=== PATIENT | male | born 1960 | race Caucasian/White ===

== ENCOUNTER 2017-02-21 07:55 | Emergency (ER) | payer MEDICAID ==
[~2017-02-21] VITALS: Ht 182.9 cm; Wt 108.9 kg
[~2017-02-21 07:55] MED LIST: ASPI-498 PO; CYCL1TAB18 PO; FENO145T20 PO; GABA-339 PO; IBUP800T24 PO; LIS5T PO; LOVA10TA54 PO; METF-372; NOR10T PO
[2017-02-21] MEDS ORDERED: SODIUM CHLORIDE 0.9% 1,000 ML IV ONE (08:49)
[2017-02-21] MEDS ORDERED: DIAZEPAM 5 MG/ML 2ML SYRG IV ONE (09:00)
[2017-02-21 09:30] LABS: Albumin 3.9 g/dL (3.4-5.0); BUN/Creatinine Ratio 12.1; Bilirubin, Total 0.5 mg/dL (0.2-1.0); Calcium 9.5 mg/dL (8.5-10.1); Potassium 4.2 mmol/L (3.5-5.1); Total Protein 8.2 g/dL (6.4-8.2)
[2017-02-21 09:51] LABS: Basophils # (auto) 0.1 uL; Basophils % (auto) 1.2 % (0.0-2.0); Eosinophils # (auto) 0.2 uL; Eosinophils % (auto) 1.5 % (0.0-7.0); Hematocrit 47.2 % (41.0-53.0); Hemoglobin 15.4 g/dL (13.5-17.5); Lymphocytes # (auto) 1.7 uL; Lymphocytes % (auto) 15.9 % (10.0-50.0); Mean Corpuscular Hemoglobin 30.6 pg (28.0-32.0); Mean Corpuscular Hgb Conc. 32.6 g/dL (32.0-36.0); Mean Corpuscular Volume 93.9 fL (80.0-100.0); Mean Platelet Volume 10.4 fL (6.9-10.8); Monocytes # (auto) 0.9 uL; Monocytes % (auto) 8.1 % (0.0-12.0); Neutrophils # (auto) 7.9 uL; Neutrophils % (auto) 73.3 % (37.0-80.0); Platelet Count (auto) 203 10^3/uL (140-450); Red Cell Distribution Width 13.8 % (11.8-14.3); White Blood Cell 10.8 10^3/uL (4.4-10.8)
[2017-02-21] MEDS ORDERED: LORazepam 2MG/ML-1ML VIAL IV ONE (10:00)
[2017-02-21 10:34] VITALS: BP 107/85
== END 2017-02-21 11:53 | disposition home or self-care (01) ==
LOC: ER 07:55
DX: M62.838 Other muscle spasm (principal); I10 Essential (primary) hypertension; J45.909 Unspecified asthma, uncomplicated; E11.9 Type 2 diabetes mellitus without complications; Z86.73 Personal history of transient ischemic attack (TIA), and cerebral infarction without residual deficits; Z79.82 Long term (current) use of aspirin; Z88.1 Allergy status to other antibiotic agents
CPT/HCPCS: 36415; 80053; 82962; 83735; 85025; 94761; 96361; 96374; 99284; J2060; J7030

== ENCOUNTER 2017-07-15 18:38 | Emergency (ER) | payer MEDICAID ==
[~2017-07-15] VITALS: Ht 182.9 cm; Wt 108.0 kg
[~2017-07-15 18:38] MED LIST changes: -FENO145T20 PO; +FENO1TAB42 PO
[2017-07-15 18:43] VITALS: BP 171/87
[2017-07-15] MEDS ORDERED: KETOROLAC TROMETH 60MG/2ML VIAL IM ONE (22:15)
[2017-07-15] MEDS ORDERED: CYCLOBENZAPRINE HCL 10 MG TAB PO ONE (22:15)
[2017-07-15] MEDS ORDERED: HYDROcodone-ACET 10/325MG TAB PO ONE (23:30)
== END 2017-07-16 00:15 | disposition home or self-care (01) ==
LOC: ER 18:38
DX: S22.42XA Multiple fractures of ribs, left side, initial encounter for closed fracture (principal); S62.641A Nondisplaced fracture of proximal phalanx of left index finger, initial encounter for closed fracture; S00.83XA Contusion of other part of head, initial encounter; I10 Essential (primary) hypertension; E11.9 Type 2 diabetes mellitus without complications; E78.5 Hyperlipidemia, unspecified; Z79.82 Long term (current) use of aspirin; W07.XXXA Fall from chair, initial encounter; Y93.89 Activity, other specified; Y92.89 Other specified places as the place of occurrence of the external cause; Y99.8 Other external cause status
CPT/HCPCS: 29130; 70140; 71101; 71250; 73130; 96372; 99284; J1885

== ENCOUNTER 2017-07-17 09:41 | Emergency (ER) | payer MEDICAID ==
[~2017-07-17] VITALS: Ht 182.9 cm; Wt 86.2 kg
[2017-07-17 10:06] VITALS: BP 137/76
[2017-07-17 10:36] LABS: Basophils # (auto) 0.1 uL; Basophils % (auto) 0.5 % (0.0-2.0); Eosinophils # (auto) 0.1 uL; Eosinophils % (auto) 1.3 % (0.0-7.0); Hematocrit 45.8 % (41.0-53.0); Hemoglobin 15.3 g/dL (13.5-17.5); Lymphocytes # (auto) 1.1 uL; Lymphocytes % (auto) 10.6 % (10.0-50.0); Mean Corpuscular Hgb Conc. 33.5 g/dL (32.0-36.0); Mean Corpuscular Volume 89.6 fL (80.0-100.0); Monocytes # (auto) 0.8 uL; Neutrophils # (auto) 8.4 uL; Neutrophils % (auto) 79.6 % (37.0-80.0); Platelet Count (auto) 191 10^3/uL (140-450); Red Blood Cells 5.12 10^6/uL (4.5-5.90); White Blood Cell 10.5 10^3/uL (4.4-10.8)
[2017-07-17 10:52] LABS: Albumin 3.6 g/dL (3.4-5.0); BUN/Creatinine Ratio 14.5; Bilirubin, Total 0.7 mg/dL (0.2-1.0); Calcium 8.7 mg/dL (8.5-10.1); Potassium 3.7 mmol/L (3.5-5.1); Total Protein 7.5 g/dL (6.4-8.2)
[2017-07-17] MEDS ORDERED: ONDANSETRON HCL 4 MG/2 ML VIAL IV ONE (11:30)
[2017-07-17] MEDS ORDERED: MORPHINE SULFATE 4 MG/ML SYR/VIAL IV ONE (11:30)
== END 2017-07-17 13:02 | disposition home or self-care (01) ==
LOC: EDBD 09:41 → ER 09:41
DX: S22.42XA Multiple fractures of ribs, left side, initial encounter for closed fracture (principal); M79.645 Pain in left finger(s); E78.5 Hyperlipidemia, unspecified; I10 Essential (primary) hypertension; E11.9 Type 2 diabetes mellitus without complications; W19.XXXA Unspecified fall, initial encounter; Y93.89 Activity, other specified; Y92.89 Other specified places as the place of occurrence of the external cause; Y99.8 Other external cause status
CPT/HCPCS: 36415; 71250; 80053; 85025; 93005; 96374; 96375; 99285; J2270; J2405

== ENCOUNTER 2017-07-19 02:09 | Inpatient (IN) | payer MEDICAID ==
[~2017-07-19] VITALS: Ht 182.9 cm; Wt 107.9 kg
[2017-07-19 04:35] LABS: Basophils # (auto) 0 uL; Basophils % (auto) 0.3 % (0.0-2.0); Eosinophils # (auto) 0 uL; Eosinophils % (auto) 0.3 % (0.0-7.0); Hematocrit 45.9 % (41.0-53.0); Hemoglobin 15.3 g/dL (13.5-17.5); Lymphocytes # (auto) 0.9 uL; Lymphocytes % (auto) 5.9 % (10.0-50.0); Mean Corpuscular Hemoglobin 30.3 pg (28.0-32.0); Mean Corpuscular Hgb Conc. 33.4 g/dL (32.0-36.0); Mean Corpuscular Volume 90.8 fL (80.0-100.0); Monocytes # (auto) 1.2 uL; Monocytes % (auto) 7.3 % (0.0-12.0); Neutrophils # (auto) 13.6 uL; Neutrophils % (auto) 86.2 % (37.0-80.0); Nucleated Red Blood Cells % 0.1 %; Platelet Count (auto) 219 10^3/uL (140-450); Red Blood Cells 5.06 10^6/uL (4.5-5.90); White Blood Cell 15.8 10^3/uL (4.4-10.8)
[2017-07-19 04:53] LABS: Alanine Aminotransferase 30 U/L (16-61); Albumin 3.7 g/dL (3.4-5.0); Anion Gap 4 (5-15); BUN/Creatinine Ratio 15.8; Blood Urea Nitrogen 12 mg/dL (7-18); Calcium 8.6 mg/dL (8.5-10.1); Carbon Dioxide 30 mmol/L (21-32); Chloride 101 mmol/L (98-107); GFR African American 137 mL/min; GFR Non-African American 113 mL/min; Glucose 240 mg/dL (74-106); Potassium 4.1 mmol/L (3.5-5.1); Sodium 135 mmol/L (136-145)
[2017-07-19 04:58] LABS: Alkaline Phosphatase 70 U/L (45-117); Aspartate Aminotransferase 19 U/L (15-37); Bilirubin, Total 0.7 mg/dL (0.2-1.0); Total Protein 8.1 g/dL (6.4-8.2)
[2017-07-19] MEDS ORDERED: SODIUM CHLORIDE 0.9% 1,000 ML IV ONE ×2 (08:02→12:28)
[2017-07-19] MEDS ORDERED: IOHEXOL 350 MG/ML 100ML IJ ONE (08:11)
[2017-07-19] MEDS ORDERED: ONDANSETRON HCL 4 MG/2 ML VIAL IV ONE (08:15)
[2017-07-19] MEDS ORDERED: MORPHINE SULFATE 4 MG/ML SYR/VIAL IV ONE (08:15)
[2017-07-19 10:57] LABS: Urine WBC None Seen /hpf (0 - 3)
[2017-07-19 11:14] LABS: Urine Bacteria NONE SEEN /hpf (None Seen); Urine Blood Negative /uL (Negative); Urine Specific Gravity 1.042 (1.001-1.035)
[2017-07-19] MEDS ORDERED: cefTRIAXone 1GM/10ml IVPUSH 10 ML IV ONE (12:30)
[2017-07-19] MEDS ORDERED: ALBUTEROL SULF 2.5 MG/0.5ML(0.5%) NEB SOLN NEB PRN (12:45)
[2017-07-19] MEDS ORDERED: ACETAMINOPHEN 500 MG TAB PO PRN (12:45)
[2017-07-19] MEDS ORDERED: PROMETHAZINE HCL 25 MG/ML 1ML IV PRN (12:45)
[2017-07-19] MEDS ORDERED: NITROGLYCERIN 0.4 MG SL TAB SL PRN (12:45)
[2017-07-19] MEDS ORDERED: LORazepam 0.5 MG TAB PO PRN (12:45)
[2017-07-19] MEDS ORDERED: DEXTROSE (50%) 50ML SYRG IV PRN (12:45)
[2017-07-19] MEDS ORDERED: OSELTAMIVIR 75 MG CAP PO ONE (12:45)
[2017-07-19] MEDS ORDERED: HYDROcodone-ACET 5/325MG TAB PO PRN (12:45)
[2017-07-19] MEDS ORDERED: MORPHINE SULFATE 4 MG/ML SYR/VIAL IV PRN (12:45)
[2017-07-19] MEDS: SODIUM CHLORIDE 0.9% 1,000 ML IV SCH (13:24)
[2017-07-19 13:27] LABS: Alcohol, Urine < 3.0 mg/dL (0-5); Amphetamine Screen, Urine NEGATIVE (NEGATIVE); Barbiturate Scree,Urine NEGATIVE (NEGATIVE); Benzodiazephine Screen, Urine NEGATIVE (NEGATIVE); Cannabinoid Screen, Urine POSITIVE (NEGATIVE); Cocaine Screen, Urine NEGATIVE (NEGATIVE); Opiate Scree,Urine POSITIVE (NEGATIVE); Phencyclidine Screen, Urine NEGATIVE (NEGATIVE)
[2017-07-19] MEDS ORDERED: AZITHROMYCIN 500MG/ 250ML 250 ML IV SCH (13:30)
[2017-07-19 13:59] VITALS: BP 122/69
[2017-07-19] MEDS: HYDROcodone-ACET 10/325MG TAB PO PRN (14:14)
[2017-07-19] MEDS: LISINOPRIL 5 MG TAB PO SCH (14:14)
[2017-07-19] MEDS: ASPirin-EC 81 mg tab PO SCH (14:14)
[2017-07-19] MEDS: ENOXAPARIN SOD 40 MG/0.4 ML SYRINGE SC SCH (14:15)
[2017-07-19] MEDS: MORPHINE SULFATE 4 MG/ML SYR/VIAL IV PRN ×2 (14:44→19:03)
[2017-07-19] MEDS ORDERED: methylPREDNISolone SOD SUCC 125 MG/2 ML VL IV ONE (15:00)
[2017-07-19] MEDS: CLINDAMYCIN 600MG IV 50 ML IV SCH ×2 (15:28→22:27)
[2017-07-19 16:00] VITALS: BP 117/70
[2017-07-19] MEDS: ACCU-CHEK COMFORT CURVE STRIP VI SCH ×2 (16:59→22:00)
[2017-07-19] MEDS: InsuLIN REG 1unit/0.01ml Soln (100units/ml) SC SCH ×2 (17:06→22:00)
[2017-07-19] MEDS: ALBUTEROL SULF 2.5 MG/0.5ML(0.5%) NEB SOLN NEB SCH (19:10)
[2017-07-19] MEDS: IPRATROPIUM BROM 0.5 MG/2.5ML INH SOL NEB SCH (19:11)
[2017-07-19 20:00] VITALS: BP 119/69
[2017-07-19] MEDS ORDERED: PATIENTS OWN MEDICATION (Gabapentin 800 MG) PO SCH (22:00)
[2017-07-19] MEDS ORDERED: PATIENTS OWN MEDICATION (Lovastatin 10 MG) PO SCH (22:00)
[2017-07-19 22:13] VITALS: BP 119/69
[2017-07-19] MEDS: GABAPENTIN 400 MG CAP PO SCH (22:26)
[2017-07-19] MEDS: OSELTAMIVIR 75 MG CAP PO SCH (22:26)
[2017-07-19] MEDS: CYCLOBENZAPRINE HCL 10 MG TAB PO SCH (22:26)
[2017-07-19] MEDS: PRAVASTATIN SODIUM 20 MG TAB PO SCH (22:26)
[2017-07-19] MEDS: MORPHINE SULF 15mg ER tab PO SCH (22:27)
[2017-07-19] MEDS: methylPREDNISolone SOD SUCC 40 MG/ML VL IV SCH (22:27)
[2017-07-20] MEDS: ALBUTEROL SULF 2.5 MG/0.5ML(0.5%) NEB SOLN NEB SCH ×4 (01:11→18:00)
[2017-07-20] MEDS: IPRATROPIUM BROM 0.5 MG/2.5ML INH SOL NEB SCH ×4 (01:11→18:00)
[2017-07-20] MEDS: MORPHINE SULFATE 4 MG/ML SYR/VIAL IV PRN ×2 (01:23→05:56)
[2017-07-20 05:37] VITALS: BP 117/66
[2017-07-20 05:44] LABS: Basophils # (auto) 0 uL; Basophils % (auto) 0.1 % (0.0-2.0); Eosinophils # (auto) 0 uL; Hemoglobin 14.3 g/dL (13.5-17.5); Lymphocytes # (auto) 0.4 uL; Mean Corpuscular Hemoglobin 30.1 pg (28.0-32.0); Mean Corpuscular Hgb Conc. 33.3 g/dL (32.0-36.0); Mean Corpuscular Volume 90.5 fL (80.0-100.0); Monocytes # (auto) 0.3 uL; Monocytes % (auto) 1.7 % (0.0-12.0); Neutrophils # (auto) 13.8 uL; Neutrophils % (auto) 95.2 % (37.0-80.0); Platelet Count (auto) 220 10^3/uL (140-450); Red Blood Cells 4.75 10^6/uL (4.5-5.90); Red Cell Distribution Width 13.6 % (11.8-14.3); White Blood Cell 14.5 10^3/uL (4.4-10.8)
[2017-07-20] MEDS: SODIUM CHLORIDE 0.9% 1,000 ML IV SCH ×2 (05:57→15:48)
[2017-07-20] MEDS: CLINDAMYCIN 600MG IV 50 ML IV SCH ×3 (06:02→22:19)
[2017-07-20] MEDS: ACCU-CHEK COMFORT CURVE STRIP VI SCH ×3 (06:50→17:35)
[2017-07-20] MEDS: InsuLIN REG 1unit/0.01ml Soln (100units/ml) SC SCH ×3 (06:51→17:35)
[2017-07-20 06:52] LABS: Albumin 3.2 g/dL (3.4-5.0); BUN/Creatinine Ratio 18.8; Bilirubin, Total 0.6 mg/dL (0.2-1.0); Calcium 8.9 mg/dL (8.5-10.1); Total Protein 7.6 g/dL (6.4-8.2)
[2017-07-20 08:00] VITALS: BP 114/69
[2017-07-20] MEDS: OSELTAMIVIR 75 MG CAP PO SCH (08:02)
[2017-07-20] MEDS ORDERED: cefTRIAXone 1GM/10ml IVPUSH 10 ML IV SCH (09:00)
[2017-07-20] MEDS: GABAPENTIN 400 MG CAP PO SCH ×2 (09:03→22:18)
[2017-07-20] MEDS: ASPirin-EC 81 mg tab PO SCH (09:04)
[2017-07-20] MEDS: methylPREDNISolone SOD SUCC 40 MG/ML VL IV SCH ×2 (09:04→22:19)
[2017-07-20] MEDS: ENOXAPARIN SOD 40 MG/0.4 ML SYRINGE SC SCH (09:04)
[2017-07-20] MEDS: Fenofibrate 145MG TAB PO SCH (09:04)
[2017-07-20] MEDS: LISINOPRIL 5 MG TAB PO SCH (09:04)
[2017-07-20] MEDS: LEVOFLOXACIN 500MG 100 ML IV SCH (09:04)
[2017-07-20] MEDS: MORPHINE SULF 15mg ER tab PO SCH ×2 (09:05→22:18)
[2017-07-20] MEDS ORDERED: LOVA20TA4 PO (09:08)
[2017-07-20] MEDS ORDERED: PREG100C PO (09:08)
[2017-07-20] MEDS ORDERED: DEXTROSE (50%) 50ML SYRG IV PRN (10:00)
[2017-07-20 12:00] VITALS: BP 108/63
[2017-07-20] MEDS: LACTULOSE 20Gm/30ML SOLN PO PRN (14:27)
[2017-07-20 16:46] VITALS: BP 110/71
[2017-07-20 22:00] VITALS: BP 123/71
[2017-07-20] MEDS: CYCLOBENZAPRINE HCL 10 MG TAB PO SCH (22:18)
[2017-07-20] MEDS: PRAVASTATIN SODIUM 20 MG TAB PO SCH (22:18)
[2017-07-20] MEDS: HYDROcodone-ACET 10/325MG TAB PO PRN (23:31)
[2017-07-21] MEDS: ACCU-CHEK COMFORT CURVE STRIP VI SCH ×5 (00:25→23:30)
[2017-07-21] MEDS: InsuLIN REG 1unit/0.01ml Soln (100units/ml) SC SCH ×5 (00:25→23:30)
[2017-07-21] MEDS: TEMAZEPAM 15 MG CAP PO PRN (01:34)
[2017-07-21 05:00] VITALS: BP 109/71
[2017-07-21] MEDS: ALBUTEROL SULF 2.5 MG/0.5ML(0.5%) NEB SOLN NEB SCH ×5 (06:00→18:30)
[2017-07-21] MEDS: IPRATROPIUM BROM 0.5 MG/2.5ML INH SOL NEB SCH ×5 (06:00→18:30)
[2017-07-21 06:32] LABS: Basophils # (auto) 0 uL; Basophils % (auto) 0.1 % (0.0-2.0); Eosinophils # (auto) 0 uL; Hemoglobin 13.6 g/dL (13.5-17.5); Lymphocytes # (auto) 0.8 uL; Mean Corpuscular Hemoglobin 30.1 pg (28.0-32.0); Mean Corpuscular Hgb Conc. 33.1 g/dL (32.0-36.0); Mean Corpuscular Volume 90.7 fL (80.0-100.0); Monocytes # (auto) 0.7 uL; Monocytes % (auto) 3.9 % (0.0-12.0); Neutrophils # (auto) 15.4 uL; Nucleated Red Blood Cells % 0.1 %; Platelet Count (auto) 223 10^3/uL (140-450); Red Blood Cells 4.52 10^6/uL (4.5-5.90); Red Cell Distribution Width 13.7 % (11.8-14.3); White Blood Cell 16.9 10^3/uL (4.4-10.8)
[2017-07-21] MEDS: CLINDAMYCIN 600MG IV 50 ML IV SCH ×3 (06:33→21:55)
[2017-07-21] MEDS: SODIUM CHLORIDE 0.9% 1,000 ML IV SCH ×2 (06:34→18:04)
[2017-07-21 07:04] LABS: Albumin 3.2 g/dL (3.4-5.0); BUN/Creatinine Ratio 21.2; Calcium 8.5 mg/dL (8.5-10.1); Potassium 4.5 mmol/L (3.5-5.1)
[2017-07-21 07:07] LABS: Bilirubin, Total 0.7 mg/dL (0.2-1.0); Total Protein 7.1 g/dL (6.4-8.2)
[2017-07-21 08:00] VITALS: BP_SYST 109; BP_SYST 117; BP_DIAS 70; BP_DIAS 73
[2017-07-21] MEDS: Fenofibrate 145MG TAB PO SCH (10:00)
[2017-07-21] MEDS: ENOXAPARIN SOD 40 MG/0.4 ML SYRINGE SC SCH (10:09)
[2017-07-21] MEDS: LEVOFLOXACIN 500MG 100 ML IV SCH (10:09)
[2017-07-21] MEDS: ASPirin-EC 81 mg tab PO SCH (10:10)
[2017-07-21] MEDS: LACTULOSE 20Gm/30ML SOLN PO PRN (10:10)
[2017-07-21] MEDS: LISINOPRIL 5 MG TAB PO SCH (10:10)
[2017-07-21] MEDS: GABAPENTIN 400 MG CAP PO SCH ×2 (10:10→21:55)
[2017-07-21] MEDS: MORPHINE SULF 15mg ER tab PO SCH ×2 (10:31→21:55)
[2017-07-21] MEDS ORDERED: MORP1TAB12 PO (10:40)
[2017-07-21] MEDS ORDERED: LOVA10TA54 PO (10:40)
[2017-07-21 12:00] VITALS: BP 105/74
[2017-07-21 17:00] VITALS: BP 118/79
[2017-07-21 21:30] VITALS: BP 128/83
[2017-07-21] MEDS: CYCLOBENZAPRINE HCL 10 MG TAB PO SCH (21:54)
[2017-07-21] MEDS: PRAVASTATIN SODIUM 20 MG TAB PO SCH (21:55)
[2017-07-22] MEDS: HYDROcodone-ACET 10/325MG TAB PO PRN (00:05)
[2017-07-22] MEDS: TEMAZEPAM 15 MG CAP PO PRN (01:15)
[2017-07-22 05:00] VITALS: BP 116/79
[2017-07-22 05:32] LABS: Basophils # (auto) 0 uL; Basophils % (auto) 0.5 % (0.0-2.0); Eosinophils # (auto) 0 uL; Eosinophils % (auto) 0.4 % (0.0-7.0); Hematocrit 40.3 % (41.0-53.0); Hemoglobin 13.7 g/dL (13.5-17.5); Lymphocytes # (auto) 2.4 uL; Lymphocytes % (auto) 23.6 % (10.0-50.0); Mean Corpuscular Hemoglobin 30.7 pg (28.0-32.0); Mean Corpuscular Hgb Conc. 34.1 g/dL (32.0-36.0); Mean Corpuscular Volume 90.1 fL (80.0-100.0); Monocytes # (auto) 1.1 uL; Monocytes % (auto) 10.5 % (0.0-12.0); Neutrophils # (auto) 6.6 uL; Platelet Count (auto) 202 10^3/uL (140-450); Red Blood Cells 4.47 10^6/uL (4.5-5.90); Red Cell Distribution Width 13.7 % (11.8-14.3); White Blood Cell 10.2 10^3/uL (4.4-10.8)
[2017-07-22 05:49] LABS: BUN/Creatinine Ratio 21.2; Calcium 8.2 mg/dL (8.5-10.1); Potassium 3.5 mmol/L (3.5-5.1)
[2017-07-22 05:52] LABS: Bilirubin, Total 0.4 mg/dL (0.2-1.0); Total Protein 6.6 g/dL (6.4-8.2)
[2017-07-22] MEDS: CLINDAMYCIN 600MG IV 50 ML IV SCH (06:09)
[2017-07-22] MEDS: InsuLIN REG 1unit/0.01ml Soln (100units/ml) SC SCH (06:22)
[2017-07-22] MEDS: ACCU-CHEK COMFORT CURVE STRIP VI SCH (06:22)
[2017-07-22] MEDS: IPRATROPIUM BROM 0.5 MG/2.5ML INH SOL NEB SCH ×2 (06:42)
[2017-07-22] MEDS: ALBUTEROL SULF 2.5 MG/0.5ML(0.5%) NEB SOLN NEB SCH ×2 (06:42)
[2017-07-22 09:00] VITALS: BP 132/83
[2017-07-22 09:16] VITALS: BP 116/79
[2017-07-22 09:44] VITALS: BP 109/73
[2017-07-22] MEDS: SODIUM CHLORIDE 0.9% 1,000 ML IV SCH (10:00)
[2017-07-22] MEDS: LEVOFLOXACIN 500MG 100 ML IV SCH (10:00)
[2017-07-22] MEDS: MORPHINE SULF 15mg ER tab PO SCH (10:00)
[2017-07-22] MEDS: Fenofibrate 145MG TAB PO SCH (10:00)
[2017-07-22] MEDS: ASPirin-EC 81 mg tab PO SCH (10:01)
[2017-07-22] MEDS: GABAPENTIN 400 MG CAP PO SCH (10:01)
[2017-07-22] MEDS: LISINOPRIL 5 MG TAB PO SCH (10:02)
[2017-07-22] MEDS: ENOXAPARIN SOD 40 MG/0.4 ML SYRINGE SC SCH (10:03)
== END 2017-07-22 10:15 | disposition home or self-care (01) | DRG 720 ==
LOC: EDBD 02:09 → ER 02:09 → TELE 02:10 → TELE-WESTW 14:22
PROVIDERS: ADMIT Internal Medicine; ATTEND Internal Medicine
PROC: 2W3KX1Z Immobilization of Left Finger using Splint (ICD-10-PCS; principal; 2017-07-19)
DX: A41.9 Sepsis, unspecified organism (principal); J96.00 Acute respiratory failure, unspecified whether with hypoxia or hypercapnia; T17.890A Other foreign object in other parts of respiratory tract causing asphyxiation, initial encounter; S22.43XA Multiple fractures of ribs, bilateral, initial encounter for closed fracture; J18.1 Lobar pneumonia, unspecified organism; E11.65 Type 2 diabetes mellitus with hyperglycemia; I10 Essential (primary) hypertension; S62.641A Nondisplaced fracture of proximal phalanx of left index finger, initial encounter for closed fracture; E78.5 Hyperlipidemia, unspecified; E66.9 Obesity, unspecified; F12.90 Cannabis use, unspecified, uncomplicated; H57.8 Other specified disorders of eye and adnexa; S00.81XA Abrasion of other part of head, initial encounter; J98.11 Atelectasis; W18.39XA Other fall on same level, initial encounter; Z68.32 Body mass index [BMI] 32.0-32.9, adult; Z80.3 Family history of malignant neoplasm of breast; Z82.49 Family history of ischemic heart disease and other diseases of the circulatory system; Z83.3 Family history of diabetes mellitus; Z86.73 Personal history of transient ischemic attack (TIA), and cerebral infarction without residual deficits; Z87.891 Personal history of nicotine dependence; Y93.89 Activity, other specified; Y92.89 Other specified places as the place of occurrence of the external cause; Y99.8 Other external cause status
CPT/HCPCS: 36415; 71275; 80053; 80061; 80307; 81001; 82550; 82962; 83036; 83735; 84484; 85025; 85379; 87070; 87081; 87205; 87804; 93005; 94640; 94761; 96374; 96375; J1815; J1956; J2405; J3490

== ENCOUNTER 2017-10-12 12:13 | Inpatient (IN) | payer MEDICAID ==
[~2017-10-12] VITALS: Ht 177.8 cm; Wt 102.9 kg
[~2017-10-12 12:13] MED LIST changes: -ASPI-498 PO; -FENO1TAB42 PO; -GABA-339 PO; -IBUP800T24 PO; +MORP1TAB12 PO; +PREG100C PO
[2017-10-12] MEDS ORDERED: SODIUM CHLORIDE 0.9% 1,000 ML IVB ONE (12:36)
[2017-10-12 12:45] LABS: Basophils # (auto) 0.1 uL; Basophils % (auto) 0.8 % (0.0-2.0); Eosinophils # (auto) 0.1 uL; Eosinophils % (auto) 0.3 % (0.0-7.0); Hematocrit 48.6 % (41.0-53.0); Hemoglobin 16.5 g/dL (13.5-17.5); Lymphocytes # (auto) 2.2 uL; Lymphocytes % (auto) 12.5 % (10.0-50.0); Mean Corpuscular Hemoglobin 30.6 pg (28.0-32.0); Mean Corpuscular Hgb Conc. 33.9 g/dL (32.0-36.0); Mean Corpuscular Volume 90.1 fL (80.0-100.0); Monocytes # (auto) 1.7 uL; Monocytes % (auto) 9.4 % (0.0-12.0); Neutrophils # (auto) 13.7 uL; Platelet Count (auto) 291 10^3/uL (140-450); Red Blood Cells 5.39 10^6/uL (4.5-5.90); Red Cell Distribution Width 13.9 % (11.8-14.3); White Blood Cell 17.8 10^3/uL (4.4-10.8)
[2017-10-12 13:01] LABS: INR 0.97 (0.9-1.15); Partial Thromboplastin Time 25.5 sec (23.78-33.04); Prothrombin Time 10.4 sec (9.27-12.13)
[2017-10-12 13:07] LABS: Alanine Aminotransferase 40 U/L (16-61); Albumin 4.1 g/dL (3.4-5.0); Alkaline Phosphatase 88 U/L (45-117); Anion Gap 12 (5-15); Aspartate Aminotransferase 14 U/L (15-37); BUN/Creatinine Ratio 21.4; Bilirubin, Total 0.6 mg/dL (0.2-1.0); Blood Urea Nitrogen 18 mg/dL (7-18); Calcium 9.3 mg/dL (8.5-10.1); Carbon Dioxide 23 mmol/L (21-32); Chloride 96 mmol/L (98-107); GFR African American 122 mL/min; GFR Non-African American 100 mL/min; Glucose 190 mg/dL (74-106); Magnesium 2.2 mg/dL (1.6-2.6); Potassium 3.9 mmol/L (3.5-5.1); Sodium 131 mmol/L (136-145); Total Protein 8.3 g/dL (6.4-8.2)
[2017-10-12 14:08] LABS: Urine Bacteria NONE SEEN /hpf (None Seen); Urine Blood Negative /uL (Negative); Urine Mucus FEW (None Seen); Urine Specific Gravity 1.005 (1.001-1.035); Urine WBC <1 /hpf (0 - 3)
[2017-10-12 14:33] LABS: Alcohol, Urine < 3.0 mg/dL (0-5); Amphetamine Screen, Urine NEGATIVE (NEGATIVE); Barbiturate Scree,Urine NEGATIVE (NEGATIVE); Benzodiazephine Screen, Urine NEGATIVE (NEGATIVE); Cocaine Screen, Urine NEGATIVE (NEGATIVE); Opiate Scree,Urine NEGATIVE (NEGATIVE); Phencyclidine Screen, Urine NEGATIVE (NEGATIVE)
[2017-10-12] MEDS ORDERED: MORPHINE SULFATE 8mg/ml INJ SDV IV ONE (15:00)
[2017-10-12] MEDS ORDERED: ONDANSETRON HCL 4 MG/2 ML VIAL IV ONE (15:00)
[2017-10-12] MEDS ORDERED: cefTRIAXone 1GM/10ml IVPUSH 10 ML IV ONE (15:45)
[2017-10-12] MEDS ORDERED: DEXTROSE (50%) 50ML SYRG IV PRN (16:00)
[2017-10-12] MEDS ORDERED: TEMAZEPAM 15 MG CAP PO PRN (16:00)
[2017-10-12] MEDS ORDERED: NITROGLYCERIN 0.4 MG SL TAB SL PRN (16:00)
[2017-10-12] MEDS ORDERED: ONDANSETRON HCL 4 MG/2 ML VIAL IV PRN (16:00)
[2017-10-12] MEDS ORDERED: DOCUSATE SOD 100 MG CAP PO PRN (16:00)
[2017-10-12] MEDS ORDERED: MORPHINE SULFATE 8mg/ml INJ SDV IV PRN (16:00)
[2017-10-12 16:10] LABS: Cannabinoid Screen, Urine POSITIVE (NEGATIVE)
[2017-10-12] MEDS: SODIUM CHLORIDE 0.9% 1,000 ML IV SCH (16:40)
[2017-10-12] MEDS: ACCU-CHEK COMFORT CURVE STRIP VI SCH ×2 (16:53→22:18)
[2017-10-12] MEDS: InsuLIN REG 1unit/0.01ml Soln (100units/ml) SC SCH ×2 (16:53→22:18)
[2017-10-12 17:36] VITALS: BP 142/81
[2017-10-12 18:35] LABS: Lactic Acid w/Reflex 2.4 mmol/L (0.4-2.0)
[2017-10-12] MEDS: CARISOPRODOL 350 MG TAB PO PRN (18:52)
[2017-10-12] MEDS: metroNIDAZOLE 500MG/100ML 100 ML IV SCH (18:52)
[2017-10-12 21:50] VITALS: BP 135/85
[2017-10-12] MEDS: PREGABALIN 25 MG CAP PO SCH (22:17)
[2017-10-12] MEDS: MORPHINE SULF 15mg ER tab PO SCH (22:17)
[2017-10-12] MEDS: ATORVASTATIN 20 MG TAB PO SCH (22:17)
[2017-10-12] MEDS: FAMOTIDINE 20 MG TAB PO SCH (22:17)
[2017-10-13] MEDS: metroNIDAZOLE 500MG/100ML 100 ML IV SCH ×4 (00:25→17:33)
[2017-10-13] MEDS: HYDROcodone-ACET 5/325MG TAB PO PRN (05:28)
[2017-10-13 05:51] LABS: Basophils # (auto) 0.1 uL; Basophils % (auto) 0.6 % (0.0-2.0); Eosinophils # (auto) 0.1 uL; Eosinophils % (auto) 0.6 % (0.0-7.0); Hematocrit 45.1 % (41.0-53.0); Hemoglobin 15.4 g/dL (13.5-17.5); Lymphocytes # (auto) 2.1 uL; Lymphocytes % (auto) 14.5 % (10.0-50.0); Mean Corpuscular Hemoglobin 31.4 pg (28.0-32.0); Mean Corpuscular Hgb Conc. 34.1 g/dL (32.0-36.0); Mean Corpuscular Volume 91.8 fL (80.0-100.0); Monocytes # (auto) 1.2 uL; Monocytes % (auto) 8.2 % (0.0-12.0); Neutrophils # (auto) 11.2 uL; Neutrophils % (auto) 76.1 % (37.0-80.0); Platelet Count (auto) 245 10^3/uL (140-450); Red Blood Cells 4.91 10^6/uL (4.5-5.90); Red Cell Distribution Width 13.7 % (11.8-14.3); White Blood Cell 14.7 10^3/uL (4.4-10.8)
[2017-10-13 05:54] VITALS: BP 121/87
[2017-10-13 06:14] LABS: Albumin 3.6 g/dL (3.4-5.0); BUN/Creatinine Ratio 24.2; Bilirubin, Total 0.6 mg/dL (0.2-1.0); Calcium 8.7 mg/dL (8.5-10.1); Potassium 4.2 mmol/L (3.5-5.1); Total Protein 7.3 g/dL (6.4-8.2)
[2017-10-13] MEDS: InsuLIN REG 1unit/0.01ml Soln (100units/ml) SC SCH ×4 (06:35→22:25)
[2017-10-13] MEDS: ACCU-CHEK COMFORT CURVE STRIP VI SCH ×4 (06:35→22:19)
[2017-10-13 08:00] VITALS: BP 114/73
[2017-10-13] MEDS: CARISOPRODOL 350 MG TAB PO PRN ×2 (09:20→17:34)
[2017-10-13] MEDS: FAMOTIDINE 20 MG TAB PO SCH ×2 (09:20→22:18)
[2017-10-13] MEDS: LISINOPRIL 5 MG TAB PO SCH (09:21)
[2017-10-13] MEDS: MORPHINE SULF 15mg ER tab PO SCH ×2 (09:21→22:19)
[2017-10-13] MEDS: MULTIPLE VITAMIN TAB PO SCH (09:21)
[2017-10-13] MEDS: JANUVIA 100MG PO SCH (09:22)
[2017-10-13] MEDS: ENOXAPARIN SOD 40 MG/0.4 ML SYRINGE SC SCH (09:22)
[2017-10-13] MEDS: cefTRIAXone 1GM/10ml IVPUSH 10 ML IV SCH (09:22)
[2017-10-13] MEDS: PREGABALIN 25 MG CAP PO SCH ×2 (11:02→22:18)
[2017-10-13 12:00] VITALS: BP 119/80
[2017-10-13] MEDS: SODIUM CHLORIDE 0.9% 1,000 ML IV SCH (13:39)
[2017-10-13 17:00] VITALS: BP 112/66
[2017-10-13 20:14] VITALS: BP 110/68
[2017-10-13 22:00] VITALS: BP 110/68
[2017-10-13] MEDS: ATORVASTATIN 20 MG TAB PO SCH (22:19)
[2017-10-14] VITALS (7 sets, daily range): BP systolic 114–140; BP diastolic 73–83
[2017-10-14] MEDS: metroNIDAZOLE 500MG/100ML 100 ML IV SCH ×4 (00:32→17:49)
[2017-10-14] MEDS: SODIUM CHLORIDE 0.9% 1,000 ML IV SCH ×2 (00:32→17:49)
[2017-10-14] MEDS: CARISOPRODOL 350 MG TAB PO PRN ×3 (05:34→22:05)
[2017-10-14 06:45] LABS: Basophils # (auto) 0.1 uL; Basophils % (auto) 0.7 % (0.0-2.0); Eosinophils # (auto) 0.1 uL; Eosinophils % (auto) 0.7 % (0.0-7.0); Hematocrit 47.4 % (41.0-53.0); Hemoglobin 15.9 g/dL (13.5-17.5); Lymphocytes # (auto) 2.3 uL; Lymphocytes % (auto) 16.8 % (10.0-50.0); Mean Corpuscular Hemoglobin 30.9 pg (28.0-32.0); Mean Corpuscular Hgb Conc. 33.6 g/dL (32.0-36.0); Mean Corpuscular Volume 91.9 fL (80.0-100.0); Monocytes # (auto) 1.2 uL; Monocytes % (auto) 9.2 % (0.0-12.0); Neutrophils # (auto) 9.8 uL; Neutrophils % (auto) 72.6 % (37.0-80.0); Nucleated Red Blood Cells % 0.2 %; Platelet Count (auto) 262 10^3/uL (140-450); Red Blood Cells 5.16 10^6/uL (4.5-5.90); Red Cell Distribution Width 13.3 % (11.8-14.3); White Blood Cell 13.5 10^3/uL (4.4-10.8)
[2017-10-14] MEDS: ACCU-CHEK COMFORT CURVE STRIP VI SCH ×4 (06:49→22:05)
[2017-10-14] MEDS: InsuLIN REG 1unit/0.01ml Soln (100units/ml) SC SCH ×4 (06:52→22:05)
[2017-10-14 07:05] LABS: Albumin 3.6 g/dL (3.4-5.0); BUN/Creatinine Ratio 17.6; Calcium 8.8 mg/dL (8.5-10.1); Potassium 4.1 mmol/L (3.5-5.1)
[2017-10-14 07:07] LABS: Bilirubin, Total 0.6 mg/dL (0.2-1.0); Total Protein 7.6 g/dL (6.4-8.2)
[2017-10-14] MEDS: ENOXAPARIN SOD 40 MG/0.4 ML SYRINGE SC SCH (10:00)
[2017-10-14] MEDS: JANUVIA 100MG PO SCH (10:00)
[2017-10-14] MEDS: MORPHINE SULF 15mg ER tab PO SCH ×2 (10:00→22:00)
[2017-10-14] MEDS: FAMOTIDINE 20 MG TAB PO SCH ×3 (10:43→22:12)
[2017-10-14] MEDS: PREGABALIN 25 MG CAP PO SCH ×3 (10:44→22:11)
[2017-10-14] MEDS: MULTIPLE VITAMIN TAB PO SCH ×2 (10:45→10:55)
[2017-10-14] MEDS: cefTRIAXone 1GM/10ml IVPUSH 10 ML IV SCH ×2 (10:48→10:54)
[2017-10-14] MEDS: LISINOPRIL 5 MG TAB PO SCH (10:55)
[2017-10-14] MEDS: HYDROcodone-ACET 5/325MG TAB PO PRN ×2 (11:13→22:05)
[2017-10-14] MEDS: ATORVASTATIN 20 MG TAB PO SCH (22:04)
[2017-10-14] MEDS: PRAMIPEXOLE DIHYDROCHLORIDE MO 0.25 MG TAB PO SCH (22:04)
[2017-10-15] MEDS: metroNIDAZOLE 500MG/100ML 100 ML IV SCH ×4 (00:04→18:00)
[2017-10-15] MEDS: HYDROcodone-ACET 5/325MG TAB PO PRN ×2 (04:10→16:43)
[2017-10-15 05:00] VITALS: BP 108/62
[2017-10-15] MEDS: ACCU-CHEK COMFORT CURVE STRIP VI SCH ×4 (06:16→21:00)
[2017-10-15] MEDS: InsuLIN REG 1unit/0.01ml Soln (100units/ml) SC SCH ×4 (06:16→21:04)
[2017-10-15] MEDS: CARISOPRODOL 350 MG TAB PO PRN ×2 (06:16→16:42)
[2017-10-15 07:27] LABS: % Iron Saturation 50.6 % (20-55)
[2017-10-15 09:00] VITALS: BP 128/76
[2017-10-15] MEDS: ENOXAPARIN SOD 40 MG/0.4 ML SYRINGE SC SCH (10:00)
[2017-10-15] MEDS: JANUVIA 100MG PO SCH (10:00)
[2017-10-15] MEDS: MORPHINE SULF 15mg ER tab PO SCH ×2 (10:57→21:02)
[2017-10-15] MEDS: PREGABALIN 25 MG CAP PO SCH ×2 (10:57→21:03)
[2017-10-15] MEDS: FAMOTIDINE 20 MG TAB PO SCH ×2 (10:58→21:02)
[2017-10-15] MEDS: SODIUM CHLORIDE 0.9% 1,000 ML IV SCH (10:59)
[2017-10-15] MEDS: MULTIPLE VITAMIN TAB PO SCH (10:59)
[2017-10-15] MEDS: LISINOPRIL 5 MG TAB PO SCH (10:59)
[2017-10-15 12:30] VITALS: BP 140/83
[2017-10-15 17:11] VITALS: BP 126/74
[2017-10-15] MEDS: ACETAMINOPHEN 325 MG TAB PO PRN (21:01)
[2017-10-15] MEDS: PRAMIPEXOLE DIHYDROCHLORIDE MO 0.25 MG TAB PO SCH (21:01)
[2017-10-15] MEDS: ATORVASTATIN 20 MG TAB PO SCH (21:02)
[2017-10-15 22:00] VITALS: BP 131/71
[2017-10-16] MEDS: SODIUM CHLORIDE 0.9% 1,000 ML IV SCH (03:10)
[2017-10-16 04:55] VITALS: BP 116/68
[2017-10-16] MEDS: metroNIDAZOLE 500MG/100ML 100 ML IV SCH ×2 (05:03)
[2017-10-16] MEDS: HYDROcodone-ACET 5/325MG TAB PO PRN (05:04)
[2017-10-16] MEDS: CARISOPRODOL 350 MG TAB PO PRN (05:04)
[2017-10-16] MEDS: ACETAMINOPHEN 325 MG TAB PO PRN (05:04)
[2017-10-16 06:24] LABS: Basophils # (auto) 0.1 uL; Basophils % (auto) 0.9 % (0.0-2.0); Eosinophils # (auto) 0.1 uL; Eosinophils % (auto) 0.7 % (0.0-7.0); Hematocrit 44.8 % (41.0-53.0); Hemoglobin 15.2 g/dL (13.5-17.5); Lymphocytes % (auto) 17.2 % (10.0-50.0); Mean Corpuscular Hemoglobin 31.2 pg (28.0-32.0); Mean Corpuscular Hgb Conc. 33.8 g/dL (32.0-36.0); Mean Corpuscular Volume 92.4 fL (80.0-100.0); Monocytes # (auto) 1.2 uL; Neutrophils # (auto) 8.4 uL; Neutrophils % (auto) 71.2 % (37.0-80.0); Nucleated Red Blood Cells % 0.1 %; Platelet Count (auto) 232 10^3/uL (140-450); Red Blood Cells 4.85 10^6/uL (4.5-5.90); Red Cell Distribution Width 13.6 % (11.8-14.3); White Blood Cell 11.8 10^3/uL (4.4-10.8)
[2017-10-16] MEDS: InsuLIN REG 1unit/0.01ml Soln (100units/ml) SC SCH (07:00)
[2017-10-16] MEDS: ACCU-CHEK COMFORT CURVE STRIP VI SCH (07:00)
[2017-10-16 07:20] LABS: Potassium 4.2 mmol/L (3.5-5.1)
[2017-10-16 07:28] LABS: Albumin 3.3 g/dL (3.4-5.0); BUN/Creatinine Ratio 17.5
[2017-10-16 07:31] LABS: Bilirubin, Total 0.5 mg/dL (0.2-1.0); Total Protein 7.1 g/dL (6.4-8.2)
[2017-10-16 08:33] VITALS: BP 119/76
[2017-10-16] MEDS: cefTRIAXone 1GM/10ml IVPUSH 10 ML IV SCH (09:00)
[2017-10-16] MEDS: JANUVIA 100MG PO SCH (10:00)
[2017-10-16] MEDS: MULTIPLE VITAMIN TAB PO SCH (10:39)
[2017-10-16] MEDS: LISINOPRIL 5 MG TAB PO SCH (10:40)
[2017-10-16] MEDS: PREGABALIN 25 MG CAP PO SCH (10:41)
[2017-10-16] MEDS: MORPHINE SULF 15mg ER tab PO SCH (10:41)
[2017-10-16] MEDS: ENOXAPARIN SOD 40 MG/0.4 ML SYRINGE SC SCH (10:44)
[2017-10-16 12:14] VITALS: BP 107/75
== END 2017-10-16 13:50 | disposition home or self-care (01) | DRG 720 ==
LOC: ER 12:13 → EDBD 12:13 → TELE 12:14 → TELE-CENTR 17:22
PROVIDERS: ADMIT Internal Medicine; ATTEND Internal Medicine
PROC: 5A09357 Assistance with Respiratory Ventilation, Less than 24 Consecutive Hours, Continuous Positive Airway Pressure (ICD-10-PCS; principal; 2017-10-14)
PROC: 5A09357 Assistance with Respiratory Ventilation, Less than 24 Consecutive Hours, Continuous Positive Airway Pressure (ICD-10-PCS; 2017-10-15)
PROC: 5A09357 Assistance with Respiratory Ventilation, Less than 24 Consecutive Hours, Continuous Positive Airway Pressure (ICD-10-PCS; 2017-10-16)
DX: A41.9 Sepsis, unspecified organism (principal); E11.40 Type 2 diabetes mellitus with diabetic neuropathy, unspecified; I67.2 Cerebral atherosclerosis; E87.1 Hypo-osmolality and hyponatremia; N39.0 Urinary tract infection, site not specified; E44.1 Mild protein-calorie malnutrition; E78.5 Hyperlipidemia, unspecified; G25.81 Restless legs syndrome; G47.00 Insomnia, unspecified; G89.21 Chronic pain due to trauma; M79.1 Myalgia; N40.0 Benign prostatic hyperplasia without lower urinary tract symptoms; I10 Essential (primary) hypertension; I25.10 Atherosclerotic heart disease of native coronary artery without angina pectoris; G96.8 Other specified disorders of central nervous system; Z88.1 Allergy status to other antibiotic agents; Z83.3 Family history of diabetes mellitus; Z80.3 Family history of malignant neoplasm of breast; Z82.49 Family history of ischemic heart disease and other diseases of the circulatory system; Z68.32 Body mass index [BMI] 32.0-32.9, adult; Z87.891 Personal history of nicotine dependence; I69.398 Other sequelae of cerebral infarction; Z79.899 Other long term (current) drug therapy; R55 Syncope and collapse
CPT/HCPCS: 36415; 70450; 71045; 76775; 80053; 80307; 81001; 82728; 82962; 83036; 83540; 83550; 83605; 83735; 84443; 84484; 85025; 85610; 85730; 87040; 87081; 87086; 93005; 93306; 93886; 94660; 94761; 95819; 96361; 96374; 96375; 97110; 97163; J1815; J2270; J2405; J3490

== ENCOUNTER 2020-04-06 21:08 | Emergency (ER) | payer MEDICAID ==
[~2020-04-06] VITALS: Ht 182.9 cm; Wt 90.7 kg
[~2020-04-06 21:08] MED LIST changes: +CYCL10TA6 PO; -CYCL1TAB18 PO
[2020-04-06] MEDS ORDERED: SODIUM CHLORIDE 0.9% 1,000 ML IVB ONE (22:00)
[2020-04-06] MEDS ORDERED: MORPHINE SULFATE 4 MG/ML SYR/VIAL IV ONE (22:00)
[2020-04-06] MEDS ORDERED: ONDANSETRON HCL 4 MG/2 ML VIAL IV ONE (22:00)
[2020-04-06 23:09] LABS: Basophils # (auto) 0.1 10 ^3/uL (0-0.2); Basophils % (auto) 0.5 % (0.0-2.0); Eosinophils # (auto) 0 10 ^3/uL (0-0.8); Eosinophils % (auto) 0.3 % (0.0-7.0); Hemoglobin 15.5 g/dL (13.5-17.5); Lymphocytes # (auto) 1.1 10 ^3/uL (0.4-5.4); Lymphocytes % (auto) 7.1 % (10.0-50.0); Mean Corpuscular Hemoglobin 30.7 pg (28.0-32.0); Mean Corpuscular Hgb Conc. 33.1 g/dL (32.0-36.0); Mean Corpuscular Volume 92.8 fL (80.0-100.0); Monocytes # (auto) 1.4 10 ^3/uL (0-1.3); Monocytes % (auto) 9.1 % (0.0-12.0); Neutrophils # (auto) 12.4 10 ^3/uL (1.6-8.6); Platelet Count (auto) 204 10^3/uL (140-450); Red Blood Cells 5.06 10^6/uL (4.5-5.90); Red Cell Distribution Width 14.1 % (11.8-14.3); White Blood Cell 14.9 10^3/uL (4.4-10.8)
[2020-04-06 23:24] LABS: INR 1.04 (0.9-1.15); Partial Thromboplastin Time 26.5 sec (23.0-31.2)
[2020-04-06 23:27] LABS: Albumin 4.1 g/dL (3.4-5.0); BUN/Creatinine Ratio 14.6; Calcium 8.8 mg/dL (8.5-10.1); Magnesium 1.8 mg/dL (1.6-2.6); Potassium 4.3 mmol/L (3.5-5.1)
[2020-04-06 23:37] LABS: Bilirubin, Total 1.1 mg/dL (0.2-1.0); Total Protein 7.9 g/dL (6.4-8.2)
[2020-04-07] MEDS ORDERED: ONDANSETRON HCL 4 MG/2 ML VIAL IV ONE (01:00)
[2020-04-07] MEDS ORDERED: CIPROFLOXACIN 400MG/200ML 200 ML IV ONE (01:00)
[2020-04-07] MEDS ORDERED: HYDROmorphone HCL 2 MG/ML VL IV ONE ×2 (01:00→03:30)
[2020-04-07] MEDS ORDERED: SODIUM CHLORIDE 0.9% 1,000 ML IV ONE (01:00)
[2020-04-07] MEDS ORDERED: metroNIDAZOLE 500MG/100ML 100 ML IV ONE (01:00)
[2020-04-07 03:55] VITALS: BP 114/67
== END 2020-04-07 04:27 | disposition home or self-care (01) ==
LOC: EDBD 21:08 → ER 21:12
DX: K29.70 Gastritis, unspecified, without bleeding (principal); G89.4 Chronic pain syndrome; E11.9 Type 2 diabetes mellitus without complications; E78.5 Hyperlipidemia, unspecified; I10 Essential (primary) hypertension; Z86.73 Personal history of transient ischemic attack (TIA), and cerebral infarction without residual deficits; Z88.1 Allergy status to other antibiotic agents
CPT/HCPCS: 36415; 74176; 76705; 80053; 82150; 83605; 83690; 83735; 84484; 85025; 85610; 85730; 87040; 93005; 96361; 96365; 96367; 96375; 96376; 99285; J0744; J1170; J2270; J2405; J3490; J7030

== ENCOUNTER 2021-08-12 08:32 | Emergency (ER) | payer MEDICAID ==
[~2021-08-12] VITALS: Ht 182.9 cm; Wt 108.9 kg
[~2021-08-12 08:32] MED LIST changes: +CYCL-839 PO; -CYCL10TA6 PO
[2021-08-12 09:35] LABS: Basophils # (auto) 0.1 10 ^3/uL (0-0.2); Basophils % (auto) 0.9 % (0.0-2.0); Eosinophils # (auto) 0 10 ^3/uL (0-0.8); Eosinophils % (auto) 0.6 % (0.0-7.0); Hematocrit 45.2 % (41.0-53.0); Hemoglobin 15.4 g/dL (13.5-17.5); Lymphocytes # (auto) 1.1 10 ^3/uL (0.4-5.4); Lymphocytes % (auto) 15.1 % (10.0-50.0); Mean Corpuscular Hemoglobin 31.3 pg (28.0-32.0); Mean Corpuscular Volume 92.1 fL (80.0-100.0); Monocytes # (auto) 0.6 10 ^3/uL (0-1.3); Monocytes % (auto) 8.3 % (0.0-12.0); Neutrophils # (auto) 5.4 10 ^3/uL (1.6-8.6); Neutrophils % (auto) 75.1 % (37.0-80.0); Nucleated Red Blood Cells % 0.2 %; Red Blood Cells 4.91 10^6/uL (4.5-5.90); Red Cell Distribution Width 13.9 % (11.8-14.3); White Blood Cell 7.2 10^3/uL (4.4-10.8)
[2021-08-12] MEDS ORDERED: ALBUTEROL SULF 2.5 MG/0.5ML(0.5%) NEB SOLN NEB ONE (09:45)
[2021-08-12] MEDS ORDERED: IPRATROPIUM BROM 0.5 MG/2.5ML INH SOL NEB ONE (09:45)
[2021-08-12 09:58] LABS: Albumin 3.8 g/dL (3.4-5.0); Calcium 9.2 mg/dL (8.5-10.1); Potassium 4.2 mmol/L (3.5-5.1)
[2021-08-12 10:03] LABS: BUN/Creatinine Ratio 13.2; Bilirubin, Total 0.9 mg/dL (0.2-1.0); Total Protein 7.6 g/dL (6.4-8.2)
[2021-08-12 10:18] LABS: Urine Bacteria NONE SEEN /hpf (None Seen); Urine Blood Negative /uL (Negative); Urine WBC <1 /hpf (0 - 3)
[2021-08-12 10:19] LABS: Magnesium 1.6 mg/dL (1.6-2.6)
[2021-08-12] MEDS ORDERED: DexAMETHasone 4 MG TAB PO ONE (12:45)
[2021-08-12 12:46] VITALS: BP 118/69
== END 2021-08-12 13:10 | disposition home or self-care (01) ==
LOC: ER 08:32
DX: J45.901 Unspecified asthma with (acute) exacerbation (principal); E11.9 Type 2 diabetes mellitus without complications; E78.5 Hyperlipidemia, unspecified; I10 Essential (primary) hypertension; Z86.73 Personal history of transient ischemic attack (TIA), and cerebral infarction without residual deficits; Z88.1 Allergy status to other antibiotic agents
CPT/HCPCS: 36415; 71045; 80053; 81001; 83735; 84484; 85025; 93005; 94640; 99285; J7644; J8540

== ENCOUNTER → 2021-10-16 | Outpatient (CLI) | payer MEDICAID ==
[~2021-10-16] VITALS: Ht 182.9 cm; Wt 112.0 kg
[~2021-10-16] MED LIST changes: +ADENOSINE 90 MG/30 ML INJ IV ONE; +ADENOSINE 94 MG in GIVE UN-DILUTED 0 ML IV ONE
== END | disposition home or self-care (01) ==
LOC: Rad HDHVI 08:07
PROVIDERS: ATTEND Internal Medicine Cardiovascular Disease
DX: I20.0 Unstable angina (principal); R07.89 Other chest pain; R06.02 Shortness of breath; N18.30 Chronic kidney disease, stage 3 unspecified; R94.31 Abnormal electrocardiogram [ECG] [EKG]; E11.65 Type 2 diabetes mellitus with hyperglycemia
CPT/HCPCS: 78452; 93005; 96374; 96375; A9500; J0153

== ENCOUNTER → 2021-10-18 | Outpatient (CLI) | payer MEDICAID ==
[~2021-10-18] MED LIST changes: -ADENOSINE 90 MG/30 ML INJ IV ONE; -ADENOSINE 94 MG in GIVE UN-DILUTED 0 ML IV ONE
== END | disposition home or self-care (01) ==
LOC: Rad HDHVI 15:55
PROVIDERS: ATTEND Internal Medicine Cardiovascular Disease
DX: I51.7 Cardiomegaly (principal); I71.2 Thoracic aortic aneurysm, without rupture; R07.89 Other chest pain; R06.02 Shortness of breath
CPT/HCPCS: 93306

== ENCOUNTER 2022-10-13 09:44 | Emergency (ER) | payer MEDICAID ==
[~2022-10-13] VITALS: Ht 182.9 cm; Wt 112.0 kg
[2022-10-13 10:34] VITALS: BP 134/92
[2022-10-13] MEDS ORDERED: COR10OTS OT (12:00)
== END 2022-10-13 12:04 | disposition home or self-care (01) ==
LOC: ER 09:44
DX: S00.452A Superficial foreign body of left ear, initial encounter (principal); J45.909 Unspecified asthma, uncomplicated; I10 Essential (primary) hypertension; E11.9 Type 2 diabetes mellitus without complications; E78.5 Hyperlipidemia, unspecified; Z86.73 Personal history of transient ischemic attack (TIA), and cerebral infarction without residual deficits; Z79.899 Other long term (current) drug therapy; Z88.1 Allergy status to other antibiotic agents; W45.8XXA Other foreign body or object entering through skin, initial encounter; Y93.89 Activity, other specified; Y92.89 Other specified places as the place of occurrence of the external cause; Y99.8 Other external cause status
CPT/HCPCS: 69200

== ENCOUNTER 2023-03-02 15:35 | Emergency (ER) | payer MEDICAID ==
[~2023-03-02] VITALS: Ht 182.9 cm; Wt 111.0 kg
[~2023-03-02 15:35] MED LIST changes: +COR10OTS OT
[2023-03-02 18:43] LABS: Eosinophils # (auto) 0.1 10 ^3/uL (0-0.8); Mean Corpuscular Hgb Conc. 33.6 g/dL (32.0-36.0)
[2023-03-02 18:48] LABS: Basophils # (auto) 0.1 10 ^3/uL (0-0.2); Basophils % (auto) 0.5 % (0.0-2.0); Eosinophils % (auto) 0.9 % (0.0-7.0); Hematocrit 48.9 % (41.0-53.0); Hemoglobin 16.4 g/dL (13.5-17.5); Lymphocytes # (auto) 1.8 10 ^3/uL (0.4-5.4); Lymphocytes % (auto) 11.5 % (10.0-50.0); Mean Corpuscular Hemoglobin 30.7 pg (28.0-32.0); Mean Corpuscular Volume 91.4 fL (80.0-100.0); Monocytes # (auto) 1.5 10 ^3/uL (0-1.3); Monocytes % (auto) 9.7 % (0.0-12.0); Neutrophils # (auto) 11.9 10 ^3/uL (1.6-8.6); Neutrophils % (auto) 77.4 % (37.0-80.0); Nucleated Red Blood Cells % 0.1 %; Red Blood Cells 5.35 10^6/uL (4.5-5.90); White Blood Cell 15.4 10^3/uL (4.4-10.8)
[2023-03-02 20:21] LABS: Alanine Aminotransferase 30 U/L (7-40); Albumin 4.7 g/dL (3.2-4.8); Alkaline Phosphatase 75 U/L (46-116); Anion Gap 10 (5-15); Aspartate Aminotransferase 13 U/L (13-40); BUN/Creatinine Ratio 7.3 (10.0-20.0); Blood Urea Nitrogen 6 mg/dL (9-23); Calcium 9.7 mg/dL (8.5-10.1); Carbon Dioxide 25 mmol/L (20-30); Chloride 100 mmol/L (98-107); Glucose 198 mg/dL (74-106); Potassium 3.7 mmol/L (3.5-5.1); Sodium 135 mmol/L (136-145)
[2023-03-02 20:22] LABS: Total Protein 8.5 g/dL (5.7-8.2)
[2023-03-02] MEDS ORDERED: CEFTRIAXONE SODIUM 2 GM in D5W 5% 100 ML IV ONE (21:00)
[2023-03-02] MEDS ORDERED: SODIUM CHLORIDE 0.9% 1,000 ML IV ONE (21:00)
[2023-03-02] MEDS ORDERED: cefTRIAXone 1GM/50ML D5W 50 ML IV ONE ×4 (21:30→23:00)
[2023-03-02] MEDS ORDERED: MORPHINE SULFATE 4 MG/ML SYR/VIAL IV ONE (22:15)
[2023-03-02] MEDS ORDERED: BACDST PO (22:18)
[2023-03-02] MEDS ORDERED: CEPH500C PO (22:18)
[2023-03-02] MEDS ORDERED: MORPHINE SULFATE 4 MG/ML SYR/VIAL IM ONE (22:30)
[2023-03-02] MEDS ORDERED: ONDANSETRON HCL 4 MG/2 ML VIAL IM ONE (22:30)
[2023-03-02 23:02] VITALS: BP 164/90; PULSE 70; RESP 17; TEMP 98.1; O2SAT 95
== END 2023-03-02 23:05 | disposition home or self-care (01) ==
LOC: ER 15:35
DX: K04.7 Periapical abscess without sinus (principal); J32.9 Chronic sinusitis, unspecified; L03.211 Cellulitis of face; K04.8 Radicular cyst; I10 Essential (primary) hypertension; E11.9 Type 2 diabetes mellitus without complications; E78.5 Hyperlipidemia, unspecified; J45.909 Unspecified asthma, uncomplicated; Z86.73 Personal history of transient ischemic attack (TIA), and cerebral infarction without residual deficits; Z79.899 Other long term (current) drug therapy; Z88.1 Allergy status to other antibiotic agents
CPT/HCPCS: 36415; 70487; 80053; 85025; 96361; 96372; 96374; 99285; J0696; J2270; J2405; J7060; Q9967

== ENCOUNTER 2024-08-15 07:12 | Inpatient (IN) | payer MEDICAID ==
[2024-08-15] VITALS (59 sets, daily range): BP systolic 90–122; BP diastolic 35–80; PULSE 47–72; RESP 11–18; TEMP 97.8–98.5; O2SAT 91–100
[~2024-08-15] VITALS: Ht 182.9 cm; Wt 101.8 kg
[~2024-08-15 07:12] MED LIST changes: +BACDST PO; +CEPH500C PO
--- NOTE | 2024-08-15 07:32 | ED.PDOC ---
HPI Comments 64 year old male presents to the ED with chief complaint of chest pain. Patient reports that he has been experiencing left sided chest heaviness with associated SOB, dizziness, and palpitations for the past 2 hours. Patient relays that he had stopped drinking and stopped smoking weed 3 days ago. Patient states he is currently on Eliquis due to A-Fib. Patient denies any numbness, weakness, N/V, headache, or cough. Chief Complaint: Chest Pain Time Seen by MD: 07:29 Primary Care Provider: NANCY Reviewed Notes: Nurses Notes, Medications, Allergies Allergies: Coded Allergies: Vancomycin (Verified Allergy, Severe, 07/19/17) Home Meds Active Scripts Cephalexin Monohydrate (Cephalexin) 500 Mg Cap, 1 CAP PO QID for 10 Days, #40 CAP Prov:ROJAS,NORALDA Q SOCIAL SERVICES SPECIALIST 03/02/23 Sulfamethoxazole W/Trimethopri (Bactrim Ds Tablet) 1 Tab Tb, 1 TAB PO BID for 10 Days, #20 TAB Prov:ROJAS,NORALDA Q SOCIAL SERVICES SPECIALIST 03/02/23 Fboupsyu-Zgaimusvp-Ki (Otic) (Cortisporin Otic Soln) [address], 2 DROP OT BID for 3 Days, #3.5 DROP Prov:DOMENICO CAIN PAC 10/13/22 Reported Medications Morphine Sulfate (Morphine Sulfate Cr) 15 Mg Tab, 20 MG PO BID, #60 TAB 07/21/17 Lovastatin (Lovastatin) 10 Mg Tab, 10 MG PO HSMR1, TAB 07/21/17 Pregabalin (Lyrica) 100 Mg Cap, 1 CAP PO BID, #60 CAP 2 Refills 07/20/17 Lovastatin (Lovastatin) 10 Mg Tab, 10 MG PO HS, TAB 11/09/14 Cyclobenzaprine Hcl (Cyclobenzaprine Hcl) 10 Mg Tab, 10 MG PO BID, TAB 11/09/14 Hydrocodone-Acetaminophen (Ector 10/325MG) 1 Tab Tb, 1 TAB PO QID PRN for SEVERE PAIN, #90 TAB 11/09/14 Lisinopril (ZESTRIL TABLET) 5 Mg Tb, 1 TAB PO DAILY, #30 TAB 5 Refills 11/09/14 Metformin Hydrochloride (Metformin Hcl) 1,000 Mg Tab, BID 09/12/11 Information Source: Patient Mode of Arrival: Ambulatory Severity: Moderate Timing: Hours Duration: Since onset Prehospital treatment: None Location: Chest (L) Radiation: No Radiation Quality: Heavy Onset: At Rest Cardiac Risk Factors: Hyperlipidemia, HTN, Diabetes PE Risk Factors: None Associated Signs and Symptoms: SOB, Palpitations Past Medical History PAST MEDICAL HISTORY: AFIB, Asthma, CVA, DM, High Lipids, HTN, TIA Surgical History (Other): Orchiotomy, Left elbow surgery, Spinal cord stimulator x2 Family History Family History: No family hx of DM, No family hx of HTN Social History Smoker: Non-Smoker Alcohol: Denies ETOH Use Drugs: Denies Drug Use Lives In: Home Constitutional: denies: chills, diaphoresis, fatigue, fever, malaise, sweats, weakness, others EENTM: denies: blurred vision, double vision, ear bleeding, ear discharge, ear drainage, ear pain, ear ringing, eye pain, eye redness, hearing loss, mouth pain, mouth swelling, nasal discharge, nose bleeding, nose congestion, nose pain, photophobia, tearing, throat pain, throat swelling, voice changes, others Respiratory: reports: shortness of breath; denies: cough, hemoptysis, orthopnea, SOB at rest, SOB with excertion, stridor, wheezing, others Cardiovascular: reports: chest pain, palpitations; denies: dizzy spells, di aphoresis, Dyspnea on exertion, edema, irregular heart beat, left arm pain, lightheadedness, PND, syncope, others Gastrointestinal: denies: abdomen distended, abdominal pain, blood streaked bowels, constipated, diarrhea, dysphagia, difficulty swallowing, hematemesis, melena, nausea, poor appetite, poor fluid intake, rectal bleeding, rectal pain, vomiting, others Genitourinary: denies: burning, dysuria, flank pain, frequency, hematuria, incontinence, penile discharge, penile sore, pain, testicle pain, testicle swelling, urgency, others Neurological: reports: dizziness; denies: fainting, headache, left sided numbness, left sided weakness, numbness, paresthesia, pre-existing deficit, right sided numbness, right sided weakness, seizure, speech problems, tingling, tremors, weakness, others Musculoskeletal: denies: back pain, gout, joint pain, joint swelling, muscle pain, muscle stiffness, neck pain, others Integumetry: denies: bruises, change in color, change in hair/nails, dryness, laceration, lesions, lumps, rash, wounds, others Allergic/Immunocompromised: denies: Difficulty Healing, Frequent Infections, Hives, Itching, others Hematologic/Lymphatic: denies: anemia, blood clots, easy bleeding, easy bruising, swollen glands, others Endocrine: denies: excessive hunger, excessive sweating, excessive thirst, excessive urination, flushing, intolerance to cold, intolerance to heat, unexplained weight gain, unexplained weight loss, others Psychiatric: denies: anxiety, bipolar disorder, depression, hopeless, panic disorder, schizophrenia, sleepless, suicidal, others All Other Systems: Reviewed and Negative Physical Exam General Appearance: Moderate Distress, Normal HEENT: Normal ENT Inspection, PERRL/EOMI, Pharynx Normal, TMs Normal Neck: Full Range of Motion, Non-Tender, Normal, Normal Inspection Respiratory: Chest Non-Tender, Lungs Clear, No Accessory Muscle Use, No Respiratory Distress, Normal Breath Sounds Cardiovascular: No Edema, No JVD, No Murmur, No Gallop, Normal Peripheral Pulses, Regular Rate/Rhythm Breast Exam: Deferred Gastrointestinal: No Organomegaly, Non Tender, No Pulsatile Mass, Normal Bowel Sounds, Soft Genitalia: Deferred Pelvic: Deferred Rectal: Deferred Extremities: No calf tenderness, Normal capillary refill, Normal inspection, Normal range of motion, Non-tender, No pedal edema Musculoskeletal : Apperance: Normal Neurologic: Alert, department helper II-XII nml as Tested, No Motor Deficits, Normal Affect, Normal Mood, No Sensory Deficits Cerebellar Function: NOT DONE Reflexes: NOT DONE Skin: Dry, Normal Color, Warm Peripheral Pulses: 3+ Radial (R), 3+ Radial (L) Lymphatic: No Adenopathy Was a procedure done? Was a procedure done?: No CP Differential Dx Differential Diagnosis: A-fib, A-Flutter, Angina, Anxiety / Panic Attack, Atrial Dysrhythmia, Electrolyte Disorder X-Ray, Labs, Meds, VS Vital Signs Date Time Temp Pulse Resp B/P (MAP) Pulse Ox O2 Delivery O2 Flow Rate FiO2 08/15/24 07:23 97.6 57 16 141/72 (95) 97 97.6 Lab Test 08/15/24 07:25 Range/Units White Blood Count Pending Red Blood Count Pending Hemoglobin Pending Hematocrit Pending Mean Corpuscular Volume Pending Mean Corpuscular Hemoglobin Pending Mean Corpuscular Hemoglobin Concent Pending Red Cell Distribution Width Pending Platelet Count Pending Mean Platelet Volume Pending Neutrophils (%) (Auto) Pending Lymphocytes (%) (Auto) Pending Monocytes (%) (Auto) Pending Basophils (%) (Auto) Pending Neutrophils # (Auto) Pending Lymphocytes # (Auto) Pending Monocytes # (Auto) Pending Sodium Level Pending Potassium Level Pending Chloride Level Pending Carbon Dioxide Level Pending Anion Gap Pending Blood Urea Nitrogen Pending Creatinine Pending Glomerular Filtration Rate Calc Pending BUN/Creatinine Ratio Pending Serum Glucose Pending Calcium Level Pending Troponin I High Sensitivity Pending Plasma/Serum Blood Alcohol Pending Patient alert. Complaining chest discomfort shortness a breath dizziness. Vitals stable. Answering questions. EKG reviewed does not show any acute changes. Possibly will need stress test. Stopped drinking three days ago. Reviewed his history. Explained to the patient. Continue cardiac monitoring. Time of 1ST Reevaluation: 08:29 Reevaluation 1ST: Unchanged Patient Education/Counseling: Diagnosis, Treatment Family Education/Counseling: No Family Present Additional Information Previous visit documents reviewed: 03/02/23 dental abscess The following tests were ordered, and results were reviewed by me: CBC, BMP, Troponin, BNP, UA, Chest XR, EKG Additional Information was gathered from interviewing the following independent historians: None I reviewed and agreed with the following test results read by other providers: Chest XR I discussed treatment and results with medical personnel and: Patient Comprehensive systems review obtained and negative except for what is stated in the HPI. Departure 1 Departure Time of Disposition: 07:35 Impression: Primary Impression: Uncontrolled diabetes mellitus Qualified Codes: E13.65 - Other specified diabetes mellitus with hyperglycemia Additional Impression: Chest pain of unknown etiology Disposition: 09 ADMITTED INPATIENT Admit to: Med Surg Condition: Guarded Critical Care Note Critical Care Time?: Yes (45 min-critical care time only) Critical care comment: Chest pain monitor Stability Stability form required: No Heart Score Heart Score: Heart Score Response (Comments) Value History Highly Suspicious 2 EKG Normal 0 Age 45-64 1 Risk Factors >3 or Hx ASHD 2 Troponin Normal limit 0 Total 5 I personally scribed for LEENA TAYLOR MD ([email or web address]) on 08/15/24 at 07:32. Electronically submitted by Thom Peña ([email or web address]). LEENA TAYLOR MD Aug 15, 2024 07:32
[2024-08-15] MEDS: ASPirin 325 MG TAB PO ONE (07:46)
[2024-08-15 07:49] LABS: Basophils # (auto) 0.1 10 ^3/uL (0-0.2); Basophils % (auto) 0.4 % (0.0-2.0); Eosinophils # (auto) 0.1 10 ^3/uL (0-0.8); Eosinophils % (auto) 0.6 % (0.0-7.0); Hematocrit 48.4 % (41.0-53.0); Hemoglobin 16.7 g/dL (13.5-17.5); Lymphocytes # (auto) 1.2 10 ^3/uL (0.4-5.4); Lymphocytes % (auto) 9.5 % (10.0-50.0); Mean Corpuscular Hemoglobin 31.6 pg (28.0-32.0); Mean Corpuscular Hgb Conc. 34.6 g/dL (32.0-36.0); Mean Corpuscular Volume 91.3 fL (80.0-100.0); Monocytes # (auto) 0.9 10 ^3/uL (0-1.3); Monocytes % (auto) 6.8 % (0.0-12.0); Neutrophils # (auto) 10.8 10 ^3/uL (1.6-8.6); Neutrophils % (auto) 82.7 % (37.0-80.0); Platelet Count (auto) 183 10^3/uL (140-450); Red Cell Distribution Width 13.7 % (11.8-14.3); White Blood Cell 13.1 10^3/uL (4.4-10.8)
--- NOTE | 2024-08-15 07:55 | DVH ---
EXAM: XY CHEST PORTABLE HISTORY: sob COMPARISON: CHEST PORTABLE on DOS: 08/12/21, CXRP on DOS: 08/12/21 TECHNIQUE: Portable AP view of the chest was performed. FINDINGS: No pneumothorax or pulmonary edema. There is increased central peribronchial thickening. T here is new right basilar mild infiltrate. The heart is not enlarged. Spinal cord stimulator is re-id entified. IMPRESSION: 1. Mild right basilar atelectasis or pneumonia. 2. Mild reactive airways disease.
[2024-08-15 08:10] LABS: Chloride 99 mmol/L (98-107); Potassium 4.5 mmol/L (3.5-5.1); Sodium 138 mmol/L (136-145)
[2024-08-15 08:11] LABS: Anion Gap 11 (5-15); Carbon Dioxide 28 mmol/L (20-31)
[2024-08-15 08:12] LABS: Calcium 10.5 mg/dL (8.7-10.4)
[2024-08-15 08:16] LABS: BUN/Creatinine Ratio 13.5 (10.0-20.0); Blood Urea Nitrogen 12 mg/dL (9-23)
[2024-08-15 08:20] LABS: Blood Alcohol < 3.0 mg/dL (<10); Glucose 251 mg/dL (74-106)
--- NOTE | 2024-08-15 08:24 | ECG ---
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
[2024-08-15] MEDS: DOPamine 1600MCG/ML D5W 250 ML IV ONE (08:37)
--- NOTE | 2024-08-15 08:44 | DVHHP2 ---
History of Present Illness Reason for Visit: Chest pain History of Present Illness 64-year-old male past medical history AFib Eliquis asthma CVA diabetes hyperlipidemia hypertension TIA surgical history orchectomy left elbow surgery spinal cord surgery with the stimulator x2 chief complaint patient states earlier this morning he woke up at 2:00 a.m. with chest pain no shortness with the breath he took the inhaler but he thought he would get better with a heaviness on the chest continued. Nothing makes it better nothing makes it worse. He states he takes his meds as prescribed. When patient came to the ER he was found to be bradycardic and dopamine drip was started by the ER team aspirin was given white count was 13.1 glucose was 251 calcium was 10.5 troponin was negative alcohol level was negative chest x-ray shows pneumonia in the right lung did review the echo from 2021 the EF was 60% at that time. 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 We will consult. With these findings we will admit for further workup and care and sent to ICU Past Medical History See HPI above Past Surgical History See HPI above Family History Reviewed, non-contributory to the management of this case. Past Social History The patient lives at home, denies smoking, alcohol or illicit drugs abuse. Review of Systems Constitutional: No: Fever, Chills, Sweats, Weakness, Malaise, Other Eyes: No: Pain, Vision change, Conjunctivae inflammation, Eyelid inflammation, Other, Redness ENT: No: Ear pain, Ear discharge, Nose pain, Nose discharge, Nose congestion, Mouth pain, Mouth swelling, Throat pain, Throat swelling, Other Respiratory: Shortness of breath, SOB with excertion; No: Cough, Dry, Wheezing, Hemoptysis, Pleuritic Pain, Sputum, Wheezing, Other Cardiovascular: Chest Pain; No: Palpitations, Orthopnea, Paroxysmal Noc. Dyspnea, Edema, Lt Headedness, Other Gastrointestinal: No: Nausea, Vomiting, Abdominal Pain, Diarrhea, Constipation, Melena, Hematochezia, Other Genitourinary: No Dysuria, No Frequency, No Incontinence, No Hematuria, No Retention, No Other Musculoskeletal: No: other, neck pain, shoulder pain, arm pain, back pain, hand pain, leg pain, foot pain Skin: No: Rash, Lesions, Jaundice, Bruising, Other Neurological: No: Weakness, Numbness, Incoordination, Change in speech, Confusion, Seizures, Other Allergies: Coded Allergies: Vancomycin (Verified Allergy, Severe, 07/19/17) Exam Vital Signs Vital Signs Date Time Temp Pulse Resp B/P (MAP) Pulse Ox O2 Delivery O2 Flow Rate FiO2 08/15/24 08:37 103/53 08/15/24 08:23 47 08/15/24 07:51 98.0 12 95 98.0 08/15/24 07:49 Room Air* 0 21 General Appearance: Alert, Oriented X3, Cooperative, No acute distress HEENT: Atraumatic, PERRLA, EOMI, Mucous membr. moist/pink Respiratory: Other (Coarse rales heard) Cardiovascular: Regular rate, Normal S1, Normal S2, No murmurs Abdominal: Normal bowel sounds, Soft, No tenderness, No hepatospenomegaly, No masses Extremities: No clubbing, No cyanosis, No edema, Normal pulses, No tenderness/swelling Skin: No rashes, No breakdown, No significant lesion Neuro: Normal speech, Strength at 5/5 X4 ext, Normal tone, Sensation intact, C ranial nerves 3-12 NL Psych/Mental Status: Mental status NL, Mood NL Labs/Xrays Chest x-ray shows right lung pneumonia I reviewed labs, imaging CT scan abdomen pelvis, EKG and all diagnostic studies on this patient from ED records and the medical chart Labs Test 08/15/24 08:21 08/15/24 07:25 08/15/24 07:23 Range/Units White Blood Count 13.1 H 4.4-10.8 10^3/uL Red Blood Count 5.30 4.5-5.90 10^6/uL Hemoglobin 16.7 13.5-17.5 g/dL Hematocrit 48.4 41.0-53.0 % Mean Corpuscular Volume 91.3 80.0-100.0 fL Mean Corpuscular Hemoglobin 31.6 28.0-32.0 pg Mean Corpuscular Hemoglobin Concent 34.6 32.0-36.0 g/dL Red Cell Distribution Width 13.7 11.8-14.3 % Platelet Count 183 140-450 10^3/uL Mean Platelet Volume 10.6 6.9-10.8 fL Neutrophils (%) (Auto) 82.7 H 37.0-80.0 % Lymphocytes (%) (Auto) 9.5 L 10.0-50.0 % Monocytes (%) (Auto) 6.8 0.0-12.0 % Eosinophils (%) (Auto) 0.6 0.0-7.0 % Basophils (%) (Auto) 0.4 0.0-2.0 % Neutrophils # (Auto) 10.8 H 1.6-8.6 10 ^3/uL Lymphocytes # (Auto) 1.2 0.4-5.4 10 ^3/uL Monocytes # (Auto) 0.9 0-1.3 10 ^3/uL Eosinophils # (Auto) 0.1 0-0.8 10 ^3/uL Basophils # (Auto) 0.1 0-0.2 10 ^3/uL Nucleated Red Blood Cells 0.0 % Sodium Level 138 136-145 mmol/L Potassium Level 4.5 3.5-5.1 mmol/L Chloride Level 99 98-107 mmol/L Carbon Dioxide Level 28 20-31 mmol/L Anion Gap 11 5-15 Blood Urea Nitrogen 12 9-23 mg/dL Creatinine 0.89 0.700-1.30 mg/dL Glomerular Filtration Rate Calc 96 >90 mL/min BUN/Creatinine Ratio 13.5 10.0-20.0 Serum Glucose 251 H 74-106 mg/dL Calcium Level 10.5 H 8.7-10.4 mg/dL Plasma/Serum Blood Alcohol < 3.0 <10 mg/dL POC Glucose 235 H 70-106 mg/dl Assessment/Plan Assessment/Plan acute chest pain r/o acs trop x3 negative ekg no stemi ordered Cards consult pending eval and recs ordered asa atorvastatin ordered Echocardiogram follow-up results last echo 2021 ef 60% ordered morphine as needed for pain, ordered nitro prn acute right lung bacterial community acquired pna found on chest xray ordered ceftriaxone and azithromax o2 to keep sats >92% acute leukocytosis likely from pna cont antibiotics ceftriaxone and azithromax acute bradycardia symptomatic ordered tsh, ordered mag and phos fu results cont dopamine for now chronic problems afib cont eliquis asthma can provide duoneb prn dm ISS moderate can order hemoglobin a1c by rounding team htn uncontrolled cva tia fen/ppx diet hl scd eliquis no gi ppx since no hx of gerds or gi bleed plan admit to icu since on dopamine drip will consult cards Plan discussed with: Patient Date of Service: Aug 15, 2024 Billing Provider: RONIT FARLEY DNP Common Visit Codes: [id number] INP/OBS CARE (HIGH), [id number] CARE 30- 74 MIN (Total critical care time: Approximately 45 minutes This critical care time included obtaining a history; examining the patient; pulse oximetry; ordering and review of studies; arranging urgent treatment with development of a management plan; evaluation of patient's response to treatment; frequent reassessment; and, discussions with other providers.) RONIT FARLEY DNP Aug 15, 2024 08:44
[2024-08-15 09:04] LABS: Amphetamine Screen, Urine Neg (NEGATIVE); Barbiturate Scree,Urine Neg (NEGATIVE); Benzodiazephine Screen, Urine Neg (NEGATIVE); Cannabinoid Screen, Urine Pos (NEGATIVE); Cocaine Screen, Urine Neg (NEGATIVE); Opiate Scree,Urine Pos (NEGATIVE); Phencyclidine Screen, Urine Neg (NEGATIVE)
[2024-08-15 09:08] LABS: Urine Bacteria None Seen /hpf (None Seen)
[2024-08-15] MEDS ORDERED: NITROGLYCERIN 0.4 MG SL TAB SL PRN (09:15)
[2024-08-15] MEDS ORDERED: MORPHINE SULFATE INJ 2 MG/ml SYRG IV PRN (09:15)
[2024-08-15] MEDS ORDERED: DEXTROSE (50%) 50ML SYRG IV PRN (09:15)
[2024-08-15] MEDS ORDERED: ONDANSETRON HCL 4 MG/2 ML VIAL IV PRN (09:15)
[2024-08-15 09:19] LABS: Urine Blood Negative /uL (Negative); Urine Clarity Clear (Clear); Urine Color Light-Yellow (Yellow); Urine Protein, UAD Negative (Negative); Urine Specific Gravity 1.037 (1.001-1.035); Urine Squamous Epithelial Cell None Seen /hpf (<5); Urine Urobilinogen Normal (Negative); Urine WBC < 1 /HPF (0-3)
[2024-08-15] MEDS: IPRATROPIUM BROM 0.5 MG/2.5ML INH SOL NEB PRN (09:31)
[2024-08-15] MEDS: ALBUTEROL SULF 2.5 MG/0.5ML(0.5%) NEB SOLN NEB PRN (09:32)
[2024-08-15] MEDS ORDERED: MORPHINE SULF 15mg ER tab PO SCH (10:00)
[2024-08-15 10:22] LABS: Magnesium 1.9 mg/dL (1.6-2.6)
[2024-08-15] MEDS: cefTRIAXone 1GM/50ML D5W 50 ML IV ONE (10:40)
[2024-08-15] MEDS: LISINOPRIL 5 MG TAB PO SCH (10:41)
[2024-08-15] MEDS: APIXABAN 5 MG TAB PO SCH (10:42)
[2024-08-15] MEDS: PREGABALIN 25 MG CAP PO SCH (10:42)
[2024-08-15] MEDS: CYCLOBENZAPRINE HCL 10 MG TAB PO SCH (10:42)
[2024-08-15 10:57] LABS: Phosphorus 2.1 mg/dL (2.4-5.1)
[2024-08-15] MEDS: AZITHROMYCIN 500MG/ 250ML 250 ML IV ONE (11:35)
[2024-08-15] MEDS: MORPHINE SULF 30 mg ER tab PO SCH (11:35)
[2024-08-15] MEDS: ACCU-CHEK COMFORT CURVE STRIP VI SCH (11:52)
[2024-08-15] MEDS: InsuLIN REG 1unit/0.01ml Soln (100units/ml) SC SCH ×2 (11:54→22:00)
[2024-08-15] MEDS: SODIUM PHOSPHATES 40 MEQ in D5W 5% 250 ML IV ONE (16:13)
[2024-08-15] MEDS: ATORVASTATIN 20 MG TAB PO SCH (21:26)
[2024-08-15] MEDS: HYDROcodone-ACET 10/325MG TAB PO PRN (21:32)
[2024-08-16] VITALS (66 sets, daily range): BP systolic 92–125; BP diastolic 41–71; PULSE 47–88; RESP 8–20; TEMP 97.5–97.9; O2SAT 86–99
[2024-08-16] MEDS: DOPamine 1600MCG/ML D5W 250 ML IV SCH (01:21)
[2024-08-16 03:56] LABS: Basophils # (auto) 0.1 10 ^3/uL (0-0.2); Eosinophils # (auto) 0.1 10 ^3/uL (0-0.8); Eosinophils % (auto) 1.5 % (0.0-7.0); Hematocrit 45.6 % (41.0-53.0); Hemoglobin 15.6 g/dL (13.5-17.5); Lymphocytes # (auto) 1.9 10 ^3/uL (0.4-5.4); Lymphocytes % (auto) 19.1 % (10.0-50.0); Mean Corpuscular Hemoglobin 31.6 pg (28.0-32.0); Mean Corpuscular Hgb Conc. 34.2 g/dL (32.0-36.0); Mean Corpuscular Volume 92.4 fL (80.0-100.0); Monocytes % (auto) 10.8 % (0.0-12.0); Neutrophils # (auto) 6.6 10 ^3/uL (1.6-8.6); Neutrophils % (auto) 67.6 % (37.0-80.0); Platelet Count (auto) 166 10^3/uL (140-450); Red Blood Cells 4.94 10^6/uL (4.5-5.90); Red Cell Distribution Width 13.7 % (11.8-14.3); White Blood Cell 9.7 10^3/uL (4.4-10.8)
[2024-08-16 04:06] LABS: Alanine Aminotransferase 18 U/L (7-40); Albumin 4.5 g/dL (3.2-4.8); Alkaline Phosphatase 70 U/L (46-116); Anion Gap 9 (5-15); BUN/Creatinine Ratio 17.6 (10.0-20.0); Bilirubin, Total 0.8 mg/dL (0.2-1.0); Blood Urea Nitrogen 13 mg/dL (9-23); Calcium 9.7 mg/dL (8.7-10.4); Carbon Dioxide 25 mmol/L (20-31); Potassium 3.7 mmol/L (3.5-5.1); Sodium 141 mmol/L (136-145); Total Protein 7.5 g/dL (5.7-8.2)
[2024-08-16 04:17] LABS: Aspartate Aminotransferase 11 U/L (13-40); Chloride 107 mmol/L (98-107); Glucose 187 mg/dL (74-106)
--- NOTE | 2024-08-16 09:31 | DVHSR ---
APPROVED REPORT EXAM: LIMITED Two-dimensional and M-mode echocardiogram with Doppler and color Doppler. Blood Pressure: 103/53 mmHg INDICATION Eval for cardiac function and EF RISK FACTORS Height: 6', DIMENSIONS LVDd4.8 (3.8-5.7cm)LA (2D)4.7 (1.9-4.0cm)Aortic Root3.6 (2.0-3.7cm) LVDs3.3 (2.5-4.0cm)LA (MM) (1.9-4.0cm)Aortic Cusp Exc2.0 (1.5-2.0cm) EF (%) 60.0 (55-70%)Rt. Atrium4.5 (1.9-4.0cm)Asc. Aorta cm IVSd1.3 (0.7-1.1cm)RV (D) (1.8-2.4cm) PWd1.5 (0.7-1.1cm) Mitral Valve MitralMitral Stenosis E wave1.00m/sMV Mean GR.mmHg A wave0.90m/sMV Peak GR.mmHg E/A ratio1.12D MVAcm2 Aortic Valve Aortic ValveAortic Stenosis V11.10m/Oanh Mean GR.8mmHg V22.00m/Oanh Peak GR.17mmHg LVOT Diameter2.5 (1.8-2.4cm)Doppler AVA2.70cm2 Pulmonic Valve V21.10m/s Tricuspid Valve TR Velocity2.30m/s [id number] Other Information Quality : Technically LimitedRhythm : Technically limited study due to body habitus. Conclusion Left ventricle: Mild concentric left ventricular hypertrophy was seen. LVEF was 60-65%. There was no gross wall motion abnormality. Right ventricle was normal-sized with normal systolic function. Both atria were mildly dilated. Aortic valve: Aortic valve was trileaflet. Mildly thickened and calcified aortic leaflets were seen. There was no aortic stenosis/insufficiency. There was trace mitral/tricuspid regurgitation. Pulmo nary valve was not well visualized. Right ventricular systolic pressure was assessed around 30 mm Hg. There was no pericardial effusion.
[2024-08-16] MEDS: cefTRIAXone 1GM/50ML D5W 50 ML IV SCH (09:32)
[2024-08-16] MEDS: AZITHROMYCIN 500MG/ 250ML 250 ML IV SCH (09:32)
--- NOTE | 2024-08-16 10:53 | DVHINCON2 ---
Date of service: Aug 16, 2024 History of Present Illness HPI Patient is a 64-year-old gentleman who presented to the hospital with not feeling well. Chart has mentioned chest pain. Patient himself denies any episode of chest pain. He did feel somewhat short of breath and feeling weak. Cardiology is involved for cardiac aspects of care. Patient is known to our practice from outside. Patient has stopped drinking alcohol and using weed around a week before presentation which could have contributed to the clinical picture? He does have history of noncompliance. He has been told that he has paroxysmal atrial fibrillation for which is on Eliquis as outpatient (not found in our evaluation as outpatient yet). Home Meds Active Scripts Cephalexin Monohydrate (Cephalexin) 500 Mg Cap, 1 CAP PO QID for 10 Days, #40 CAP Prov:ROJAS,NORALDA Q HOURLY SHIFT 03/02/23 Sulfamethoxazole W/Trimethopri (Bactrim Ds Tablet) 1 Tab Tb, 1 TAB PO BID for 10 Days, #20 TAB Prov:ROJASNORALDA Q HOURLY SHIFT 03/02/23 Mifobezf-Raqvvrvxa-Zh (Otic) (Cortisporin Otic Soln) [address], 2 DROP OT BID for 3 Days, #3.5 DROP Prov:DOMENICO CAIN PAC 10/13/22 Reported Medications Morphine Sulfate (Morphine Sulfate Cr) 15 Mg Tab, 20 MG PO BID, #60 TAB 07/21/17 Lovastatin (Lovastatin) 10 Mg Tab, 10 MG PO HSMR1, TAB 07/21/17 Pregabalin (Lyrica) 100 Mg Cap, 1 CAP PO BID, #60 CAP 2 Refills 07/20/17 Lovastatin (Lovastatin) 10 Mg Tab, 10 MG PO HS, TAB 11/09/14 Cyclobenzaprine Hcl (Cyclobenzaprine Hcl) 10 Mg Tab, 10 MG PO BID, TAB 11/09/14 Hydrocodone-Acetaminophen ([place] 10/325MG) 1 Tab Tb, 1 TAB PO QID PRN for SEVERE PAIN, #90 TAB 11/09/14 Lisinopril (ZESTRIL TABLET) 5 Mg Tb, 1 TAB PO DAILY, #30 TAB 5 Refills 11/09/14 Metformin Hydrochloride (Metformin Hcl) 1,000 Mg Tab, BID 09/12/11 Past Medical History Others Past medical history includes paroxysmal AFib (as per patient's own old history- not proven in the office yet, on Eliquis as outpatient), short SVTs, hypertension, diabetes mellitus, hyperlipidemia, asthma, diabetic neuropathy, asthma, 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 He has been abusing alcohol and Cannabis up to around a week before presentation. Patient Family History: Cancer G8 MOTHER FH: breast cancer G8 MOTHER Family history: Cardiovascular disease G8 FATHER Family history: Diabetes mellitus G8 MOTHER Family history: Hypertension G8 FATHER Smoker: Positive Alocohol: Moderate Drugs: Marijuana Lives with: With family Review of Systems Constitutional: Malaise, Weakness Ears, Nose, & Throat: No symptom reported Eyes: No symptom reported Pulmonary/Respiratory: Dyspnea Cardiovascular: Palpitations All Other Systems 14 point review of system was performed. Relevant findings as per above and as per HPI. Otherwise negative. H&P Exam Vital Signs Vital Signs Date Time Temp Pulse Resp B/P (MAP) Pulse Ox O2 Delivery O2 Flow Rate FiO2 08/16/24 09:52 61 08/16/24 09:35 124/67 08/16/24 08:00 11 95 Nasal Cannula* 2 28 08/16/24 07:00 98.8 98.8 General Appeara: Well developed Head Exam: Normal inspection Eye Exam: bilateral eye PERRL Pulmonary/Respiratory: Normal inspection, Chest non-tender, Lungs clear Cardiovascular/Chest: Regular rate, Bradycardia, Systolic murmur Peripheral Pulses: 2+ carotid (R), 2+ carotid (L), 2+ femoral (R), 2+ femoral (L), 2+ dorsalis pedis (R), 2+ dorsalis pedis (L), 2+ Radial (R), 2+ Radial (L) Abdominal Exam: Normal bowel sounds, Soft, No hepatospenomegaly Neuro/Mental St: Alert, Oriented Appearance: Appropriate appearance Eye contact/ Speech: Cooperative Labs/Xrays Labs Test 08/16/24 10:26 08/16/24 03:33 08/15/24 17:18 08/15/24 10:47 Range/Units White Blood Count 9.7 # 4.4-10.8 10^3/uL Red Blood Count 4.94 4.5-5.90 10^6/uL Hemoglobin 15.6 13.5-17.5 g/dL Hematocrit 45.6 41.0-53.0 % Mean Corpuscular Volume 92.4 80.0-100.0 fL Mean Corpuscular Hemoglobin 31.6 28.0-32.0 pg Mean Corpuscular Hemoglobin Concent 34.2 32.0-36.0 g/dL Red Cell Distribution Width 13.7 11.8-14.3 % Platelet Count 166 140-450 10^3/uL Mean Platelet Volume 10.4 6.9-10.8 fL Neutrophils (%) (Auto) 67.6 37.0-80.0 % Lymphocytes (%) (Auto) 19.1 10.0-50.0 % Monocytes (%) (Auto) 10.8 0.0-12.0 % Eosinophils (%) (Auto) 1.5 0.0-7.0 % Basophils (%) (Auto) 1.0 0.0-2.0 % Neutrophils # (Auto) 6.6 1.6-8.6 10 ^3/uL Lymphocytes # (Auto) 1.9 0.4-5.4 10 ^3/uL Monocytes # (Auto) 1.0 0-1.3 10 ^3/uL Eosinophils # (Auto) 0.1 0-0.8 10 ^3/uL Basophils # (Auto) 0.1 0-0.2 10 ^3/uL Nucleated Red Blood Cells 0.0 % Sodium Level 141 136-145 mmol/L Potassium Level 3.7 3.5-5.1 mmol/L Chloride Level 107 98-107 mmol/L Carbon Dioxide Level 25 20-31 mmol/L Anion Gap 9 5-15 Blood Urea Nitrogen 13 9-23 mg/dL Creatinine 0.74 0.700-1.30 mg/dL Glomerular Filtration Rate Calc 102 >90 mL/min BUN/Creatinine Ratio 17.6 10.0-20.0 Serum Glucose 187 H 74-106 mg/dL Calcium Level 9.7 8.7-10.4 mg/dL Total Bilirubin 0.8 0.2-1.0 mg/dL Aspartate Amino Transferase (AST) 11 L 13-40 U/L Alanine Aminotransferase (ALT) 18 7-40 U/L Alkaline Phosphatase 70 46-116 U/L Total Protein 7.5 5.7-8.2 g/dL Albumin 4.5 3.2-4.8 g/dL POC Glucose 153 H 70-106 mg/dl Troponin I High Sensitivity 5 </=54 ng/L Test 08/15/24 08:29 08/15/24 07:25 Range/Units Urine Color Light-yellow Yellow Urine Clarity Clear Clear Urine pH 6.0 5.0-9.0 Urine Specific [place] 1.037 H 1.001-1.035 Urine Protein Negative Negative Urine Ketones 2+ H Negative Urine Blood Negative Negative /uL Urine Nitrite Negative Negative Urine Bilirubin Negative Negative Urine Urobilinogen Normal Negative mg/dL Urine Leukocyte Esterase Negative Negative /uL Urine RBC <1 0 - 3 /hpf Urine Microscopic WBC < 1 0-3 /HPF Urine Squamous Epithelial Cells None seen <5 /hpf Urine Bacteria None seen None Seen /hpf Urine Glucose 4+ H Normal mg/dL Urine Opiates Screen Pos NEGATIVE Urine Fentanyl Screen Neg NEGATIVE Urine Barbiturates Screen Neg NEGATIVE Urine Phencyclidine Screen Neg NEGATIVE Urine Amphetamines Screen Neg NEGATIVE Urine Benzodiazepines Screen Neg NEGATIVE Urine Cocaine Screen Neg NEGATIVE Urine Cannabinoids Screen Pos NEGATIVE Phosphorus Level 2.1 L 2.4-5.1 mg/dL Magnesium Level 1.9 1.6-2.6 mg/dL B-Type Natriuretic Peptide 100.81 0-100 pg/mL Thyroid Stimulating Hormone (TSH) 1.93 0.55-4.78 uIU/mL Plasma/Serum Blood Alcohol < 3.0 <10 mg/dL Assessment/Plan Plan Patient is a 64-year-old gentleman who presented to the hospital with not feeling well. Chart has mentioned chest pain. Patient himself denies any episode of chest pain. He did feel somewhat short of breath and feeling weak. Cardiology is involved for cardiac aspects of care. Patient is known to our practice from outside. Patient has stopped drinking alcohol and using weed around a week before presentation which could have contributed to the clinical picture? He does have history of noncompliance. He has been told that he has paroxysmal atrial fibrillation for which is on Eliquis as outpatient (not found in our evaluation as outpatient yet). Not in acute distress. No JVD. Mucosa is pink and wet. No carotid bruit. Lungs are clear to auscultation. Cardiac: Regular, bradycardic. Abdomen is soft. Bowel sound is positive. There is no gross mass/hepatomegaly. Extremities do not reveal edema. 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 He has been abusing alcohol and Cannabis up to around a week before presentation. Echocardiogram of October 2021 had revealed biatrial enlargement and ejection fraction of more than 60% Nuclear stress test (performed as outpatient) of August 03, 2024 had revealed normal perfusion and ejection fraction of 72% WBC: 13.1 - 9.7 Creatinine: 0.89 - 0.74 Potassium: 4.5 - 3.7 Troponin (high sensitive): 6 - 5 - 6 BNP: 100.81 TSH: 1.93 Urine toxicology was positive for opiates/cannabinoids Chest x-ray revealed: IMPRESSION: 1. Mild right basilar atelectasis or pneumonia. 2. Mild reactive airways disease. EKG reveals sinus rhythm/sinus bradycardia with no ST-T changes Tele reveals sinus rhythm Echocardiogram revealed: Left ventricle: Mild concentric left ventricular hypertrophy was seen. LVEF was 60-65%. There was no gross wall motion abnormality. Right ventricle was normal-sized with normal systolic function. Both atria were mildly dilated. Aortic valve: Aortic valve was trileaflet. Mildly thickened and calcified aortic leaflets were seen. There was no aortic stenosis/insufficiency. There was trace mitral/tricuspid regurgitation. Pulmonary valve was not well visualized. Right ventricular systolic pressure was assessed around 30 mm Hg. There was no pericardial effusion. Patient is a 64-year-old gentleman who presented with generalized weakness. There is question about altered mental status. Denies any actual chest pains. We do have a recent negative nuclear stress test as outpatient. Presentation is not considered acute coronary syndrome. No indication for repeat ischemic workup is available. Patient is admitted with possible bronchitis/pneumonia. Patient did have mild bradycardia on presentation and and 2 point was started on dopamine. There is no indication for any pacemaker implantation at present time. Generalized weakness Bradycardia, sinus, mild Pneumonia, community-acquired Paroxysmal AFib (as per patient's old outside report) History of alcohol/cannabinoids abuse Questionable fall Diabetes mellitus Cardiac suggestion for management: Managed on telemetry Follow-up electrolytes and kidney function tests and correct abnormalities. Keep potassium above 4 and magnesium above 2 For now, continue full anticoagulation (Eliquis) Avoid bassem blocking agents Slowly taper off dopamine Request for D-dimer and if abnormal request for CT angio of the lungs/venous Doppler of lower extremities Management of pneumonia as per primary team Lifestyle and risk factor modifications. Patient was counseled to avoid opiates/alcohol/cannabinoids/substance abuse No indication to repeat any ischemic workup at this time Further evaluation and management depends on the above and clinical course Thank you for consultation Plan discussed with: Patient, Other (nurse) DOMENICO MAHER MD Aug 16, 2024 10:53
--- NOTE | 2024-08-16 11:11 | ECG ---
[facility] Test Date: 2024-08-15 Test Time: 07:19:06 Pat Name: CONSUELO CARLOS Department: ER Room: 0285T Gender: M Reverse Engineer: JOSE ANGEL : 1960 Requested By: LEENA TAYLOR Order Number: [id number] Reading MD: Jacob Camacho Measurements Intervals [place] Rate: 56 P: 73 DE: 149 QRS: 28 QRSD: 108 T: 44 QT: 452 QTc: 437 Interpretive Statements Sinus rhythm Low voltage, precordial leads Baseline wander in lead(s) II,aVR Electronically Signed On 08-18-2024 22:01:20 PDT by Jacob Camacho Please click the below link to view image of tracing.
[2024-08-16] MEDS: IOHEXOL 350 MG/ML 100ML IJ ONE (14:46)
--- NOTE | 2024-08-16 16:02 | DVHPN2 ---
Subjective 64-year-old male with a history of AFib, asthma, CVA, diabetes, hypertension, TIA came with chest pain and bradycardia He was on dopamine drip but he is off the drip now His D-dimer is elevated Changes from previous H/P or p: Changes Eyes: No Pain, No Vision change, No Conjunctivae inflammation, No Eyelid inflammation, No Other, No Redness ENT: No Ear pain, No Ear discharge, No Nose pain, No Nose discharge, No Nose congestion, No Mouth pain, No Mouth swelling, No Throat pain, No Throat swelling, No Other Cardiovascular: Chest Pain; No Palpitations, No Orthopnea, No Paroxysmal Noc. Dyspnea, No Edema, No Lt Headedness, No Other Respiratory: No Cough, No Dry; Shortness of breath, SOB with excertion; No Wheezing, No Hemoptysis, No Pleuritic Pain, No Sputum, No Other Gastrointestinal: No Nausea, No Vomiting, No Abdominal Pain, No Diarrhea, No Constipation, No Melena, No Hematochezia, No Other Genitourinary: No Dysuria, No Frequency, No Incontinence, No Hematuria, No Retention, No Other Musculoskeletal: No other, No neck pain, No shoulder pain, No arm pain, No back pain, No hand pain, No leg pain, No foot pain Skin: No Rash, No Lesions, No Jaundice, No Bruising, No Other Objective Vitals Vital Signs Date Time Temp Pulse Resp B/P (MAP) Pulse Ox O2 Delivery O2 Flow Rate FiO2 08/16/24 15:48 54 08/16/24 14:00 13 95 Nasal Cannula* 2 28 08/16/24 13:47 105/62 08/16/24 12:00 97.8 97.8 Intake/Output Intake and Output 08/16/24 07:00 Intake Total 1620.300 ml Output Total 2700 ml Balance -1079.700 ml Intake Oral 300 ml IV Total 580.300 ml Blood Product 740 ml Output Urine Total 2700 ml General Appearance: Alert, Oriented X3, Cooperative Lungs: Clear to auscultation, Normal air movement Cardiovascular: Other (Irregularly irregular) Abdomen: Normal bowel sounds, Soft, No tenderness Extremities: No edema Medications Current Medications Medications Dose Ordered Sig/James Route Start Time Stop Time Status Last Admin Dose Admin Ondansetron HCl 4 mg Q4HP PRN IV 08/15/24 09:15 Docusate Sodium 100 mg BIDPRN PRN PO 08/15/24 09:15 Morphine Sulfate 2 mg Q4HPRN PRN IV 08/15/24 09:15 Hold Nitroglycerin 0.4 mg Q5MINP PRN SL 08/15/24 09:15 Albuterol 2.5 mg Q4HPRN PRN NEB 08/15/24 09:15 08/16/24 10:58 2.5 MG Ipratropium [place] 0.5 mg Q4HPRN PRN NEB 08/15/24 09:15 08/16/24 10:58 0.5 MG Diagnostic Test (Pha) 1 strip ACHS 08/15/24 11:30 08/16/24 11:30 1 STRIP Insulin Human Regular HS SC 08/15/24 22:00 Insulin Human Regular AC SC 08/15/24 11:30 08/16/24 12:59 2 UNITS Dextrose 50 ml UD PRN IV 08/15/24 09:15 Cyclobenzaprine HCl 10 mg BID PO 08/15/24 10:00 08/16/24 09:35 10 MG Acetaminophen/ Hydrocodone Bitart 1 tab QID PRN PO 08/15/24 09:15 08/16/24 09:40 1 TAB Lisinopril 5 mg DAILY PO 08/15/24 10:00 08/16/24 09:35 5 MG Atorvastatin Calcium 5 mg HS PO 08/15/24 22:00 08/15/24 21:26 5 MG Pregabalin 100 mg BID PO 08/15/24 10:00 08/16/24 09:36 100 MG Apixaban 5 mg BID PO 08/15/24 10:00 08/16/24 09:34 5 MG Ceftriaxone Sodium 50 ml @ 100 mls/hr DAILY@09 IV 08/16/24 09:00 08/16/24 09:32 100 MLS/HR Azithromycin 250 ml @ 125 mls/hr DAILY IV 08/16/24 10:00 08/16/24 09:32 125 MLS/HR Morphine Sulfate 30 mg BID PO 08/15/24 10:30 08/16/24 09:35 30 MG Laboratory Results Laboratory Tests 08/16/24 03:33 Chemistry Test 08/16/24 03:33 Albumin 4.5 g/dL (3.2-4.8) Calcium Level 9.7 mg/dL (8.7-10.4) Total Protein 7.5 g/dL (5.7-8.2) Coagulation Test 08/16/24 10:26 D-Dimer, Quantitative 0.57 mg/L FEU (0.0-0.49) H LFT Test 08/16/24 03:33 Alanine Aminotransferase (ALT) 18 U/L (7-40) Alkaline Phosphatase 70 U/L (46-116) Aspartate Amino Transferase (AST) 11 U/L (13-40) L Total Bilirubin 0.8 mg/dL (0.2-1.0) Urinalysis Test 08/15/24 08:29 Urine Color Light-yellow (Yellow) Urine Clarity Clear (Clear) Urine pH 6.0 (5.0-9.0) Urine Specific [place] 1.037 (1.001-1.035) Urine Protein Negative (Negative) Urine Ketones 2+ (Negative) H Urine Blood Negative /uL (Negative) Urine Nitrite Negative (Negative) Urine Bilirubin Negative (Negative) Urine Urobilinogen Normal mg/dL (Negative) Urine Leukocyte Esterase Negative /uL (Negative) Urine RBC <1 /hpf (0 - 3) Urine Microscopic WBC < 1 /HPF (0-3) Urine Squamous Epithelial Cells None seen /hpf (<5) Urine Bacteria None seen /hpf (None Seen) Urine Glucose 4+ mg/dL (Normal) H Assessment/Plan Assessment/Plan Bradycardia Atrial fibrillation, paroxysmal Community-acquired pneumonia Generalized weakness Type 2 diabetes Morbid obesity Hypertension Mixed hyperlipidemia History of CVA Asthma Plan IV antibiotics for the pneumonia Med neb treatments as needed Eliquis CT angiogram of the chest to rule out PE Lipitor Lisinopril Lyrica Cardiology consult Downgrade to telemetry since he is off the dopamine drip Monitor closely Full code Advance directives discussed for 15 minute Plan discussed with: Patient Date of Service: Aug 16, 2024 Billing Provider: JESSIE NORTON MD Common Visit Codes: [id number] INP/OBS CARE(HIGH) Secondary Visit Codes: [id number] CARE PLAN 30 MINUTES JESSIE NORTON MD Aug 16, 2024 16:02
--- NOTE | 2024-08-16 17:25 | DVH ---
INDICATION: ELEVATED D DIMER, SOB COMPARISON: None TECHNIQUE: Multidetector CTA of the chest was performed of the chest with 100 cc of intravenous contr ast. PULMONARY ANGIOGRAPHY PROTOCOL was utilized using a bolus-tracking technique centered on the anthony n pulmonary artery. Axial, coronal and sagittal multiplanar and MIP reformats were performed. Radiation Dose : 1. Chest: CTDI volume is 21.77 mGy. Dose-length product is 885.87 mGy*cm The dose indicators for CT are the volume Computed Tomography (CT) Dose Index (CTDIvol) and the Dose Length Product (DLP), and are measured in units of mGy and mGy-cm, respectively. These indicators are not patient dose, but values generated from the CT scanner acquisition factors. The report includes radiation exposure data for exposures received during this examination. Findings: The thyroid gland is unremarkable. No pulmonary embolism. Dilatation of the pulmonary trunk up to 35 mm. No evidence of aortic aneurysm or dissection. Heart size is within normal limits. Trace pericardial effusion. Shotty mediastinal and bilateral hilar lymph nodes. Bibasilar and right middle lobe opacities. No pneumothorax. Trace right-sided pleural effusion. Left medial lung base bulla. Minimal wall thickening of the esophagus. Mild wall thickening of the stomach. Mild nonspecific bila teral perirenal fat stranding. Otherwise, partial view of the upper abdomen is unremarkable. Minimal body wall edema. Spinal stimulator wires noted within the posterior spinal canal at the level of C5-C6. No destructive osseous lesions are noted. Old fracture deformities of left lateral ribs 5 to 7. IMPRESSION: No pulmonary embolism. No aortic aneurysm or dissection. Dilatation of the pulmonary trunk up to 35 mm. Correlate for pulmonary arterial hypertension. Patchy opacities of bilateral lower lobes and right middle lobe which may represent pneumonia in the right clinical setting versus atelectasis. Trace right-sided pleural effusion. Mild wall thickening of the esophagus and stomach. Correlate for possible mild esophagitis and gastr itis respectively.
[2024-08-17] VITALS (10 sets, daily range): BP systolic 102–116; BP diastolic 59–72; PULSE 53–88; RESP 16–18; TEMP 97.5–98.2; O2SAT 93–98
--- NOTE | 2024-08-17 07:09 | DVHPN2 ---
Progress Note - Dictate Date Seen: Aug 17, 2024 Medical Necessity Reason Pt with a Central, PICC or Fol: No vital signs Vital Sign Date Time Temp Pulse Resp B/P (MAP) Pulse Ox O2 Delivery O2 Flow Rate FiO2 08/17/24 04:48 97.5 53 17 113/64 (80) 98 97.5 08/17/24 00:06 Nasal BiPAP Mask 35 08/16/24 22:26 2 Total Intake and Output 08/16/24 08/16/24 08/17/24 15:00 23:00 07:00 Intake Total 704.390 ml 150 ml 300 ml Balance 704.390 ml 150 ml 300 ml medications Current Medications Medications Dose Ordered Sig/James Route Start Time Stop Time Status Last Admin Dose Admin Ondansetron HCl 4 mg Q4HP PRN IV 08/15/24 09:15 Docusate Sodium 100 mg BIDPRN PRN PO 08/15/24 09:15 Morphine Sulfate 2 mg Q4HPRN PRN IV 08/15/24 09:15 Hold Nitroglycerin 0.4 mg Q5MINP PRN SL 08/15/24 09:15 Albuterol 2.5 mg Q4HPRN PRN NEB 08/15/24 09:15 08/16/24 22:26 2.5 MG Ipratropium [place] 0.5 mg Q4HPRN PRN NEB 08/15/24 09:15 08/16/24 22:26 0.5 MG Diagnostic Test (Pha) 1 strip ACHS 08/15/24 11:30 08/17/24 06:19 1 STRIP Insulin Human Regular HS SC 08/15/24 22:00 08/16/24 21:40 3 UNITS Insulin Human Regular AC SC 08/15/24 11:30 08/17/24 06:25 3 UNITS Dextrose 50 ml UD PRN IV 08/15/24 09:15 Cyclobenzaprine HCl 10 mg BID PO 08/15/24 10:00 08/16/24 09:35 10 MG Acetaminophen/ Hydrocodone Bitart 1 tab QID PRN PO 08/15/24 09:15 08/16/24 09:40 1 TAB Lisinopril 5 mg DAILY PO 08/15/24 10:00 08/16/24 09:35 5 MG Atorvastatin Calcium 5 mg HS PO 08/15/24 22:00 08/16/24 21:31 5 MG Pregabalin 100 mg BID PO 08/15/24 10:00 08/16/24 21:27 100 MG Apixaban 5 mg BID PO 08/15/24 10:00 08/16/24 21:30 5 MG Ceftriaxone Sodium 50 ml @ 100 mls/hr DAILY@09 IV 08/16/24 09:00 08/16/24 09:32 100 MLS/HR Azithromycin 250 ml @ 125 mls/hr DAILY IV 08/16/24 10:00 08/16/24 09:32 125 MLS/HR Morphine Sulfate 30 mg BID PO 08/15/24 10:30 08/16/24 21:30 30 MG laboratory and microbiology Laboratory Tests 08/16/24 03:33 Test 08/16/24 03:33 Range/Units Serum Glucose 187 H 74-106 mg/dL Assessment/Plan Patient is a 64-year-old gentleman who presented to the hospital with not feeling well. Chart has mentioned chest pain. Patient himself denies any episode of chest pain. He did feel somewhat short of breath and feeling weak. Cardiology is involved for cardiac aspects of care. Patient is known to our practice from outside. Patient has stopped drinking alcohol and using weed around a week before presentation which could have contributed to the clinical picture? He does have history of noncompliance. He has been told that he has paroxysmal atrial fibrillation for which is on Eliquis as outpatient (not found in our evaluation as outpatient yet). Not in acute distress. No JVD. Mucosa is pink and wet. No carotid bruit. Lungs are clear to auscultation. Cardiac: Regular, bradycardic. Abdomen is soft. Bowel sound is positive. There is no gross mass/hepatomegaly. Extremities do not reveal edema. 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 He has been abusing alcohol and Cannabis up to around a week before presentation. Echocardiogram of October 2021 had revealed biatrial enlargement and ejection fraction of more than 60% Nuclear stress test (performed as outpatient) of August 03, 2024 had revealed normal perfusion and ejection fraction of 72% WBC: 13.1 - 9.7 Creatinine: 0.89 - 0.74 Potassium: 4.5 - 3.7 Troponin (high sensitive): 6 - 5 - 6 BNP: 100.81 TSH: 1.93 D-Dimer: 0.57 Urine toxicology was positive for opiates/cannabinoids Chest x-ray revealed: IMPRESSION: 1. Mild right basilar atelectasis or pneumonia. 2. Mild reactive airways disease. CTA of lungs revealed: IMPRESSION: No pulmonary embolism. No aortic aneurysm or dissection. Dilatation of the pulmonary trunk up to 35 mm. Correlate for pulmonary arterial hypertension. Patchy opacities of bilateral lower lobes and right middle lobe which may represent pneumonia in the right clinical setting versus atelectasis. Trace right-sided pleural effusion. Mild wall thickening of the esophagus and stomach. Correlate for possible mild esophagitis and gastritis respectively. EKG reveals sinus rhythm/sinus bradycardia with no ST-T changes Tele reveals sinus rhythm Echocardiogram revealed: Left ventricle: Mild concentric left ventricular hypertrophy was seen. LVEF was 60-65%. There was no gross wall motion abnormality. Right ventricle was normal-sized with normal systolic function. Both atria were mildly dilated. Aortic valve: Aortic valve was trileaflet. Mildly thickened and calcified aortic leaflets were seen. There was no aortic stenosis/insufficiency. There was trace mitral/tricuspid regurgitation. Pulmonary valve was not well visualized. Right ventricular systolic pressure was assessed around 30 mm Hg. There was no pericardial effusion. Patient is a 64-year-old gentleman who presented with generalized weakness. There is question about altered mental status. Denies any actual chest pains. We do have a recent negative nuclear stress test as outpatient. Presentation is not considered acute coronary syndrome. No indication for repeat ischemic workup is available. Patient is admitted with possible bronchitis/pneumonia. Patient did have mild bradycardia on presentation and and 2 point was started on dopamine. There is no indication for any pacemaker implantation at present time. Generalized weakness Bradycardia, sinus, mild Pneumonia, community-acquired Paroxysmal AFib (as per patient's old outside report) History of alcohol/cannabinoids abuse Questionable fall Diabetes mellitus Cardiac suggestion for management: Managed on telemetry Follow-up electrolytes and kidney function tests and correct abnormalities. Keep potassium above 4 and magnesium above 2 For now, continue full anticoagulation (Eliquis) Avoid bassem blocking agents Slowly taper off dopamine Management of pneumonia as per primary team Lifestyle and risk factor modifications. Patient was counseled to avoid opiates/alcohol/cannabinoids/substance abuse No indication to repeat any ischemic workup at this time Cardiac [place], can be followed as outpatient Further evaluation and management depends on the above and clinical course A total of 55 minutes was spent reviewing the patient record, examining the patient, making a diagnostic and therapeutic plan, discussing this plan with medical personnel, following up on diagnostic studies and following the patient for clinical stability excluding any and all procedures. At least 50% of this time was spent in direct, [id number] contact. Thank you for allowing me to participate in this patient's care. Further recommendations will depend on patient's clinical course. Please do not hesitate to contact me if you have any questions or concerns. This medical document was created using electronic medical record system with [employer] computerized dictation system. Although this document has been carefully reviewed, there may still be some phonetic and typographical errors. These areas are purely typographical due to the imperfection of the software programs, and do not reflect any compromise in the patient's medical care Plan discussed with: Patient, Other (nurse) DOMENICO MAHER MD Aug 17, 2024 07:09
--- NOTE | 2024-08-17 11:08 | DVHPN2 ---
Subjective Better On 2 L nasal cannula Changes from previous H/P or p: Changes Eyes: No Pain, No Vision change, No Conjunctivae inflammation, No Eyelid inflammation, No Other, No Redness ENT: No Ear pain, No Ear discharge, No Nose pain, No Nose discharge, No Nose congestion, No Mouth pain, No Mouth swelling, No Throat pain, No Throat swelling, No Other Cardiovascular: Chest Pain; No Palpitations, No Orthopnea, No Paroxysmal Noc. Dyspnea, No Edema, No Lt Headedness, No Other Respiratory: No Cough, No Dry; Shortness of breath, SOB with excertion; No Wheezing, No Hemoptysis, No Pleuritic Pain, No Sputum, No Other Gastrointestinal: No Nausea, No Vomiting, No Abdominal Pain, No Diarrhea, No Constipation, No Melena, No Hematochezia, No Other Genitourinary: No Dysuria, No Frequency, No Incontinence, No Hematuria, No Retention, No Other Musculoskeletal: No other, No neck pain, No shoulder pain, No arm pain, No back pain, No hand pain, No leg pain, No foot pain Skin: No Rash, No Lesions, No Jaundice, No Bruising, No Other Objective Vitals Vital Signs Date Time Temp Pulse Resp B/P (MAP) Pulse Ox O2 Delivery O2 Flow Rate FiO2 08/17/24 10:10 95 Nasal Cannula* 2 28 08/17/24 09:45 119/88 08/17/24 09:00 98.2 55 18 98.2 Intake/Output Intake and Output 08/17/24 07:00 Intake Total 1154.390 ml Balance 1154.390 ml Intake Oral 800 ml IV Total 354.390 ml # Voids 4 General Appearance: Alert, Oriented X3, Cooperative Lungs: Clear to auscultation, Normal air movement Cardiovascular: Other (Irregularly irregular) Abdomen: Normal bowel sounds, Soft, No tenderness Extremities: No edema Medications Current Medications Medications Dose Ordered Sig/James Route Start Time Stop Time Status Last Admin Dose Admin Ondansetron HCl 4 mg Q4HP PRN IV 08/15/24 09:15 Docusate Sodium 100 mg BIDPRN PRN PO 08/15/24 09:15 Morphine Sulfate 2 mg Q4HPRN PRN IV 08/15/24 09:15 Hold Nitroglycerin 0.4 mg Q5MINP PRN SL 08/15/24 09:15 Albuterol 2.5 mg Q4HPRN PRN NEB 08/15/24 09:15 08/16/24 22:26 2.5 MG Ipratropium [place] 0.5 mg Q4HPRN PRN NEB 08/15/24 09:15 08/16/24 22:26 0.5 MG Diagnostic Test (Pha) 1 strip ACHS 08/15/24 11:30 08/17/24 06:19 1 STRIP Insulin Human Regular HS SC 08/15/24 22:00 08/16/24 21:40 3 UNITS Insulin Human Regular AC SC 08/15/24 11:30 08/17/24 06:25 3 UNITS Dextrose 50 ml UD PRN IV 08/15/24 09:15 Cyclobenzaprine HCl 10 mg BID PO 08/15/24 10:00 08/17/24 09:44 10 MG Acetaminophen/ Hydrocodone Bitart 1 tab QID PRN PO 08/15/24 09:15 08/16/24 09:40 1 TAB Lisinopril 5 mg DAILY PO 08/15/24 10:00 08/17/24 09:45 5 MG Atorvastatin Calcium 5 mg HS PO 08/15/24 22:00 08/16/24 21:31 5 MG Pregabalin 100 mg BID PO 08/15/24 10:00 08/17/24 10:08 100 MG Apixaban 5 mg BID PO 08/15/24 10:00 08/17/24 09:44 5 MG Ceftriaxone Sodium 50 ml @ 100 mls/hr DAILY@09 IV 08/16/24 09:00 08/17/24 08:24 100 MLS/HR Azithromycin 250 ml @ 125 mls/hr DAILY IV 08/16/24 10:00 08/17/24 10:00 125 MLS/HR Morphine Sulfate 30 mg BID PO 08/15/24 10:30 08/17/24 09:43 30 MG Laboratory Results Laboratory Tests 08/16/24 03:33 Urinalysis Test 08/15/24 08:29 Urine Color Light-yellow (Yellow) Urine Clarity Clear (Clear) Urine pH 6.0 (5.0-9.0) Urine Specific [place] 1.037 (1.001-1.035) Urine Protein Negative (Negative) Urine Ketones 2+ (Negative) H Urine Blood Negative /uL (Negative) Urine Nitrite Negative (Negative) Urine Bilirubin Negative (Negative) Urine Urobilinogen Normal mg/dL (Negative) Urine Leukocyte Esterase Negative /uL (Negative) Urine RBC <1 /hpf (0 - 3) Urine Microscopic WBC < 1 /HPF (0-3) Urine Squamous Epithelial Cells None seen /hpf (<5) Urine Bacteria None seen /hpf (None Seen) Urine Glucose 4+ mg/dL (Normal) H Assessment/Plan Assessment/Plan Bradycardia Atrial fibrillation, paroxysmal Community-acquired pneumonia Generalized weakness Type 2 diabetes Morbid obesity Hypertension Mixed hyperlipidemia History of CVA Asthma Plan IV antibiotics for the pneumonia Med neb treatments as needed Eliquis CT angiogram of the chest to rule out PE Lipitor Lisinopril Lyrica Cardiology consult Downgrade to telemetry since he is off the dopamine drip Monitor closely Full code Advance directives discussed for 15 minute 08/17/2024: IV antibiotics Rocephin and Zithromax Eliquis Oxygen as needed Keeping the hospital 1 more day We will check oxygen or room air tomorrow to see if he needs home O2 Monitor closely The rest of the management will depend on the hospital course Plan discussed with: Patient Date of Service: Aug 17, 2024 Billing Provider: JESSIE NORTON MD Common Visit Codes: [id number] INP/OBS CARE(HIGH) JESSIE NORTON MD Aug 17, 2024 11:08
[2024-08-17 19:29] LABS: Potassium 4.2 mmol/L (3.5-5.1)
[2024-08-17 19:36] LABS: Magnesium 1.8 mg/dL (1.6-2.6)
--- NOTE | 2024-08-17 21:05 | DVHINCON2 ---
Date of service: Aug 17, 2024 Referring Physician Joaquina Nieto MD Reason for Consultation Acute hypoxic respiratory failure, pneumonia and pleural effusion History of Present Illness A 64-year-old man with past medical history of asthma, AFib on Eliquis, CVA, diabetes, hyperlipidemia, hypertension and TIA who presented to ED on 08/15/24 with chief complaint of chest pain. Pt reported he woke up at 2:00 a.m. on day of presentation with chest pain. Denied shortness of breath. Patient took his inhaler, but heaviness in the chest continued with no aggravating or alleviating factors. Reports compliance with medications. In the ED he was noted to be bradycardic and dopamine drip was started, aspirin was given. WBC was 13.1, glucose of 251, calcium was 10.5. Troponin was negative. Alcohol level negative. Chest x-ray showing pneumonia in the right lung. Echo from 2021 showed EF of 60%. 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 Alvarado. Patient was admitted for further care and pulmonary consultation is requested for evaluation and management of acute hypoxic respiratory failure, pneumonia and pleural effusion. Review of Systems: 14-point review of systems negative unless otherwise noted above. Past Medical History: Asthma, AFib on Eliquis, CVA, diabetes, hyperlipidemia, hypertension and TIA Past Surgical History: Orchectomy, left elbow surgery, spinal cord surgery with stimulator x2 Medications: Reviewed. Allergies: Vancomycin Family History: Breast cancer Cardiovascular disease Diabetes mellitus Hypertension. Social History: Nonsmoker. No alcohol or illicit drug use. Family History: Cancer G8 MOTHER, FH: breast cancer G8 MOTHER, Family history: Cardiovascular disease G8 FATHER, Family history: Diabetes mellitus G8 MOTHER, Family history: Hypertension G8 FATHER, Allergies: Coded Allergies: Vancomycin (Verified Allergy, Severe, 07/19/17) Home Meds Active Scripts Cephalexin Monohydrate (Cephalexin) 500 Mg Cap, 1 CAP PO QID for 10 Days, #40 CAP Prov:ROJAS,NORALDA Q AUDIOVISUAL LIBRARIAN 03/02/23 Sulfamethoxazole W/Trimethopri (Bactrim Ds Tablet) 1 Tab Tb, 1 TAB PO BID for 10 Days, #20 TAB Prov:ROJAS,NORALDA Q AUDIOVISUAL LIBRARIAN 03/02/23 Aqycunci-[id number]-Lj (Otic) (Cortisporin Otic Soln) [address], 2 DROP OT BID for 3 Days, #3.5 DROP Prov:DOMENICO CAIN PAC 10/13/22 Reported Medications Morphine Sulfate (Morphine Sulfate Cr) 15 Mg Tab, 20 MG PO BID, #60 TAB 07/21/17 Lovastatin (Lovastatin) 10 Mg Tab, 10 MG PO HSMR1, TAB 07/21/17 Pregabalin (Lyrica) 100 Mg Cap, 1 CAP PO BID, #60 CAP 2 Refills 07/20/17 Lovastatin (Lovastatin) 10 Mg Tab, 10 MG PO HS, TAB 11/09/14 Cyclobenzaprine Hcl (Cyclobenzaprine Hcl) 10 Mg Tab, 10 MG PO BID, TAB 11/09/14 Hydrocodone-Acetaminophen ([place] 10/325MG) 1 Tab Tb, 1 TAB PO QID PRN for SEVERE PAIN, #90 TAB 11/09/14 Lisinopril (ZESTRIL TABLET) 5 Mg Tb, 1 TAB PO DAILY, #30 TAB 5 Refills 11/09/14 Metformin Hydrochloride (Metformin Hcl) 1,000 Mg Tab, BID 09/12/11 Vital Signs Vital Signs Date Time Temp Pulse Resp B/P (MAP) Pulse Ox O2 Delivery O2 Flow Rate FiO2 08/17/24 18:40 96 Nasal Cannula 2.0 08/17/24 18:40 28 08/17/24 17:00 97.8 53 16 105/62 (76) 97.8 Physical Exam Gen.: Patient lying in bed in no apparent distress. On supplemental oxygen. Head: Normocephalic, atraumatic. Eyes: EOMI/PERRLA. Ears: Normal hearing. Normal anatomy. Neck/trachea: Trachea midline, supple. Nose: Normal external anatomy. Mouth: Moist mucous membranes. Chest: Decreased air entry bilaterally. No wheezing or rhonchi. Cardiovascular: Positive S1, positive S2. Regular rate and rhythm. Abdomen: Positive bowel sounds in all 4 quadrants. Soft, non-tender, non- distended. : Deferred. Rectal: Deferred. Skin: Warm, dry. Intact. Extremities: 2+ radial pulses bilaterally. No lower extremity edema. Neuro: Awake, alert, oriented x3. No gross motor or sensory deficits. Cranial nerves II through XII intact. Gait not assessed. Labs/Diagnostic Data Labs Test 08/17/24 19:00 08/17/24 16:35 08/16/24 10:26 08/16/24 03:33 Range/Units Potassium Level 4.2 3.5-5.1 mmol/L Magnesium Level 1.8 1.6-2.6 mg/dL Troponin I High Sensitivity 5 </=54 ng/L POC Glucose 165 H 70-106 mg/dl D-Dimer, Quantitative 0.57 H 0.0-0.49 mg/L FEU White Blood Count 9.7 # 4.4-10.8 10^3/uL Red Blood Count 4.94 4.5-5.90 10^6/uL Hemoglobin 15.6 13.5-17.5 g/dL Hematocrit 45.6 41.0-53.0 % Mean Corpuscular Volume 92.4 80.0-100.0 fL Mean Corpuscular Hemoglobin 31.6 28.0-32.0 pg Mean Corpuscular Hemoglobin Concent 34.2 32.0-36.0 g/dL Red Cell Distribution Width 13.7 11.8-14.3 % Platelet Count 166 140-450 10^3/uL Mean Platelet Volume 10.4 6.9-10.8 fL Neutrophils (%) (Auto) 67.6 37.0-80.0 % Lymphocytes (%) (Auto) 19.1 10.0-50.0 % Monocytes (%) (Auto) 10.8 0.0-12.0 % Eosinophils (%) (Auto) 1.5 0.0-7.0 % Basophils (%) (Auto) 1.0 0.0-2.0 % Neutrophils # (Auto) 6.6 1.6-8.6 10 ^3/uL Lymphocytes # (Auto) 1.9 0.4-5.4 10 ^3/uL Monocytes # (Auto) 1.0 0-1.3 10 ^3/uL Eosinophils # (Auto) 0.1 0-0.8 10 ^3/uL Basophils # (Auto) 0.1 0-0.2 10 ^3/uL Nucleated Red Blood Cells 0.0 % Sodium Level 141 136-145 mmol/L Chloride Level 107 98-107 mmol/L Carbon Dioxide Level 25 20-31 mmol/L Anion Gap 9 5-15 Blood Urea Nitrogen 13 9-23 mg/dL Creatinine 0.74 0.700-1.30 mg/dL Glomerular Filtration Rate Calc 102 >90 mL/min BUN/Creatinine Ratio 17.6 10.0-20.0 Serum Glucose 187 H 74-106 mg/dL Calcium Level 9.7 8.7-10.4 mg/dL Total Bilirubin 0.8 0.2-1.0 mg/dL Aspartate Amino Transferase (AST) 11 L 13-40 U/L Alanine Aminotransferase (ALT) 18 7-40 U/L Alkaline Phosphatase 70 46-116 U/L Total Protein 7.5 5.7-8.2 g/dL Albumin 4.5 3.2-4.8 g/dL Test 08/15/24 08:29 08/15/24 07:25 Range/Units Urine Color Light-yellow Yellow Urine Clarity Clear Clear Urine pH 6.0 5.0-9.0 Urine Specific [place] 1.037 H 1.001-1.035 Urine Protein Negative Negative Urine Ketones 2+ H Negative Urine Blood Negative Negative /uL Urine Nitrite Negative Negative Urine Bilirubin Negative Negative Urine Urobilinogen Normal Negative mg/dL Urine Leukocyte Esterase Negative Negative /uL Urine RBC <1 0 - 3 /hpf Urine Microscopic WBC < 1 0-3 /HPF Urine Squamous Epithelial Cells None seen <5 /hpf Urine Bacteria None seen None Seen /hpf Urine Glucose 4+ H Normal mg/dL Urine Opiates Screen Pos NEGATIVE Urine Fentanyl Screen Neg NEGATIVE Urine Barbiturates Screen Neg NEGATIVE Urine Phencyclidine Screen Neg NEGATIVE Urine Amphetamines Screen Neg NEGATIVE Urine Benzodiazepines Screen Neg NEGATIVE Urine Cocaine Screen Neg NEGATIVE Urine Cannabinoids Screen Pos NEGATIVE Phosphorus Level 2.1 L 2.4-5.1 mg/dL B-Type Natriuretic Peptide 100.81 0-100 pg/mL Thyroid Stimulating Hormone (TSH) 1.93 0.55-4.78 uIU/mL Plasma/Serum Blood Alcohol < 3.0 <10 mg/dL Assessment Impression: Acute hypoxic respiratory failure Dependence on supplemental oxygen Pneumonia, likely gram negative Pleural effusion Atelectasis Overweight, BMI 29.8 Plan: Supplemental oxygen 2 LPM NC Titrate to keep O2 sats above 92%. Taper O2 as tolerated. On Eliquis BID Continue antibiotics WBC within normal limits Follow up cultures Incentive spirometry Echo report reviewed - RVSP of 30 mmHg Cardiology recommendations appreciated Accu-Cheks, ISS. Monitor renal function. Monitor electrolytes. Supplement as necessary. Monitor ins and outs. Diet and lifestyle modifications for weight reduction DVT prophylaxis. Prognosis: Poor given patient's multiple co-morbidities. Rest of plan per hospitalist and other consultants. Thank you, Dr. Nieto, for allowing me to participate in this patient's care. Further recommendations will depend on the patient's clinical course. Please do not hesitate to contact me if you have any questions or concerns. This medical document was created using an electronic medical record system with [employer] dictation system. Although these documentations are being carefully reviewed, there may still be some phonetic and typographical changes. The errors are purely typographical, due to imperfection on the software program, and do not reflect any compromise in the patient's medical care. Plan discussed with: Other (JOSE Shaw/Dr. Nieto) DIANA IRBY MD Aug 17, 2024 21:05
[2024-08-18] VITALS (10 sets, daily range): BP systolic 97–125; BP diastolic 46–80; PULSE 54–67; RESP 17–19; TEMP 97.3–98.8; O2SAT 93–98
--- NOTE | 2024-08-18 06:51 | DVHPN2 ---
Progress Note - Dictate Date Seen: Aug 18, 2024 Medical Necessity Reason Pt with a Central, PICC or Fol: No vital signs Vital Sign Date Time Temp Pulse Resp B/P (MAP) Pulse Ox O2 Delivery O2 Flow Rate FiO2 08/18/24 05:00 98.8 54 18 107/65 (79) 93 98.8 08/17/24 20:00 Nasal Cannula* 2 28 Total Intake and Output 08/17/24 08/17/24 08/18/24 15:00 23:00 07:00 Intake Total 170 ml 1488 ml 500 ml Balance 170 ml 1488 ml 500 ml medications Current Medications Medications Dose Ordered Sig/James Route Start Time Stop Time Status Last Admin Dose Admin Ondansetron HCl 4 mg Q4HP PRN IV 08/15/24 09:15 Docusate Sodium 100 mg BIDPRN PRN PO 08/15/24 09:15 Morphine Sulfate 2 mg Q4HPRN PRN IV 08/15/24 09:15 Hold Nitroglycerin 0.4 mg Q5MINP PRN SL 08/15/24 09:15 Albuterol 2.5 mg Q4HPRN PRN NEB 08/15/24 09:15 08/16/24 22:26 2.5 MG Ipratropium [place] 0.5 mg Q4HPRN PRN NEB 08/15/24 09:15 08/16/24 22:26 0.5 MG Diagnostic Test (Pha) 1 strip ACHS 08/15/24 11:30 08/18/24 06:25 1 STRIP Insulin Human Regular HS SC 08/15/24 22:00 08/17/24 21:14 3 UNITS Insulin Human Regular AC SC 08/15/24 11:30 08/18/24 06:27 3 UNITS Dextrose 50 ml UD PRN IV 08/15/24 09:15 Cyclobenzaprine HCl 10 mg BID PO 08/15/24 10:00 08/17/24 21:11 10 MG Acetaminophen/ Hydrocodone Bitart 1 tab QID PRN PO 08/15/24 09:15 08/16/24 09:40 1 TAB Lisinopril 5 mg DAILY PO 08/15/24 10:00 08/17/24 09:45 5 MG Atorvastatin Calcium 5 mg HS PO 08/15/24 22:00 08/17/24 21:14 5 MG Pregabalin 100 mg BID PO 08/15/24 10:00 08/17/24 21:10 100 MG Apixaban 5 mg BID PO 08/15/24 10:00 08/17/24 21:10 5 MG Ceftriaxone Sodium 50 ml @ 100 mls/hr DAILY@09 IV 08/16/24 09:00 08/17/24 08:24 100 MLS/HR Azithromycin 250 ml @ 125 mls/hr DAILY IV 08/16/24 10:00 08/17/24 10:00 125 MLS/HR Morphine Sulfate 30 mg BID PO 08/15/24 10:30 08/17/24 21:11 30 MG laboratory and microbiology Laboratory Tests 08/17/24 19:00 08/16/24 03:33 Test 08/16/24 03:33 Range/Units Serum Glucose 187 H 74-106 mg/dL Assessment/Plan Patient is a 64-year-old gentleman who presented to the hospital with not feeling well. Chart has mentioned chest pain. Patient himself denies any episode of chest pain. He did feel somewhat short of breath and feeling weak. Cardiology is involved for cardiac aspects of care. Patient is known to our practice from outside. Patient has stopped drinking alcohol and using weed around a week before presentation which could have contributed to the clinical picture? He does have history of noncompliance. He has been told that he has paroxysmal atrial fibrillation for which is on Eliquis as outpatient (not found in our evaluation as outpatient yet). Not in acute distress. No JVD. Mucosa is pink and wet. No carotid bruit. Lungs are clear to auscultation. Cardiac: Regular, bradycardic. Abdomen is soft. Bowel sound is positive. There is no gross mass/hepatomegaly. Extremities do not reveal edema. 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 He has been abusing alcohol and Cannabis up to around a week before presentation. Echocardiogram of October 2021 had revealed biatrial enlargement and ejection fraction of more than 60% Nuclear stress test (performed as outpatient) of August 03, 2024 had revealed normal perfusion and ejection fraction of 72% WBC: 13.1 - 9.7 Creatinine: 0.89 - 0.74 Potassium: 4.5 - 3.7 - 4.2 Troponin (high sensitive): 6 - 5 - 6 - 5 BNP: 100.81 TSH: 1.93 D-Dimer: 0.57 Urine toxicology was positive for opiates/cannabinoids Chest x-ray revealed: IMPRESSION: 1. Mild right basilar atelectasis or pneumonia. 2. Mild reactive airways disease. CTA of lungs revealed: IMPRESSION: No pulmonary embolism. No aortic aneurysm or dissection. Dilatation of the pulmonary trunk up to 35 mm. Correlate for pulmonary arterial hypertension. Patchy opacities of bilateral lower lobes and right middle lobe which may represent pneumonia in the right clinical setting versus atelectasis. Trace right-sided pleural effusion. Mild wall thickening of the esophagus and stomach. Correlate for possible mild esophagitis and gastritis respectively. EKG reveals sinus rhythm/sinus bradycardia with no ST-T changes Tele reveals sinus rhythm Echocardiogram revealed: Left ventricle: Mild concentric left ventricular hypertrophy was seen. LVEF was 60-65%. There was no gross wall motion abnormality. Right ventricle was normal-sized with normal systolic function. Both atria were mildly dilated. Aortic valve: Aortic valve was trileaflet. Mildly thickened and calcified aortic leaflets were seen. There was no aortic stenosis/insufficiency. There was trace mitral/tricuspid regurgitation. Pulmonary valve was not well visualized. Right ventricular systolic pressure was assessed around 30 mm Hg. There was no pericardial effusion. Patient is a 64-year-old gentleman who presented with generalized weakness. There is question about altered mental status. Denies any actual chest pains. We do have a recent negative nuclear stress test as outpatient. Presentation is not considered acute coronary syndrome. No indication for repeat ischemic workup is available. Patient is admitted with possible bronchitis/pneumonia. Patient did have mild bradycardia on presentation and and 2 point was started on dopamine. There is no indication for any pacemaker implantation at present time. Generalized weakness Bradycardia, sinus, mild Pneumonia, community-acquired Paroxysmal AFib (as per patient's old outside report) History of alcohol/cannabinoids abuse Questionable fall Diabetes mellitus Cardiac suggestion for management: Managed on telemetry Follow-up electrolytes and kidney function tests and correct abnormalities. Keep potassium above 4 and magnesium above 2 For now, continue full anticoagulation (Eliquis) Avoid bassem blocking agents Management of pneumonia as per primary team Lifestyle and risk factor modifications. Patient was counseled to avoid opiates/alcohol/cannabinoids/substance abuse No indication to repeat any ischemic workup at this time Cardiac [place], can be followed as outpatient Further evaluation and management depends on the above and clinical course A total of 55 minutes was spent reviewing the patient record, examining the patient, making a diagnostic and therapeutic plan, discussing this plan with medical personnel, following up on diagnostic studies and following the patient for clinical stability excluding any and all procedures. At least 50% of this time was spent in direct, [id number] contact. Thank you for allowing me to participate in this patient's care. Further recommendations will depend on patient's clinical course. Please do not hesitate to contact me if you have any questions or concerns. This medical document was created using electronic medical record system with [employer] computerized dictation system. Although this document has been carefully reviewed, there may still be some phonetic and typographical errors. These areas are purely typographical due to the imperfection of the software programs, and do not reflect any compromise in the patient's medical care Plan discussed with: Patient, Other (nurse) DOMENICO MAHER MD Aug 18, 2024 06:51
--- NOTE | 2024-08-18 15:38 | DVHPN2 ---
Subjective Better On 2 L nasal cannula He is still complaining of shortness of breaths and cough Changes from previous H/P or p: Changes Eyes: No Pain, No Vision change, No Conjunctivae inflammation, No Eyelid inflammation, No Other, No Redness ENT: No Ear pain, No Ear discharge, No Nose pain, No Nose discharge, No Nose congestion, No Mouth pain, No Mouth swelling, No Throat pain, No Throat swelling, No Other Cardiovascular: Chest Pain; No Palpitations, No Orthopnea, No Paroxysmal Noc. Dyspnea, No Edema, No Lt Headedness, No Other Respiratory: No Cough, No Dry; Shortness of breath, SOB with excertion; No Wheezing, No Hemoptysis, No Pleuritic Pain, No Sputum, No Other Gastrointestinal: No Nausea, No Vomiting, No Abdominal Pain, No Diarrhea, No Constipation, No Melena, No Hematochezia, No Other Genitourinary: No Dysuria, No Frequency, No Incontinence, No Hematuria, No Retention, No Other Musculoskeletal: No other, No neck pain, No shoulder pain, No arm pain, No back pain, No hand pain, No leg pain, No foot pain Skin: No Rash, No Lesions, No Jaundice, No Bruising, No Other Objective Vitals Vital Signs Date Time Temp Pulse Resp B/P (MAP) Pulse Ox O2 Delivery O2 Flow Rate FiO2 08/18/24 13:00 97.3 61 18 104/61 (75) 95 97.3 08/18/24 10:00 Nasal Cannula 2.0 08/18/24 10:00 28 Intake/Output Intake and Output 08/18/24 07:00 Intake Total 2158 ml Balance 2158 ml Intake Oral 1988 ml IV Total 170 ml # Voids 4 General Appearance: Alert, Oriented X3, Cooperative Lungs: Clear to auscultation, Normal air movement Cardiovascular: Other (Irregularly irregular) Abdomen: Normal bowel sounds, Soft, No tenderness Extremities: No edema Medications Current Medications Medications Dose Ordered Sig/James Route Start Time Stop Time Status Last Admin Dose Admin Ondansetron HCl 4 mg Q4HP PRN IV 08/15/24 09:15 Docusate Sodium 100 mg BIDPRN PRN PO 08/15/24 09:15 Morphine Sulfate 2 mg Q4HPRN PRN IV 08/15/24 09:15 Hold Nitroglycerin 0.4 mg Q5MINP PRN SL 08/15/24 09:15 Albuterol 2.5 mg Q4HPRN PRN NEB 08/15/24 09:15 08/16/24 22:26 2.5 MG Ipratropium [place] 0.5 mg Q4HPRN PRN NEB 08/15/24 09:15 08/16/24 22:26 0.5 MG Diagnostic Test (Pha) 1 strip ACHS 08/15/24 11:30 08/18/24 12:27 1 STRIP Insulin Human Regular HS SC 08/15/24 22:00 08/17/24 21:14 3 UNITS Insulin Human Regular AC SC 08/15/24 11:30 08/18/24 12:27 3 UNITS Dextrose 50 ml UD PRN IV 08/15/24 09:15 Cyclobenzaprine HCl 10 mg BID PO 08/15/24 10:00 08/18/24 09:20 10 MG Acetaminophen/ Hydrocodone Bitart 1 tab QID PRN PO 08/15/24 09:15 08/16/24 09:40 1 TAB Lisinopril 5 mg DAILY PO 08/15/24 10:00 08/18/24 09:20 5 MG Atorvastatin Calcium 5 mg HS PO 08/15/24 22:00 08/17/24 21:14 5 MG Pregabalin 100 mg BID PO 08/15/24 10:00 08/18/24 09:21 100 MG Apixaban 5 mg BID PO 08/15/24 10:00 08/18/24 09:21 5 MG Ceftriaxone Sodium 50 ml @ 100 mls/hr DAILY@09 IV 08/16/24 09:00 08/18/24 09:20 100 MLS/HR Azithromycin 250 ml @ 125 mls/hr DAILY IV 08/16/24 10:00 08/18/24 10:06 125 MLS/HR Morphine Sulfate 30 mg BID PO 08/15/24 10:30 08/18/24 09:21 30 MG Laboratory Results Laboratory Tests 08/16/24 03:33 08/17/24 19:00 Chemistry Test 08/17/24 19:00 Magnesium Level 1.8 mg/dL (1.6-2.6) Urinalysis Test 08/15/24 08:29 Urine Color Light-yellow (Yellow) Urine Clarity Clear (Clear) Urine pH 6.0 (5.0-9.0) Urine Specific [place] 1.037 (1.001-1.035) Urine Protein Negative (Negative) Urine Ketones 2+ (Negative) H Urine Blood Negative /uL (Negative) Urine Nitrite Negative (Negative) Urine Bilirubin Negative (Negative) Urine Urobilinogen Normal mg/dL (Negative) Urine Leukocyte Esterase Negative /uL (Negative) Urine RBC <1 /hpf (0 - 3) Urine Microscopic WBC < 1 /HPF (0-3) Urine Squamous Epithelial Cells None seen /hpf (<5) Urine Bacteria None seen /hpf (None Seen) Urine Glucose 4+ mg/dL (Normal) H Assessment/Plan Assessment/Plan Bradycardia Atrial fibrillation, paroxysmal Community-acquired pneumonia Generalized weakness Type 2 diabetes Morbid obesity Hypertension Mixed hyperlipidemia History of CVA Asthma Plan IV antibiotics for the pneumonia Med neb treatments as needed Eliquis CT angiogram of the chest to rule out PE Lipitor Lisinopril Lyrica Cardiology consult Downgrade to telemetry since he is off the dopamine drip Monitor closely Full code Advance directives discussed for 15 minute 08/17/2024: IV antibiotics Rocephin and Zithromax Eliquis Oxygen as needed Keeping the hospital 1 more day We will check oxygen or room air tomorrow to see if he needs home O2 Monitor closely The rest of the management will depend on the hospital course For 06/2024: Continue the IV antibiotics for 1 more day Oxygen as needed Incentive spirometry Take him off the oxygen and check on room air Monitor closely in the hospital 1 more day discharge planning for tomorrow Plan discussed with: Patient My Orders Orders - JESSIE NORTON MD Procedure Category Date Status Time Incentive Spirometry ORDERS 08/18/24 Transmitted Q 1hr 14:12 Dietary NOTICE 08/18/24 Transmitted Recommendations 14:29 Date of Service: Aug 18, 2024 Billing Provider: JESSIE NORTON MD Common Visit Codes: [id number] INP/OBS CARE(HIGH) JESSIE NORTON MD Aug 18, 2024 15:38
[2024-08-18] MEDS: DOCUSATE SOD 100 MG CAP PO PRN (22:02)
--- NOTE | 2024-08-18 22:44 | DVHPN2 ---
Progress Note - Dictate Date Seen: Aug 18, 2024 Medical Necessity Reason Pt with a Central, PICC or Fol: No Subjective Patient seen and examined at bedside. Breathing comfortably on room air. Overnight events reviewed. vital signs Vital Sign Date Time Temp Pulse Resp B/P (MAP) Pulse Ox O2 Delivery O2 Flow Rate FiO2 08/18/24 21:00 97.5 58 17 97/62 (74) 95 97.5 08/18/24 20:00 Nasal Cannula* 2 28 Total Intake and Output 08/17/24 08/17/24 08/18/24 15:00 23:00 07:00 Intake Total 170 ml 1488 ml 500 ml Balance 170 ml 1488 ml 500 ml medications Current Medications Medications Dose Ordered Sig/James Route Start Time Stop Time Status Last Admin Dose Admin Ondansetron HCl 4 mg Q4HP PRN IV 08/15/24 09:15 Docusate Sodium 100 mg BIDPRN PRN PO 08/15/24 09:15 08/18/24 22:02 100 MG Morphine Sulfate 2 mg Q4HPRN PRN IV 08/15/24 09:15 Hold Nitroglycerin 0.4 mg Q5MINP PRN SL 08/15/24 09:15 Albuterol 2.5 mg Q4HPRN PRN NEB 08/15/24 09:15 08/16/24 22:26 2.5 MG Ipratropium [place] 0.5 mg Q4HPRN PRN NEB 08/15/24 09:15 08/16/24 22:26 0.5 MG Diagnostic Test (Pha) 1 strip ACHS 08/15/24 11:30 08/18/24 22:07 1 STRIP Insulin Human Regular HS SC 08/15/24 22:00 08/17/24 21:14 3 UNITS Insulin Human Regular AC SC 08/15/24 11:30 08/18/24 17:52 3 UNITS Dextrose 50 ml UD PRN IV 08/15/24 09:15 Cyclobenzaprine HCl 10 mg BID PO 08/15/24 10:00 08/18/24 22:04 10 MG Acetaminophen/ Hydrocodone Bitart 1 tab QID PRN PO 08/15/24 09:15 08/18/24 22:04 1 TAB Lisinopril 5 mg DAILY PO 08/15/24 10:00 08/18/24 09:20 5 MG Atorvastatin Calcium 5 mg HS PO 08/15/24 22:00 08/18/24 22:03 5 MG Pregabalin 100 mg BID PO 08/15/24 10:00 08/18/24 22:10 100 MG Apixaban 5 mg BID PO 08/15/24 10:00 08/18/24 22:04 5 MG Ceftriaxone Sodium 50 ml @ 100 mls/hr DAILY@09 IV 08/16/24 09:00 08/18/24 09:20 100 MLS/HR Azithromycin 250 ml @ 125 mls/hr DAILY IV 08/16/24 10:00 08/18/24 10:06 125 MLS/HR Morphine Sulfate 30 mg BID PO 08/15/24 10:30 08/18/24 09:21 30 MG objective Gen.: Patient lying in bed in no apparent distress. Breathing on room air. Head: Normocephalic, atraumatic. Eyes: EOMI/PERRLA. Ears: Normal hearing. Normal anatomy. Neck/trachea: Trachea midline, supple. Nose: Normal external anatomy. Mouth: Moist mucous membranes. Chest: Decreased air entry bilaterally. No wheezing or rhonchi. Cardiovascular: Positive S1, positive S2. Regular rate and rhythm. Abdomen: Positive bowel sounds in all 4 quadrants. Soft, non-tender, non- distended. : Deferred. Rectal: Deferred. Skin: Warm, dry. Intact. Extremities: 2+ radial pulses bilaterally. No lower extremity edema. Neuro: Awake, alert, oriented x3. No gross motor or sensory deficits. Cranial nerves II through XII intact. Gait not assessed. laboratory and microbiology Laboratory Tests 08/17/24 19:00 08/16/24 03:33 Test 08/16/24 03:33 Range/Units Serum Glucose 187 H 74-106 mg/dL Assessment/Plan Impression: Acute hypoxic respiratory failure Pneumonia, likely gram negative Pleural effusion Atelectasis Overweight, BMI 29.8 Events: Currently breathing on room air Supplemental oxygen PRN Improved O2 requirements Bronchodilators PRN Continue antibiotics Incentive spirometry On Eliquis BID Accu-Cheks, ISS Pain control Avoid oversedation Labs and imaging reviewed. Rest of plan as noted below. Plan: Supplemental oxygen PRN Titrate to keep O2 sats above 92%. Eliquis BID Continue antibiotics WBC within normal limits Follow up cultures Incentive spirometry Echo report reviewed - RVSP of 30 mmHg Cardiology recommendations appreciated Accu-Cheks, ISS. Monitor renal function. Monitor electrolytes. Supplement as necessary. Monitor ins and outs. Diet and lifestyle modifications for weight reduction DVT prophylaxis. Prognosis: Poor given patient's multiple co-morbidities. Rest of plan per hospitalist and other consultants. Thank you, Dr. Nieto, for allowing me to participate in this patient's care. Further recommendations will depend on the patient's clinical course. Please do not hesitate to contact me if you have any questions or concerns. This medical document was created using an electronic medical record system with [employer] dictation system. Although these documentations are being carefully reviewed, there may still be some phonetic and typographical changes. The errors are purely typographical, due to imperfection on the software program, and do not reflect any compromise in the patient's medical care. Dietary Evaluation Review Comments: 1) CCHO 75 gm + cardiac 2) Refer Mitochondrial Disorders Counselor on DC 3) Continue current plan of care Expected Outcomes/Goals: Pt will meet >75% estimated needs Fu 3-5 days Plan discussed with: Patient, Other (JOSE Espitia) DIANA IRBY MD Aug 18, 2024 22:44
[2024-08-19] VITALS (10 sets, daily range): BP systolic 100–119; BP diastolic 56–78; PULSE 54–75; RESP 15–21; TEMP 97.5–98.5; O2SAT 92–97
--- NOTE | 2024-08-19 07:03 | DVHPN2 ---
Progress Note - Dictate Date Seen: Aug 19, 2024 Medical Necessity Reason Pt with a Central, PICC or Fol: No vital signs Vital Sign Date Time Temp Pulse Resp B/P (MAP) Pulse Ox O2 Delivery O2 Flow Rate FiO2 08/19/24 05:00 54 18 116/56 (76) 97 08/18/24 21:00 97.5 97.5 08/18/24 20:00 Nasal Cannula* 2 28 Total Intake and Output 08/18/24 08/18/24 08/19/24 15:00 23:00 07:00 Intake Total 300 ml 1715 ml 1525 ml Output Total 550 ml 650 ml Balance 300 ml 1165 ml 875 ml medications Current Medications Medications Dose Ordered Sig/James Route Start Time Stop Time Status Last Admin Dose Admin Ondansetron HCl 4 mg Q4HP PRN IV 08/15/24 09:15 Docusate Sodium 100 mg BIDPRN PRN PO 08/15/24 09:15 08/18/24 22:02 100 MG Morphine Sulfate 2 mg Q4HPRN PRN IV 08/15/24 09:15 Hold Nitroglycerin 0.4 mg Q5MINP PRN SL 08/15/24 09:15 Albuterol 2.5 mg Q4HPRN PRN NEB 08/15/24 09:15 08/16/24 22:26 2.5 MG Ipratropium [place] 0.5 mg Q4HPRN PRN NEB 08/15/24 09:15 08/16/24 22:26 0.5 MG Diagnostic Test (Pha) 1 strip ACHS 08/15/24 11:30 08/19/24 05:50 1 STRIP Insulin Human Regular HS SC 08/15/24 22:00 08/18/24 22:00 4 UNITS Insulin Human Regular AC SC 08/15/24 11:30 08/19/24 05:43 3 UNITS Dextrose 50 ml UD PRN IV 08/15/24 09:15 Cyclobenzaprine HCl 10 mg BID PO 08/15/24 10:00 08/18/24 22:04 10 MG Acetaminophen/ Hydrocodone Bitart 1 tab QID PRN PO 08/15/24 09:15 08/19/24 06:00 1 TAB Lisinopril 5 mg DAILY PO 08/15/24 10:00 08/18/24 09:20 5 MG Atorvastatin Calcium 5 mg HS PO 08/15/24 22:00 08/18/24 22:03 5 MG Pregabalin 100 mg BID PO 08/15/24 10:00 08/18/24 22:10 100 MG Apixaban 5 mg BID PO 08/15/24 10:00 08/18/24 22:04 5 MG Ceftriaxone Sodium 50 ml @ 100 mls/hr DAILY@09 IV 08/16/24 09:00 08/18/24 09:20 100 MLS/HR Azithromycin 250 ml @ 125 mls/hr DAILY IV 08/16/24 10:00 08/18/24 10:06 125 MLS/HR Morphine Sulfate 30 mg BID PO 08/15/24 10:30 08/18/24 09:21 30 MG laboratory and microbiology Laboratory Tests 08/17/24 19:00 08/16/24 03:33 Test 08/16/24 03:33 Range/Units Serum Glucose 187 H 74-106 mg/dL Assessment/Plan Patient is a 64-year-old gentleman who presented to the hospital with not feeling well. Chart has mentioned chest pain. Patient himself denies any episode of chest pain. He did feel somewhat short of breath and feeling weak. Cardiology is involved for cardiac aspects of care. Patient is known to our practice from outside. Patient has stopped drinking alcohol and using weed around a week before presentation which could have contributed to the clinical picture? He does have history of noncompliance. He has been told that he has paroxysmal atrial fibrillation for which is on Eliquis as outpatient (not found in our evaluation as outpatient yet). Not in acute distress. No JVD. Mucosa is pink and wet. No carotid bruit. Lungs are clear to auscultation. Cardiac: Regular, bradycardic. Abdomen is soft. Bowel sound is positive. There is no gross mass/hepatomegaly. Extremities do not reveal edema. 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 He has been abusing alcohol and Cannabis up to around a week before presentation. Echocardiogram of October 2021 had revealed biatrial enlargement and ejection fraction of more than 60% Nuclear stress test (performed as outpatient) of August 03, 2024 had revealed normal perfusion and ejection fraction of 72% WBC: 13.1 - 9.7 Creatinine: 0.89 - 0.74 Potassium: 4.5 - 3.7 - 4.2 Troponin (high sensitive): 6 - 5 - 6 - 5 BNP: 100.81 TSH: 1.93 D-Dimer: 0.57 Urine toxicology was positive for opiates/cannabinoids Chest x-ray revealed: IMPRESSION: 1. Mild right basilar atelectasis or pneumonia. 2. Mild reactive airways disease. CTA of lungs revealed: IMPRESSION: No pulmonary embolism. No aortic aneurysm or dissection. Dilatation of the pulmonary trunk up to 35 mm. Correlate for pulmonary arterial hypertension. Patchy opacities of bilateral lower lobes and right middle lobe which may represent pneumonia in the right clinical setting versus atelectasis. Trace right-sided pleural effusion. Mild wall thickening of the esophagus and stomach. Correlate for possible mild esophagitis and gastritis respectively. EKG reveals sinus rhythm/sinus bradycardia with no ST-T changes Tele reveals sinus rhythm Echocardiogram revealed: Left ventricle: Mild concentric left ventricular hypertrophy was seen. LVEF was 60-65%. There was no gross wall motion abnormality. Right ventricle was normal-sized with normal systolic function. Both atria were mildly dilated. Aortic valve: Aortic valve was trileaflet. Mildly thickened and calcified aortic leaflets were seen. There was no aortic stenosis/insufficiency. There was trace mitral/tricuspid regurgitation. Pulmonary valve was not well visualized. Right ventricular systolic pressure was assessed around 30 mm Hg. There was no pericardial effusion. Patient is a 64-year-old gentleman who presented with generalized weakness. There is question about altered mental status. Denies any actual chest pains. We do have a recent negative nuclear stress test as outpatient. Presentation is not considered acute coronary syndrome. No indication for repeat ischemic workup is available. Patient is admitted with possible bronchitis/pneumonia. Patient did have mild bradycardia on presentation and and 2 point was started on dopamine. There is no indication for any pacemaker implantation at present time. Generalized weakness Bradycardia, sinus, mild Pneumonia, community-acquired Paroxysmal AFib (as per patient's old outside report) History of alcohol/cannabinoids abuse Questionable fall Diabetes mellitus Cardiac suggestion for management: Managed on telemetry Follow-up electrolytes and kidney function tests and correct abnormalities. Keep potassium above 4 and magnesium above 2 For now, continue full anticoagulation (Eliquis) Avoid bassem blocking agents Management of pneumonia as per primary team Lifestyle and risk factor modifications. Patient was counseled to avoid opiates/alcohol/cannabinoids/substance abuse No indication to repeat any ischemic workup at this time Cardiac [place], can be followed as outpatient Further evaluation and management depends on the above and clinical course A total of 55 minutes was spent reviewing the patient record, examining the patient, making a diagnostic and therapeutic plan, discussing this plan with medical personnel, following up on diagnostic studies and following the patient for clinical stability excluding any and all procedures. At least 50% of this time was spent in direct, [id number] contact. Thank you for allowing me to participate in this patient's care. Further recommendations will depend on patient's clinical course. Please do not hesitate to contact me if you have any questions or concerns. This medical document was created using electronic medical record system with [facility] computerized dictation system. Although this document has been carefully reviewed, there may still be some phonetic and typographical errors. These areas are purely typographical due to the imperfection of the software programs, and do not reflect any compromise in the patient's medical care Dietary Evaluation Review Comments: 1) CCHO 75 gm + cardiac 2) Refer Organic Lab Worker on DC 3) Continue current plan of care Expected Outcomes/Goals: Pt will meet >75% estimated needs Fu 3-5 days Plan discussed with: Patient, Other (nurse) DOMENICO MAHER MD Aug 19, 2024 07:03
--- NOTE | 2024-08-19 11:02 | DVHPN2 ---
Subjective Doing better He is still having some cough but is not productive He has wheezing Changes from previous H/P or p: Changes Eyes: No Pain, No Vision change, No Conjunctivae inflammation, No Eyelid inflammation, No Other, No Redness ENT: No Ear pain, No Ear discharge, No Nose pain, No Nose discharge, No Nose congestion, No Mouth pain, No Mouth swelling, No Throat pain, No Throat swelling, No Other Cardiovascular: Chest Pain; No Palpitations, No Orthopnea, No Paroxysmal Noc. Dyspnea, No Edema, No Lt Headedness, No Other Respiratory: No Cough, No Dry; Shortness of breath, SOB with excertion; No Wheezing, No Hemoptysis, No Pleuritic Pain, No Sputum, No Other Gastrointestinal: No Nausea, No Vomiting, No Abdominal Pain, No Diarrhea, No Constipation, No Melena, No Hematochezia, No Other Genitourinary: No Dysuria, No Frequency, No Incontinence, No Hematuria, No Retention, No Other Musculoskeletal: No other, No neck pain, No shoulder pain, No arm pain, No back pain, No hand pain, No leg pain, No foot pain Skin: No Rash, No Lesions, No Jaundice, No Bruising, No Other Objective Vitals Vital Signs Date Time Temp Pulse Resp B/P (MAP) Pulse Ox O2 Delivery O2 Flow Rate FiO2 08/19/24 10:07 119/77 08/19/24 09:00 98.5 75 21 93 98.5 08/19/24 06:41 Room Air* 0 21 Intake/Output Intake and Output 08/19/24 07:00 Intake Total 3540 ml Output Total 1200 ml Balance 2340 ml Intake Oral 3240 ml IV Total 300 ml Output Urine Total 1200 ml # Voids 3 General Appearance: Alert, Oriented X3, Cooperative Lungs: Clear to auscultation, Normal air movement Cardiovascular: Other (Irregularly irregular) Abdomen: Normal bowel sounds, Soft, No tenderness Extremities: No edema Medications Current Medications Medications Dose Ordered Sig/James Route Start Time Stop Time Status Last Admin Dose Admin Ondansetron HCl 4 mg Q4HP PRN IV 08/15/24 09:15 Docusate Sodium 100 mg BIDPRN PRN PO 08/15/24 09:15 08/18/24 22:02 100 MG Morphine Sulfate 2 mg Q4HPRN PRN IV 08/15/24 09:15 Hold Nitroglycerin 0.4 mg Q5MINP PRN SL 08/15/24 09:15 Albuterol 2.5 mg Q4HPRN PRN NEB 08/15/24 09:15 08/16/24 22:26 2.5 MG Ipratropium [place] 0.5 mg Q4HPRN PRN NEB 08/15/24 09:15 08/16/24 22:26 0.5 MG Diagnostic Test (Pha) 1 strip ACHS 08/15/24 11:30 08/19/24 05:50 1 STRIP Insulin Human Regular HS SC 08/15/24 22:00 08/18/24 22:00 4 UNITS Insulin Human Regular AC SC 08/15/24 11:30 08/19/24 05:43 3 UNITS Dextrose 50 ml UD PRN IV 08/15/24 09:15 Cyclobenzaprine HCl 10 mg BID PO 08/15/24 10:00 08/19/24 10:06 10 MG Acetaminophen/ Hydrocodone Bitart 1 tab QID PRN PO 08/15/24 09:15 08/19/24 06:00 1 TAB Lisinopril 5 mg DAILY PO 08/15/24 10:00 08/19/24 10:07 5 MG Atorvastatin Calcium 5 mg HS PO 08/15/24 22:00 08/18/24 22:03 5 MG Pregabalin 100 mg BID PO 08/15/24 10:00 08/19/24 10:14 100 MG Apixaban 5 mg BID PO 08/15/24 10:00 08/19/24 10:07 5 MG Ceftriaxone Sodium 50 ml @ 100 mls/hr DAILY@09 IV 08/16/24 09:00 08/19/24 10:05 100 MLS/HR Azithromycin 250 ml @ 125 mls/hr DAILY IV 08/16/24 10:00 08/19/24 10:48 125 MLS/HR Morphine Sulfate 30 mg BID PO 08/15/24 10:30 08/19/24 10:06 30 MG Laboratory Results Laboratory Tests 08/16/24 03:33 08/17/24 19:00 Urinalysis Test 08/15/24 08:29 Urine Color Light-yellow (Yellow) Urine Clarity Clear (Clear) Urine pH 6.0 (5.0-9.0) Urine Specific [place] 1.037 (1.001-1.035) Urine Protein Negative (Negative) Urine Ketones 2+ (Negative) H Urine Blood Negative /uL (Negative) Urine Nitrite Negative (Negative) Urine Bilirubin Negative (Negative) Urine Urobilinogen Normal mg/dL (Negative) Urine Leukocyte Esterase Negative /uL (Negative) Urine RBC <1 /hpf (0 - 3) Urine Microscopic WBC < 1 /HPF (0-3) Urine Squamous Epithelial Cells None seen /hpf (<5) Urine Bacteria None seen /hpf (None Seen) Urine Glucose 4+ mg/dL (Normal) H Assessment/Plan Assessment/Plan Bradycardia Atrial fibrillation, paroxysmal Community-acquired pneumonia Generalized weakness Type 2 diabetes Morbid obesity Hypertension Mixed hyperlipidemia History of CVA Asthma Plan IV antibiotics for the pneumonia Med neb treatments as needed Eliquis CT angiogram of the chest to rule out PE Lipitor Lisinopril Lyrica Cardiology consult Downgrade to telemetry since he is off the dopamine drip Monitor closely Full code Advance directives discussed for 15 minute 08/17/2024: IV antibiotics Rocephin and Zithromax Eliquis Oxygen as needed Keeping the hospital 1 more day We will check oxygen or room air tomorrow to see if he needs home O2 Monitor closely The rest of the management will depend on the hospital course 08/18/2024: Continue the IV antibiotics for 1 more day Oxygen as needed Incentive spirometry Take him off the oxygen and check on room air Monitor closely in the hospital 1 more day discharge planning for tomorrow 08/19/2024: Repeat a chest x-ray Continue the current management Incentive spirometry Oxygen as needed Out of bed as tolerated Continue the IV antibiotics Plan discussed with: Patient My Orders Orders - JESSIE NORTON MD Procedure Category Date Status Time Incentive Spirometry ORDERS 08/18/24 Transmitted Q 1hr 14:12 Dietary NOTICE 08/18/24 Transmitted Recommendations 14:29 Electrocardigram EKG 08/19/24 Logged 09:24 Electrocardigram EKG 08/19/24 Logged 09:24 Date of Service: Aug 19, 2024 Billing Provider: MAIKOL GONZALES Common Visit Codes: [id number] INP/OBS CARE(HIGH) JESSIE NORTON MD Aug 19, 2024 11:02
--- NOTE | 2024-08-19 13:04 | DVH ---
EXAM: XY CHEST PORTABLE Indication: pain, pneumonia Technique: Single frontal view of the chest was obtained Comparison: XY CHEST PORTABLE on DOS: 08/15/24, CHEST PORTABLE on DOS: 08/12/21, CXRP on DOS: 08/12/21 FINDINGS: Lines and Tubes: None Lungs: No focal consolidation. Pleura: No effusion. No pneumothorax. Cardiomediastinal contours: Unremarkable Bones: No acute osseous abnormality. IMPRESSION: No acute cardiopulmonary disease.
--- NOTE | 2024-08-19 14:52 | ECG ---
[facility] Test Date: 2024-08-17 Test Time: 17:03:50 Pat Name: CONSUELO CARLOS Department: Room: [facility]5T A Gender: M Manager Product Marketing: CHELSIE : 1960 Requested By: JESSIE NORTON Order Number: [id number] Reading MD: Jacob Camacho Measurements Intervals [place] Rate: 50 P: 0 ND: 154 QRS: -1 QRSD: 81 T: 0 QT: 577 QTc: 527 Interpretive Statements Sinus rhythm Borderline T abnormalities, diffuse leads Prolonged QT interval Electronically Signed On 08-20-2024 18:28:45 PDT by Jacob Camacho Please click the below link to view image of tracing.
--- NOTE | 2024-08-19 14:52 | ECG ---
[facility] Test Date: 2024-08-17 Test Time: 16:59:43 Pat Name: CONSUELO CARLOS Department: Room: [facility]5T A Gender: M Sheep Clipper: CHELSIE : 1960 Requested By: JESSIE NORTON Order Number: [id number] Reading MD: Jacob Camacho Measurements Intervals [place] Rate: 51 P: 156 OR: 154 QRS: -22 QRSD: 86 T: 0 QT: 612 QTc: 564 Interpretive Statements Sinus or ectopic atrial rhythm Borderline left axis deviation Nonspecific T abnormalities, lateral leads Prolonged QT interval Lead(s) II were not used for morphology analysis Electronically Signed On 08-20-2024 18:28:37 PDT by Jacob Camacho Please click the below link to view image of tracing.
--- NOTE | 2024-08-19 23:19 | DVHPN2 ---
Progress Note - Dictate Date Seen: Aug 19, 2024 Medical Necessity Reason Pt with a Central, PICC or Fol: No Subjective Patient seen and examined at bedside. Breathing comfortably on room air. Overnight events reviewed. vital signs Vital Sign Date Time Temp Pulse Resp B/P (MAP) Pulse Ox O2 Delivery O2 Flow Rate FiO2 08/19/24 21:00 97.5 55 111/74 (86) 93 97.5 08/19/24 17:00 19 08/19/24 10:00 Room Air 0.0 08/19/24 10:00 21 Total Intake and Output 08/18/24 08/18/24 08/19/24 15:00 23:00 07:00 Intake Total 300 ml 1715 ml 1525 ml Output Total 550 ml 650 ml Balance 300 ml 1165 ml 875 ml medications Current Medications Medications Dose Ordered Sig/James Route Start Time Stop Time Status Last Admin Dose Admin Ondansetron HCl 4 mg Q4HP PRN IV 08/15/24 09:15 Docusate Sodium 100 mg BIDPRN PRN PO 08/15/24 09:15 08/19/24 14:55 100 MG Morphine Sulfate 2 mg Q4HPRN PRN IV 08/15/24 09:15 Hold Nitroglycerin 0.4 mg Q5MINP PRN SL 08/15/24 09:15 Albuterol 2.5 mg Q4HPRN PRN NEB 08/15/24 09:15 08/16/24 22:26 2.5 MG Ipratropium [place] 0.5 mg Q4HPRN PRN NEB 08/15/24 09:15 08/16/24 22:26 0.5 MG Diagnostic Test (Pha) 1 strip ACHS 08/15/24 11:30 08/19/24 22:12 1 STRIP Insulin Human Regular HS SC 08/15/24 22:00 08/19/24 22:05 4 UNITS Insulin Human Regular AC SC 08/15/24 11:30 08/19/24 16:57 3 UNITS Dextrose 50 ml UD PRN IV 08/15/24 09:15 Cyclobenzaprine HCl 10 mg BID PO 08/15/24 10:00 08/19/24 22:06 10 MG Acetaminophen/ Hydrocodone Bitart 1 tab QID PRN PO 08/15/24 09:15 08/19/24 22:11 1 TAB Lisinopril 5 mg DAILY PO 08/15/24 10:00 08/19/24 10:07 5 MG Atorvastatin Calcium 5 mg HS PO 08/15/24 22:00 08/19/24 22:07 5 MG Pregabalin 100 mg BID PO 08/15/24 10:00 08/19/24 22:08 100 MG Apixaban 5 mg BID PO 08/15/24 10:00 08/19/24 22:06 5 MG Ceftriaxone Sodium 50 ml @ 100 mls/hr DAILY@09 IV 08/16/24 09:00 08/19/24 10:05 100 MLS/HR Azithromycin 250 ml @ 125 mls/hr DAILY IV 08/16/24 10:00 08/19/24 10:48 125 MLS/HR Morphine Sulfate 30 mg BID PO 08/15/24 10:30 08/19/24 10:06 30 MG objective Gen.: Patient lying in bed in no apparent distress. Breathing on room air. Head: Normocephalic, atraumatic. Eyes: EOMI/PERRLA. Ears: Normal hearing. Normal anatomy. Neck/trachea: Trachea midline, supple. Nose: Normal external anatomy. Mouth: Moist mucous membranes. Chest: Decreased air entry bilaterally. Expiratory wheezing. No rhonchi. Cardiovascular: Positive S1, positive S2. Regular rate and rhythm. Abdomen: Positive bowel sounds in all 4 quadrants. Soft, non-tender, non- distended. : Deferred. Rectal: Deferred. Skin: Warm, dry. Intact. Extremities: 2+ radial pulses bilaterally. No lower extremity edema. Neuro: Awake, alert, oriented x3. No gross motor or sensory deficits. Cranial nerves II through XII intact. Gait not assessed. laboratory and microbiology Laboratory Tests 08/17/24 19:00 08/16/24 03:33 Test 08/16/24 03:33 Range/Units Serum Glucose 187 H 74-106 mg/dL Assessment/Plan Impression: Acute hypoxic respiratory failure Pneumonia, likely gram negative Pleural effusion Atelectasis Overweight, BMI 29.8 Events: Remains on room air Supplemental oxygen PRN No new events. CXR shows no acute opacities, pleural effusion or pneumothorax Continue bronchodilators Continue antibiotics Incentive spirometry On Eliquis BID Accu-Cheks, ISS Pain control Avoid oversedation Disposition per hospitalist. Labs and imaging reviewed. Rest of plan as noted below. Plan: Supplemental oxygen PRN Titrate to keep O2 sats above 92%. Eliquis BID Continue antibiotics WBC within normal limits Follow up cultures Incentive spirometry Echo report reviewed - RVSP of 30 mmHg Cardiology recommendations appreciated Accu-Cheks, ISS. Monitor renal function. Monitor electrolytes. Supplement as necessary. Monitor ins and outs. Diet and lifestyle modifications for weight reduction DVT prophylaxis. Prognosis: Poor given patient's multiple co-morbidities. Rest of plan per hospitalist and other consultants. Thank you, Dr. Nieto, for allowing me to participate in this patient's care. Further recommendations will depend on the patient's clinical course. Please do not hesitate to contact me if you have any questions or concerns. This medical document was created using an electronic medical record system with [employer] dictation system. Although these documentations are being carefully reviewed, there may still be some phonetic and typographical changes. The errors are purely typographical, due to imperfection on the software program, and do not reflect any compromise in the patient's medical care. Dietary Evaluation Review Comments: 1) CCHO 75 gm + cardiac 2) Refer Lithostripper on DC 3) Continue current plan of care Expected Outcomes/Goals: Pt will meet >75% estimated needs Fu 3-5 days Plan discussed with: Patient, Other (RN) DIANA IRBY MD Aug 19, 2024 23:19
[2024-08-20] VITALS (14 sets, daily range): BP systolic 108–123; BP diastolic 52–84; PULSE 50–80; RESP 15–18; TEMP 97.4–98.1; O2SAT 93–98
--- NOTE | 2024-08-20 06:39 | DVHPN2 ---
Progress Note - Dictate Date Seen: Aug 20, 2024 Medical Necessity Reason Pt with a Central, PICC or Fol: No vital signs Vital Sign Date Time Temp Pulse Resp B/P (MAP) Pulse Ox O2 Delivery O2 Flow Rate FiO2 08/20/24 05:00 97.4 80 15 110/67 (81) 96 97.4 08/19/24 20:00 Room Air* 0 21 Total Intake and Output 08/19/24 08/19/24 08/20/24 15:00 23:00 07:00 Intake Total 300 ml 1800 ml 250 ml Balance 300 ml 1800 ml 250 ml medications Current Medications Medications Dose Ordered Sig/James Route Start Time Stop Time Status Last Admin Dose Admin Ondansetron HCl 4 mg Q4HP PRN IV 08/15/24 09:15 Docusate Sodium 100 mg BIDPRN PRN PO 08/15/24 09:15 08/19/24 14:55 100 MG Morphine Sulfate 2 mg Q4HPRN PRN IV 08/15/24 09:15 Hold Nitroglycerin 0.4 mg Q5MINP PRN SL 08/15/24 09:15 Albuterol 2.5 mg Q4HPRN PRN NEB 08/15/24 09:15 08/16/24 22:26 2.5 MG Ipratropium [place] 0.5 mg Q4HPRN PRN NEB 08/15/24 09:15 08/16/24 22:26 0.5 MG Diagnostic Test (Pha) 1 strip ACHS 08/15/24 11:30 08/20/24 05:32 1 STRIP Insulin Human Regular HS SC 08/15/24 22:00 08/19/24 22:05 4 UNITS Insulin Human Regular AC SC 08/15/24 11:30 08/20/24 05:38 2 UNITS Dextrose 50 ml UD PRN IV 08/15/24 09:15 Cyclobenzaprine HCl 10 mg BID PO 08/15/24 10:00 08/19/24 22:06 10 MG Acetaminophen/ Hydrocodone Bitart 1 tab QID PRN PO 08/15/24 09:15 08/20/24 05:33 1 TAB Lisinopril 5 mg DAILY PO 08/15/24 10:00 08/19/24 10:07 5 MG Atorvastatin Calcium 5 mg HS PO 08/15/24 22:00 08/19/24 22:07 5 MG Pregabalin 100 mg BID PO 08/15/24 10:00 08/19/24 22:08 100 MG Apixaban 5 mg BID PO 08/15/24 10:00 08/19/24 22:06 5 MG Ceftriaxone Sodium 50 ml @ 100 mls/hr DAILY@09 IV 08/16/24 09:00 08/19/24 10:05 100 MLS/HR Azithromycin 250 ml @ 125 mls/hr DAILY IV 08/16/24 10:00 08/19/24 10:48 125 MLS/HR Morphine Sulfate 30 mg BID PO 08/15/24 10:30 08/19/24 10:06 30 MG laboratory and microbiology Laboratory Tests 08/17/24 19:00 08/16/24 03:33 Test 08/16/24 03:33 Range/Units Serum Glucose 187 H 74-106 mg/dL Assessment/Plan Patient is a 64-year-old gentleman who presented to the hospital with not feeling well. Chart has mentioned chest pain. Patient himself denies any episode of chest pain. He did feel somewhat short of breath and feeling weak. Cardiology is involved for cardiac aspects of care. Patient is known to our practice from outside. Patient has stopped drinking alcohol and using weed around a week before presentation which could have contributed to the clinical picture? He does have history of noncompliance. He has been told that he has paroxysmal atrial fibrillation for which is on Eliquis as outpatient (not found in our evaluation as outpatient yet). Not in acute distress. No JVD. Mucosa is pink and wet. No carotid bruit. Lungs are clear to auscultation. Cardiac: Regular, bradycardic. Abdomen is soft. Bowel sound is positive. There is no gross mass/hepatomegaly. Extremities do not reveal edema. 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 He has been abusing alcohol and Cannabis up to around a week before presentation. Echocardiogram of October 2021 had revealed biatrial enlargement and ejection fraction of more than 60% Nuclear stress test (performed as outpatient) of August 03, 2024 had revealed normal perfusion and ejection fraction of 72% WBC: 13.1 - 9.7 Creatinine: 0.89 - 0.74 Potassium: 4.5 - 3.7 - 4.2 Troponin (high sensitive): 6 - 5 - 5 - 5 BNP: 100.81 TSH: 1.93 D-Dimer: 0.57 Urine toxicology was positive for opiates/cannabinoids Chest x-ray revealed: IMPRESSION: 1. Mild right basilar atelectasis or pneumonia. 2. Mild reactive airways disease. Repeat chest xry revealed: IMPRESSION: No acute cardiopulmonary disease. CTA of lungs revealed: IMPRESSION: No pulmonary embolism. No aortic aneurysm or dissection. Dilatation of the pulmonary trunk up to 35 mm. Correlate for pulmonary arterial hypertension. Patchy opacities of bilateral lower lobes and right middle lobe which may represent pneumonia in the right clinical setting versus atelectasis. Trace right-sided pleural effusion. Mild wall thickening of the esophagus and stomach. Correlate for possible mild esophagitis and gastritis respectively. EKG reveals sinus rhythm/sinus bradycardia with no ST-T changes Tele reveals sinus rhythm Echocardiogram revealed: Left ventricle: Mild concentric left ventricular hypertrophy was seen. LVEF was 60-65%. There was no gross wall motion abnormality. Right ventricle was normal-sized with normal systolic function. Both atria were mildly dilated. Aortic valve: Aortic valve was trileaflet. Mildly thickened and calcified aortic leaflets were seen. There was no aortic stenosis/insufficiency. There was trace mitral/tricuspid regurgitation. Pulmonary valve was not well visualized. Right ventricular systolic pressure was assessed around 30 mm Hg. There was no pericardial effusion. Patient is a 64-year-old gentleman who presented with generalized weakness. There is question about altered mental status. Denies any actual chest pains. We do have a recent negative nuclear stress test as outpatient. Presentation is not considered acute coronary syndrome. No indication for repeat ischemic workup is available. Patient is admitted with possible bronchitis/pneumonia. Patient did have mild bradycardia on presentation and and 2 point was started on dopamine. There is no indication for any pacemaker implantation at present time. Generalized weakness Bradycardia, sinus, mild Pneumonia, community-acquired Paroxysmal AFib (as per patient's old outside report) History of alcohol/cannabinoids abuse Questionable fall Diabetes mellitus Cardiac suggestion for management: Managed on telemetry Follow-up electrolytes and kidney function tests and correct abnormalities. Keep potassium above 4 and magnesium above 2 For now, continue full anticoagulation (Eliquis) Avoid bassem blocking agents Management of pneumonia as per primary team Lifestyle and risk factor modifications. Patient was counseled to avoid opiates/alcohol/cannabinoids/substance abuse No indication to repeat any ischemic workup at this time Cardiac [place], can be followed as outpatient Further evaluation and management depends on the above and clinical course A total of 55 minutes was spent reviewing the patient record, examining the patient, making a diagnostic and therapeutic plan, discussing this plan with medical personnel, following up on diagnostic studies and following the patient for clinical stability excluding any and all procedures. At least 50% of this time was spent in direct, [id number] contact. Thank you for allowing me to participate in this patient's care. Further recommendations will depend on patient's clinical course. Please do not hesitate to contact me if you have any questions or concerns. This medical document was created using electronic medical record system with [email or web address] computerized dictation system. Although this document has been carefully reviewed, there may still be some phonetic and typographical errors. These areas are purely typographical due to the imperfection of the software programs, and do not reflect any compromise in the patient's medical care Dietary Evaluation Review Comments: 1) CCHO 75 gm + cardiac 2) Refer Research Manager on DC 3) Continue current plan of care Expected Outcomes/Goals: Pt will meet >75% estimated needs Fu 3-5 days Plan discussed with: Patient, Other (nurse) DOMENICO MAHER MD Aug 20, 2024 06:39
[2024-08-20 07:04] LABS: Basophils # (auto) 0 10 ^3/uL (0-0.2); Basophils % (auto) 0.6 % (0.0-2.0); Eosinophils # (auto) 0.2 10 ^3/uL (0-0.8); Eosinophils % (auto) 2.9 % (0.0-7.0); Hematocrit 47.2 % (41.0-53.0); Hemoglobin 15.7 g/dL (13.5-17.5); Lymphocytes # (auto) 1.8 10 ^3/uL (0.4-5.4); Mean Corpuscular Hemoglobin 30.6 pg (28.0-32.0); Mean Corpuscular Hgb Conc. 33.2 g/dL (32.0-36.0); Mean Corpuscular Volume 92.2 fL (80.0-100.0); Monocytes # (auto) 0.9 10 ^3/uL (0-1.3); Monocytes % (auto) 11.1 % (0.0-12.0); Neutrophils # (auto) 5.2 10 ^3/uL (1.6-8.6); Neutrophils % (auto) 63.4 % (37.0-80.0); Platelet Count (auto) 187 10^3/uL (140-450); Red Blood Cells 5.12 10^6/uL (4.5-5.90); Red Cell Distribution Width 13.5 % (11.8-14.3); White Blood Cell 8.3 10^3/uL (4.4-10.8)
[2024-08-20 07:27] LABS: Alanine Aminotransferase 26 U/L (7-40); Albumin 4.2 g/dL (3.2-4.8); Alkaline Phosphatase 65 U/L (46-116); Anion Gap 6 (5-15); Aspartate Aminotransferase 23 U/L (13-40); BUN/Creatinine Ratio 14.6 (10.0-20.0); Bilirubin, Total 0.6 mg/dL (0.2-1.0); Blood Urea Nitrogen 12 mg/dL (9-23); Calcium 9.8 mg/dL (8.7-10.4); Carbon Dioxide 27 mmol/L (20-31); Chloride 101 mmol/L (98-107); Magnesium 1.7 mg/dL (1.6-2.6); Potassium 3.9 mmol/L (3.5-5.1); Total Protein 7.1 g/dL (5.7-8.2)
[2024-08-20 07:30] LABS: Glucose 157 mg/dL (74-106); Sodium 134 mmol/L (136-145)
[2024-08-20] MEDS ORDERED: CEFD300C2 PO (18:08)
[2024-08-21 01:00] VITALS: BP 101/68; PULSE 56; RESP 15; TEMP 97.8; O2SAT 95
[2024-08-21 05:00] VITALS: BP 108/72; PULSE 52; RESP 15; TEMP 97.5; O2SAT 95
[2024-08-21 07:56] VITALS: BP 117/72; PULSE 59; O2SAT 93
[2024-08-21 08:00] VITALS: PULSE 66; RESP 16; O2SAT 93
[2024-08-21 08:37] VITALS: BP 117/72; PULSE 59; RESP 16; TEMP 98.2; O2SAT 100
--- NOTE | 2024-08-21 09:15 | DVHPN2 ---
Progress Note - Dictate Date Seen: Aug 20, 2024 Medical Necessity Reason Pt with a Central, PICC or Fol: No Subjective Patient seen and examined at bedside. Breathing comfortably on room air. Overnight events reviewed. vital signs Vital Sign Date Time Temp Pulse Resp B/P (MAP) Pulse Ox O2 Delivery O2 Flow Rate FiO2 08/21/24 08:37 98.2 59 16 117/72 (87) 100 98.2 08/21/24 08:00 Room Air* 0 21 Total Intake and Output 08/20/24 08/20/24 08/21/24 15:00 23:00 07:00 Intake Total 300 ml 900 ml 800 ml Balance 300 ml 900 ml 800 ml medications Current Medications Medications Dose Ordered Sig/James Route Start Time Stop Time Status Last Admin Dose Admin Ondansetron HCl 4 mg Q4HP PRN IV 08/15/24 09:15 Docusate Sodium 100 mg BIDPRN PRN PO 08/15/24 09:15 08/19/24 14:55 100 MG Morphine Sulfate 2 mg Q4HPRN PRN IV 08/15/24 09:15 Hold Nitroglycerin 0.4 mg Q5MINP PRN SL 08/15/24 09:15 Albuterol 2.5 mg Q4HPRN PRN NEB 08/15/24 09:15 08/20/24 08:26 2.5 MG Ipratropium [place] 0.5 mg Q4HPRN PRN NEB 08/15/24 09:15 08/20/24 08:26 0.5 MG Diagnostic Test (Pha) 1 strip ACHS 08/15/24 11:30 08/21/24 06:59 1 STRIP Insulin Human Regular HS SC 08/15/24 22:00 08/20/24 22:20 4 UNITS Insulin Human Regular AC SC 08/15/24 11:30 08/21/24 07:19 3 UNITS Dextrose 50 ml UD PRN IV 08/15/24 09:15 Cyclobenzaprine HCl 10 mg BID PO 08/15/24 10:00 08/20/24 22:06 10 MG Acetaminophen/ Hydrocodone Bitart 1 tab QID PRN PO 08/15/24 09:15 08/21/24 05:59 1 TAB Lisinopril 5 mg DAILY PO 08/15/24 10:00 08/20/24 10:15 5 MG Atorvastatin Calcium 5 mg HS PO 08/15/24 22:00 08/20/24 22:06 5 MG Pregabalin 100 mg BID PO 08/15/24 10:00 08/20/24 22:06 100 MG Apixaban 5 mg BID PO 08/15/24 10:00 08/20/24 22:06 5 MG Ceftriaxone Sodium 50 ml @ 100 mls/hr DAILY@09 IV 08/16/24 09:00 08/20/24 10:10 100 MLS/HR Azithromycin 250 ml @ 125 mls/hr DAILY IV 08/16/24 10:00 08/20/24 11:46 125 MLS/HR Morphine Sulfate 30 mg BID PO 08/15/24 10:30 08/20/24 22:11 30 MG objective Gen.: Patient lying in bed in no apparent distress. Breathing on room air. Head: Normocephalic, atraumatic. Eyes: EOMI/PERRLA. Ears: Normal hearing. Normal anatomy. Neck/trachea: Trachea midline, supple. Nose: Normal external anatomy. Mouth: Moist mucous membranes. Chest: Decreased air entry bilaterally. Expiratory wheezing. No rhonchi. Cardiovascular: Positive S1, positive S2. Regular rate and rhythm. Abdomen: Positive bowel sounds in all 4 quadrants. Soft, non-tender, non- distended. : Deferred. Rectal: Deferred. Skin: Warm, dry. Intact. Extremities: 2+ radial pulses bilaterally. No lower extremity edema. Neuro: Awake, alert, oriented x3. No gross motor or sensory deficits. Cranial nerves II through XII intact. Gait not assessed. laboratory and microbiology Laboratory Tests 08/20/24 06:28 Test 08/20/24 06:28 Range/Units Serum Glucose 157 H 74-106 mg/dL Assessment/Plan Impression: Acute hypoxic respiratory failure Pneumonia, likely gram negative Pleural effusion Atelectasis Overweight, BMI 29.8 Events: Remains on room air Supplemental oxygen PRN Patient ambulates with no distress No new events. Continue bronchodilators Continue antibiotics Incentive spirometry On Eliquis BID Accu-Cheks, ISS Pain control Avoid oversedation Disposition per hospitalist. Labs and imaging reviewed. Rest of plan as noted below. Plan: Supplemental oxygen PRN Titrate to keep O2 sats above 92%. Eliquis BID Continue antibiotics WBC within normal limits Follow up cultures Incentive spirometry Echo report reviewed - RVSP of 30 mmHg Cardiology recommendations appreciated Accu-Cheks, ISS. Monitor renal function. Monitor electrolytes. Supplement as necessary. Monitor ins and outs. Diet and lifestyle modifications for weight reduction DVT prophylaxis. Prognosis: Poor given patient's multiple co-morbidities. Rest of plan per hospitalist and other consultants. Thank you, Dr. Nieto, for allowing me to participate in this patient's care. Further recommendations will depend on the patient's clinical course. Please do not hesitate to contact me if you have any questions or concerns. This medical document was created using an electronic medical record system with [employer] dictation system. Although these documentations are being carefully reviewed, there may still be some phonetic and typographical changes. The errors are purely typographical, due to imperfection on the software program, and do not reflect any compromise in the patient's medical care. Dietary Evaluation Review Comments: 1) CCHO 75 gm + cardiac 2) Refer [employer] Driver on DC 3) Continue current plan of care Expected Outcomes/Goals: Pt will meet >75% estimated needs Fu 3-5 days Plan discussed with: Patient, Other (RN) DIANA IRBY MD Aug 21, 2024 09:15
--- NOTE | 2024-08-21 16:10 | DVHDS2 ---
Discharge Summary Date of Admission Aug 15, 2024 at 09:05 Date of Discharge: Aug 21, 2024 Labs/Diagnostic Data: Laboratory Results Test 08/21/24 07:00 08/20/24 06:28 08/17/24 19:00 08/16/24 10:26 POC Glucose 197 mg/dl (70-106) White Blood Count 8.3 10^3/uL (4.4-10.8) Red Blood Count 5.12 10^6/uL (4.5-5.90) Hemoglobin 15.7 g/dL (13.5-17.5) Hematocrit 47.2 % (41.0-53.0) Mean Corpuscular Volume 92.2 fL (80.0-100.0) Mean Corpuscular Hemoglobin 30.6 pg (28.0-32.0) Mean Corpuscular Hemoglobin Concent 33.2 g/dL (32.0-36.0) Red Cell Distribution Width 13.5 % (11.8-14.3) Platelet Count 187 10^3/uL (140-450) Mean Platelet Volume 10.0 fL (6.9-10.8) Neutrophils (%) (Auto) 63.4 % (37.0-80.0) Lymphocytes (%) (Auto) 22.0 % (10.0-50.0) Monocytes (%) (Auto) 11.1 % (0.0-12.0) Eosinophils (%) (Auto) 2.9 % (0.0-7.0) Basophils (%) (Auto) 0.6 % (0.0-2.0) Neutrophils # (Auto) 5.2 10 ^3/uL (1.6-8.6) Lymphocytes # (Auto) 1.8 10 ^3/uL (0.4-5.4) Monocytes # (Auto) 0.9 10 ^3/uL (0-1.3) Eosinophils # (Auto) 0.2 10 ^3/uL (0-0.8) Basophils # (Auto) 0 10 ^3/uL (0-0.2) Nucleated Red Blood Cells 0.0 % Sodium Level 134 mmol/L (136-145) Potassium Level 3.9 mmol/L (3.5-5.1) Chloride Level 101 mmol/L (98-107) Carbon Dioxide Level 27 mmol/L (20-31) Anion Gap 6 (5-15) Blood Urea Nitrogen 12 mg/dL (9-23) Creatinine 0.82 mg/dL (0.700-1.30) Glomerular Filtration Rate Calc 99 mL/min (>90) BUN/Creatinine Ratio 14.6 (10.0-20.0) Serum Glucose 157 mg/dL (74-106) Calcium Level 9.8 mg/dL (8.7-10.4) Magnesium Level 1.7 mg/dL (1.6-2.6) Total Bilirubin 0.6 mg/dL (0.2-1.0) Aspartate Amino Transferase (AST) 23 U/L (13-40) Alanine Aminotransferase (ALT) 26 U/L (7-40) Alkaline Phosphatase 65 U/L (46-116) Total Protein 7.1 g/dL (5.7-8.2) Albumin 4.2 g/dL (3.2-4.8) Troponin I High Sensitivity 5 ng/L (</=54) D-Dimer, Quantitative 0.57 mg/L FEU (0.0-0.49) Test 08/15/24 08:29 08/15/24 07:25 Urine Color Light-yellow (Yellow) Urine Clarity Clear (Clear) Urine pH 6.0 (5.0-9.0) Urine Specific [place] 1.037 (1.001-1.035) Urine Protein Negative (Negative) Urine Ketones 2+ (Negative) Urine Blood Negative /uL (Negative) Urine Nitrite Negative (Negative) Urine Bilirubin Negative (Negative) Urine Urobilinogen Normal mg/dL (Negative) Urine Leukocyte Esterase Negative /uL (Negative) Urine RBC <1 /hpf (0 - 3) Urine Microscopic WBC < 1 /HPF (0-3) Urine Squamous Epithelial Cells None seen /hpf (<5) Urine Bacteria None seen /hpf (None Seen) Urine Glucose 4+ mg/dL (Normal) Urine Opiates Screen Pos (NEGATIVE) Urine Fentanyl Screen Neg (NEGATIVE) Urine Barbiturates Screen Neg (NEGATIVE) Urine Phencyclidine Screen Neg (NEGATIVE) Urine Amphetamines Screen Neg (NEGATIVE) Urine Benzodiazepines Screen Neg (NEGATIVE) Urine Cocaine Screen Neg (NEGATIVE) Urine Cannabinoids Screen Pos (NEGATIVE) Phosphorus Level 2.1 mg/dL (2.4-5.1) B-Type Natriuretic Peptide 100.81 pg/mL (0-100) Thyroid Stimulating Hormone (TSH) 1.93 uIU/mL (0.55-4.78) Plasma/Serum Blood Alcohol < 3.0 mg/dL (<10) Other Laboratory Tests 08/20/24 06:28 Brief Hx & Hospital Course: 84-year-old male who initially presented to the hospital with chief complaint of chest pain. Patient also complaining of heaviness in the chest associated with shortness of breaths and dizziness and palpitation. Patient's later that he had stopped drinking and smoking about three days ago. Patient does take Eliquis for AFib. Patient was found to have pneumonia. Patient was seen by Cardiology as well as Pulmonary. Patient was given IV antibiotics which will be switched to p.o. antibiotics. Patient is currently saturating normal more than 92% room air. And stable to be discharged. Condition at Discharge: Stable Final Diagnosis/Problems List Acute hypoxic respiratory failure currently on room air Pneumonia, likely gram negative Pleural effusion Atelectasis Overweight, BMI 29.8 Discharge Disposition: Home SNF Discharge Will this Physician continue t: No Discharge Instruct/Medications Diet: Cardiac 2g Na,low cholest Activity: No Restrictions, As Tolerated Follow Up/Referral: Follow up with the PCP, Pulmonary and Cardiology in 1-2 weeks Medications: Cefdinir as prescribed Discharge Statement: "Patient was advised to return to the ER or call 911 if any headaches, dizziness, shortness of breath, chest pain, abdominal pain, bleeding, fevers, or worsening of medical condition. Patient was counseled about treatment plan, medications, possible side effects, patientverbalized understanding. All questions were answered to the best of my ability. This discharge took greater then 30 minutes in planning, reviewing documentation, counseling the patient, and discussing with other team members." ASSESSMENT ASSESSMENT Assessment Acute hypoxic respiratory failure Pneumonia, likely gram negative Pleural effusion Atelectasis Overweight, BMI 29.8 Date of Service: Aug 20, 2024 Billing Provider: KANA HEAD MD Common Visit Codes: 79050-ISW/OBS DISCH DAY >30min KANA HEAD MD Aug 21, 2024 16:10
== END 2024-08-21 09:15 | disposition home or self-care (01) | DRG 137 ==
LOC: ER 07:12 → OVERFLOW 09:05 → TELE-WESTW 08-16 17:17
PROVIDERS: ADMIT Internal Medicine; ATTEND Internal Medicine
DX: J15.69 Pneumonia due to other Gram-negative bacteria (principal); J96.01 Acute respiratory failure with hypoxia; E11.40 Type 2 diabetes mellitus with diabetic neuropathy, unspecified; E66.01 Morbid (severe) obesity due to excess calories; E11.65 Type 2 diabetes mellitus with hyperglycemia; E78.2 Mixed hyperlipidemia; I11.9 Hypertensive heart disease without heart failure; I48.0 Paroxysmal atrial fibrillation; J45.909 Unspecified asthma, uncomplicated; Z68.29 Body mass index [BMI] 29.0-29.9, adult; K22.9 Disease of esophagus, unspecified; J98.11 Atelectasis; Z79.01 Long term (current) use of anticoagulants; Z88.1 Allergy status to other antibiotic agents; Z86.73 Personal history of transient ischemic attack (TIA), and cerebral infarction without residual deficits; Z82.49 Family history of ischemic heart disease and other diseases of the circulatory system; Z80.3 Family history of malignant neoplasm of breast; Z79.84 Long term (current) use of oral hypoglycemic drugs; Z83.3 Family history of diabetes mellitus; Z91.199 Patient's noncompliance with other medical treatment and regimen due to unspecified reason; Z99.81 Dependence on supplemental oxygen; Z79.899 Other long term (current) drug therapy
CPT/HCPCS: 36415; 71045; 71275; 80048; 80053; 80307; 80320; 81001; 82962; 83735; 83880; 84100; 84132; 84443; 84484; 85025; 85379; 93005; 93306; 94640; 94660; 96365; 96367; 99291; G0378; J1815; J7060

== ENCOUNTER 2024-11-01 13:03 | Inpatient (IN) | payer MEDICAID ==
[~2024-11-01] VITALS: Ht 210.8 cm; Wt 102.9 kg
[~2024-11-01 13:03] MED LIST changes: -BACDST PO; +CEFD300C2 PO; -CEPH500C PO; +CHOL20002 PO; +LID35TP TOP; +LIDO1.8P TOP; +MAGN241.4 PO; -METF-372; +METF-372 PO; +OMEP1CAP70 PO; +SITA100T7 PO; +ZOLP5TAB5 PO
--- NOTE | 2024-11-01 13:21 | ED.PDOC ---
History of Present Illness HPI Comments 64-year-old male presents with a chief complaint of bradycardia, dizziness, and diarrhea. Patient states that he was referred to the ER by his PCP, Dr. Bartlett. Patient reports that the dizziness began yesterday and describes it as "room is spinning" and is made worse with movement. Patient reports that he was first told that he had bradycardia back in July 2024. Patients HR was 40 prior to ER arrival. Time Seen by MD: 13:09 Primary Care Provider: NANCY Reviewed Notes: Medications, Allergies Allergies: Coded Allergies: Vancomycin (Verified Allergy, Severe, 07/19/17) Home Meds Active Scripts Cefdinir (Cefdinir) 300 Mg Cap, 1 CAP PO BID for 5 Days, #10 CAP Prov:KANA HEAD MD 08/20/24 Ftrimgko-Lmosjwntg-Dj (Otic) (Cortisporin Otic Soln) [address], 2 DROP OT BID for 3 Days, #3.5 DROP Prov:DOMENICO CAIN PAC 10/13/22 Reported Medications Morphine Sulfate (Morphine Sulfate Cr) 15 Mg Tab, 20 MG PO BID, #60 TAB 07/21/17 Lovastatin (Lovastatin) 10 Mg Tab, 10 MG PO HSMR1, TAB 07/21/17 Pregabalin (Lyrica) 100 Mg Cap, 1 CAP PO BID, #60 CAP 2 Refills 07/20/17 Lovastatin (Lovastatin) 10 Mg Tab, 10 MG PO HS, TAB 11/09/14 Cyclobenzaprine Hcl (Cyclobenzaprine Hcl) 10 Mg Tab, 10 MG PO BID, TAB 11/09/14 Hydrocodone-Acetaminophen ([place] 10/325MG) 1 Tab Tb, 1 TAB PO QID PRN for SEVERE PAIN, #90 TAB 11/09/14 Lisinopril (ZESTRIL TABLET) 5 Mg Tb, 1 TAB PO DAILY, #30 TAB 5 Refills 11/09/14 Metformin Hydrochloride (Metformin Hcl) 1,000 Mg Tab, BID 09/12/11 Information Source: Patient Mode of Arrival: Ambulatory Severity: Moderate Timing: Days Duration: Intermittent Prehospital treatment: None Past Medical History PAST MEDICAL HISTORY: AFIB, Asthma, CVA, DM, High Lipids, HTN, TIA Family History Family History: No family hx of DM, No family hx of HTN Social History Smoker: Non-Smoker Alcohol: Denies ETOH Use Drugs: Denies Drug Use Lives In: Home Constitutional: denies: chills, diaphoresis, fatigue, fever, malaise, sweats, weakness, others EENTM: denies: blurred vision, double vision, ear bleeding, ear discharge, ear drainage, ear pain, ear ringing, eye pain, eye redness, hearing loss, mouth pain, mouth swelling, nasal discharge, nose bleeding, nose congestion, nose pain, photophobia, tearing, throat pain, throat swelling, voice changes, others Respiratory: denies: cough, hemoptysis, orthopnea, SOB at rest, shortness of breath, SOB with excertion, stridor, wheezing, others Cardiovascular: reports: dizzy spells, irregular heart beat; denies: chest pain, diaphoresis, Dyspnea on exertion, edema, left arm pain, lightheadedness, palpitations, PND, syncope, others Gastrointestinal: reports: diarrhea; denies: abdomen distended, abdominal pain, blood streaked bowels, constipated, dysphagia, difficulty swallowing, hematemesis, melena, nausea, poor appetite, poor fluid intake, rectal bleeding, rectal pain, vomiting, others Genitourinary: denies: burning, dysuria, flank pain, frequency, hematuria, incontinence, penile discharge, penile sore, pain, testicle pain, testicle swelling, urgency, others Neurological: denies: dizziness, fainting, headache, left sided numbness, left sided weakness, numbness, paresthesia, pre-existing deficit, right sided numbness, right sided weakness, seizure, speech problems, tingling, tremors, weakness, others Musculoskeletal: denies: back pain, gout, joint pain, joint swelling, muscle pain, muscle stiffness, neck pain, others Integumetry: denies: bruises, change in color, change in hair/nails, dryness, laceration, lesions, lumps, rash, wounds, others Allergic/Immunocompromised: denies: Difficulty Healing, Frequent Infections, Hives, Itching, others Hematologic/Lymphatic: denies: anemia, blood clots, easy bleeding, easy bruising, swollen glands, others Endocrine: denies: excessive hunger, excessive sweating, excessive thirst, excessive urination, flushing, intolerance to cold, intolerance to heat, unexplained weight gain, unexplained weight loss, others Psychiatric: denies: anxiety, bipolar disorder, depression, hopeless, panic disorder, schizophrenia, sleepless, suicidal, others All Other Systems: Reviewed and Negative Physical Exam General Appearance: No Apparent Distress, Normal HEENT: Normal ENT Inspection, Pharynx Normal, TMs Normal Neck: Full Range of Motion, Non-Tender, Normal, Normal Inspection Respiratory: Chest Non-Tender, Lungs Clear, No Accessory Muscle Use, No Respir atory Distress, Normal Breath Sounds Cardiovascular: Bradycardia, No Edema, No JVD, No Murmur, No Gallop, Normal Peripheral Pulses Breast Exam: Deferred Gastrointestinal: No Organomegaly, Non Tender, No Pulsatile Mass, Normal Bowel Sounds, Soft Genitalia: Deferred Pelvic: Deferred Rectal: Deferred Extremities: No calf tenderness, Normal capillary refill, Normal inspection, Normal range of motion, Non-tender, No pedal edema Musculoskeletal : Apperance: Normal Neurologic: Alert, supervisor garage II-XII nml as Tested, No Motor Deficits, Normal Affect, Normal Mood, No Sensory Deficits Cerebellar Function: Normal Reflexes: Normal Skin: Dry, Normal Color, Warm Lymphatic: No Adenopathy Was a procedure done? Was a procedure done?: No Differential Dx Considerations may include: ACS, electrolyte abnormality, infectious etiology, cardiac arrhythmia, intracranial bleed X-Ray, Labs, Meds, VS Vital Signs Date Time Temp Pulse Resp B/P (MAP) Pulse Ox O2 Delivery O2 Flow Rate FiO2 11/01/24 14:49 98.7 48 16 134/60 (84) 97 98.7 11/01/24 14:49 48 16 97 Room Air 11/01/24 13:18 50 11/01/24 13:09 99.5 54 18 134/54 (80) 96 99.5 Lab Test 11/01/24 14:24 11/01/24 13:19 11/01/24 13:15 11/01/24 13:14 Range/Units Troponin I High Sensitivity 6 7 </=54 ng/L White Blood Count 9.7 4.4-10.8 10^3/uL Red Blood Count 5.17 4.5-5.90 10^6/uL Hemoglobin 16.0 13.5-17.5 g/dL Hematocrit 47.1 41.0-53.0 % Mean Corpuscular Volume 91.0 80.0-100.0 fL Mean Corpuscular Hemoglobin 31.0 28.0-32.0 pg Mean Corpuscular Hemoglobin Concent 34.1 32.0-36.0 g/dL Red Cell Distribution Width 13.9 11.8-14.3 % Platelet Count 203 140-450 10^3/uL Mean Platelet Volume 10.0 6.9-10.8 fL Neutrophils (%) (Auto) 74.3 37.0-80.0 % Lymphocytes (%) (Auto) 16.9 10.0-50.0 % Monocytes (%) (Auto) 7.7 0.0-12.0 % Eosinophils (%) (Auto) 0.8 0.0-7.0 % Basophils (%) (Auto) 0.3 0.0-2.0 % Neutrophils # (Auto) 7.2 1.6-8.6 10 ^3/uL Lymphocytes # (Auto) 1.6 0.4-5.4 10 ^3/uL Monocytes # (Auto) 0.7 0-1.3 10 ^3/uL Eosinophils # (Auto) 0.1 0-0.8 10 ^3/uL Basophils # (Auto) 0 0-0.2 10 ^3/uL Nucleated Red Blood Cells 0.0 % Sodium Level 139 136-145 mmol/L Potassium Level 4.2 3.5-5.1 mmol/L Chloride Level 105 98-107 mmol/L Carbon Dioxide Level 23 20-31 mmol/L Anion Gap 11 5-15 Blood Urea Nitrogen 14 9-23 mg/dL Creatinine 1.22 0.700-1.30 mg/dL Glomerular Filtration Rate Calc 67 >90 mL/min BUN/Creatinine Ratio 11.5 10.0-20.0 Serum Glucose 223 H 74-106 mg/dL Calcium Level 9.9 8.7-10.4 mg/dL B-Type Natriuretic Peptide 97.62 0-100 pg/mL Urine Color Light-yellow Yellow Urine Clarity Clear Clear Urine pH 5.0 5.0-9.0 Urine Specific [place] 1.036 H 1.001-1.035 Urine Protein Negative Negative Urine Ketones Negative Negative Urine Blood Negative Negative /uL Urine Nitrite Negative Negative Urine Bilirubin Negative Negative Urine Urobilinogen Normal Negative mg/dL Urine Leukocyte Esterase Negative Negative /uL Urine RBC 1 0 - 3 /hpf Urine Microscopic WBC < 1 0-3 /HPF Urine Squamous Epithelial Cells None seen <5 /hpf Urine Bacteria None seen None Seen /hpf Urine Glucose 4+ H Normal mg/dL POC Glucose 230 H 70-106 mg/dl Time of 1ST Reevaluation: 13:39 Reevaluation 1ST: Unchanged Patient Education/Counseling: Diagnosis, Treatment, Need For Follow Up Family Education/Counseling: No Family Present Departure 1 Departure Time of Disposition: 15:24 (Patient presented with near syncope today and should be admitted. Data: 1. I ordered and reviewed the result of at least 3 labs including a CBC, BMP, and troponin. 2. I independently interpreted the following tests: EKG which shows a sinus bradycardia and a chest x-ray which shows benign chest and a CT head which shows benign brain.Risk:This patient has a high risk of morbidity due to further diagnostic testing or treatment and may suffer from an acute cardiac, neurologic, or infectious disorder. Rationale: Patient should be admitted to the hospital for further management.) Impression: Primary Impression: Symptomatic bradycardia Additional Impressions: Generalized weakness Near syncope Disposition: 09 ADMITTED INPATIENT Admit to: Med Surg Condition: Guarded Critical Care Note Critical Care Time?: Yes Critical care comment: Symptomatic bradycardia Authorized and Performed by: Ibrahima Singleton MD Total critical care time: Approximately 44 minutes Due to a high probability of clinically significant, life threatening deterioration, the patient required my highest level of preparedness to intervene emergently and I personally spent this critical care time directly and personally managing the patient. This critical care time included obtaining a history; examining the patient; pulse oximetry; ordering and review of studies; arranging urgent treatment with development of a management plan; evaluation of patient's response to treatment; frequent reassessment; and, discussions with other providers. This critical care time was performed to assess and manage the high probability of imminent, life-threatening deterioration that could result in multi-organ failure. It was exclusive of separately billable procedures and treating other patients and teaching time. Please see my other sections and the rest of the note for further information on patient assessment and treatment. Stability Stability form required: No Heart Score Heart Score: Heart Score Response (Comments) Value History N/A 0 EKG N/A 0 Age N/A 0 Risk Factors N/A 0 Troponin N/A 0 Total 0 I personally scribed for IBRAHIMA SINGLETON MD ([email or web address]) on 11/01/24 at 13:21. Electronically submitted by Kushal Sorto ([email or web address]). IBRAHIMA SINGLETON MD Nov 01, 2024 13:21
[2024-11-01 13:39] LABS: Basophils # (auto) 0 10 ^3/uL (0-0.2); Basophils % (auto) 0.3 % (0.0-2.0); Eosinophils # (auto) 0.1 10 ^3/uL (0-0.8); Eosinophils % (auto) 0.8 % (0.0-7.0); Hematocrit 47.1 % (41.0-53.0); Lymphocytes # (auto) 1.6 10 ^3/uL (0.4-5.4); Lymphocytes % (auto) 16.9 % (10.0-50.0); Mean Corpuscular Hgb Conc. 34.1 g/dL (32.0-36.0); Monocytes # (auto) 0.7 10 ^3/uL (0-1.3); Monocytes % (auto) 7.7 % (0.0-12.0); Neutrophils # (auto) 7.2 10 ^3/uL (1.6-8.6); Neutrophils % (auto) 74.3 % (37.0-80.0); Platelet Count (auto) 203 10^3/uL (140-450); Red Blood Cells 5.17 10^6/uL (4.5-5.90); Red Cell Distribution Width 13.9 % (11.8-14.3); White Blood Cell 9.7 10^3/uL (4.4-10.8)
[2024-11-01 13:45] LABS: Chloride 105 mmol/L (98-107); Potassium 4.2 mmol/L (3.5-5.1); Sodium 139 mmol/L (136-145)
[2024-11-01 13:46] LABS: Anion Gap 11 (5-15); Carbon Dioxide 23 mmol/L (20-31)
[2024-11-01 13:47] LABS: Calcium 9.9 mg/dL (8.7-10.4)
[2024-11-01 13:52] LABS: BUN/Creatinine Ratio 11.5 (10.0-20.0); Blood Urea Nitrogen 14 mg/dL (9-23)
--- NOTE | 2024-11-01 13:55 | DVH ---
CHEST RADIOGRAPH Indication: near syncope Technique: Single frontal view of the chest was obtained COMPARISON: XY CHEST PORTABLE on DOS: 08/19/24, XY CHEST PORTABLE on DOS: 08/15/24, CHEST PORTABLE on DO S: 08/12/21, CXRP on DOS: 08/12/21 FINDINGS: Lines and Tubes: Thoracic spinal stimulator device in-situ. Lungs: Clear Pleura: No effusion. No pneumothorax. Cardiomediastinal contours: Unremarkable Bones: Unremarkable IMPRESSION: No acute disease.
[2024-11-01 13:59] LABS: Glucose 223 mg/dL (74-106)
--- NOTE | 2024-11-01 14:08 | DVH ---
EXAM: CT HEAD WITHOUT CONTRAST HISTORY: near syncope COMPARISON: None TECHNIQUE: Axial images of the head were obtained and reformatted in coronal and sagittal planes. All CT scans at this medical facility are performed using dose modulation techniques as appropriate t o a performed exam including the following: Automated exposure control was utilized; adjustment of th e MA and/or KV according to patient size; and use of iterative reconstruction technique. CT Dose: CTDI volume is 55 mGy. Dose-length product is 981 mGy*cm FINDINGS: There is no evidence of acute intracranial hemorrhage, mass, mass effect midline shift. There is no h ydrocephalus or extra-axial fluid collection. Falcon-white matter differentiation is maintained. The visualized paranasal sinuses and mastoid air cells are clear. The calvarium is intact. IMPRESSION: 1. No acute intracranial process. HS:Y
[2024-11-01 14:13] LABS: Urine Bacteria None Seen /hpf (None Seen)
[2024-11-01 14:26] LABS: Urine Blood Negative /uL (Negative); Urine Clarity Clear (Clear); Urine Color Light-Yellow (Yellow); Urine Protein, UAD Negative (Negative); Urine Specific Gravity 1.036 (1.001-1.035); Urine Squamous Epithelial Cell None Seen /hpf (<5); Urine Urobilinogen Normal (Negative); Urine WBC < 1 /HPF (0-3)
[2024-11-01] MEDS ORDERED: ACETAMINOPHEN 325 MG TAB PO PRN (19:15)
[2024-11-01] MEDS: SODIUM CHLORIDE 0.9% 1,000 ML IV ONE (19:15)
[2024-11-01] MEDS ORDERED: MORPHINE SULFATE INJ 2 MG/ml SYRG IV PRN (19:15)
[2024-11-01] MEDS ORDERED: NITROGLYCERIN 0.4 MG SL TAB SL PRN (19:15)
[2024-11-01 19:30] LABS: LDL Cholesterol 63 mg/dL (< 100)
[2024-11-01 19:32] LABS: Cholesterol 170 mg/dL (< 200); HDL Cholesterol 48 mg/dL (40-59)
--- NOTE | 2024-11-01 19:33 | DVHHPRES ---
History of Present Illness Resident Creating Document: ERNESTO BROOKS History of Present Illness This is a 64-year-old male with past medical history of AFib, asthma, CVA, type 2 diabetes mellitus, dyslipidemia, hypertension, TIA who presented to the ED due to dizziness. The patient states that he started feeling dizzy but there was no loss of consciousness at any time. Patient reports that this morning before coming to the ED he had an appointment with his PCP Dr. Bartlett, at that time he started feeling dizzy and weak, during the consult they checked his blood pressure and pulse and he was having significant bradycardia in the 40s. His PCP referred him to the ED for further assessment and management of symptomatic bradycardia which he has been dealing with it for months. The patient also reported feeling minimal chest discomfort and mild shortness of breath during the episode of dizziness. The patient denies fever/chills, abdominal pain, vertigo or any other associated symptoms. Upon admission, CBC and BMP were grossly unremarkable. BNP was normal range and troponins came back negative. EKG was reviewed which showed sinus bradycardia at 50s with no significant AV blockage. Chest x-ray was grossly unremarkable without any evidence of consolidations and head CT was unremarkable as well. We will consult Cardiology for further assessment of symptomatic bradycardia to determine the possibility of a pacemaker. We will admit the patient for further assessment and management. Past medical history: AFib, asthma, CVA, type 2 diabetes mellitus, dyslipidemia, hypertension, TIA Home medications: Eliquis 5 mg b.i.d., [place], Jardiance 25mg qd , metformin 1000 mg b.i.d., lisinopril 5 mg daily, lovastatin 10 mg daily, Januvia 100mg qd Surgical history: Right-sided orchiectomy, spinal cord stimulators, tonsillectomy, left elbow surgery Social history: Patient reports smoking marijuana occasionally as well as alcohol. Quit smoking long time ago Review of Systems Constitutional: Yes: Weakness, Other (Dizziness); No: Fever, Chills, Sweats, Malaise Eyes: No: Pain, Vision change, Conjunctivae inflammation, Eyelid inflammation, Other, Redness ENT: No: Ear pain, Ear discharge, Nose pain, Nose discharge, Nose congestion, Mouth pain, Mouth swelling, Throat pain, Throat swelling, Other Respiratory: SOB with excertion; No: Cough, Dry, Shortness of breath, Wheezing, Hemoptysis, Pleuritic Pain, Sputum, Wheezing, Other Cardiovascular: Chest Pain; No: Palpitations, Orthopnea, Paroxysmal Noc. Dyspnea, Edema, Lt Headedness, Other Gastrointestinal: No: Nausea, Vomiting, Abdominal Pain, Diarrhea, Constipation, Melena, Hematochezia, Other Genitourinary: No Dysuria, No Frequency, No Incontinence, No Hematuria, No Retention, No Other Musculoskeletal: No: other, neck pain, shoulder pain, arm pain, back pain, hand pain, leg pain, foot pain Skin: No: Rash, Lesions, Jaundice, Bruising, Other Neurological: No: Weakness, Numbness, Incoordination, Change in speech, Confusion, Seizures, Other Allergies: Coded Allergies: Vancomycin (Verified Allergy, Severe, 07/19/17) Medications Current Medications Medications Dose Ordered Sig/James Route Start Time Stop Time Status Last Admin Dose Admin Nitroglycerin 0.4 mg Q5MINP PRN SL 11/01/24 19:15 UNV Morphine Sulfate 2 mg Q30M PRN IV 11/01/24 19:15 UNV Acetaminophen 650 mg Q6HP PRN PO 11/01/24 19:15 UNV Acetaminophen/ Hydrocodone Bitart 1 tab Q4HP PRN PO 11/01/24 19:15 UNV Exam Vital Signs Vital Signs Date Time Temp Pulse Resp B/P (MAP) Pulse Ox O2 Delivery O2 Flow Rate FiO2 11/01/24 18:50 50 11/01/24 17:20 98.7 16 128/66 (86) 99 98.7 11/01/24 14:49 Room Air General Appearance: Alert, Oriented X3, Cooperative, No acute distress HEENT: Atraumatic, PERRLA, EOMI, Mucous membr. moist/pink Respiratory: Clear to auscultation, Normal air movement Cardiovascular: Regular rate, Normal S1, Normal S2, No murmurs, Other (Bradycardic heart sounds) Abdominal: Normal bowel sounds, Soft, No tenderness, No hepatospenomegaly Extremities: No clubbing, No cyanosis, No edema, Normal pulses, No tenderness/swelling Skin: No rashes, No breakdown, No significant lesion Neuro: Normal gait, Normal speech, Strength at 5/5 X4 ext, Normal tone, Sensation intact, Cranial nerves 3-12 NL, Reflexes 2+ Psych/Mental Status: Mental status NL, Mood NL Labs/Xrays Labs Test 11/01/24 14:24 11/01/24 13:19 11/01/24 13:15 11/01/24 13:14 Range/Units Troponin I High Sensitivity 6 </=54 ng/L White Blood Count 9.7 4.4-10.8 10^3/uL Red Blood Count 5.17 4.5-5.90 10^6/uL Hemoglobin 16.0 13.5-17.5 g/dL Hematocrit 47.1 41.0-53.0 % Mean Corpuscular Volume 91.0 80.0-100.0 fL Mean Corpuscular Hemoglobin 31.0 28.0-32.0 pg Mean Corpuscular Hemoglobin Concent 34.1 32.0-36.0 g/dL Red Cell Distribution Width 13.9 11.8-14.3 % Platelet Count 203 140-450 10^3/uL Mean Platelet Volume 10.0 6.9-10.8 fL Neutrophils (%) (Auto) 74.3 37.0-80.0 % Lymphocytes (%) (Auto) 16.9 10.0-50.0 % Monocytes (%) (Auto) 7.7 0.0-12.0 % Eosinophils (%) (Auto) 0.8 0.0-7.0 % Basophils (%) (Auto) 0.3 0.0-2.0 % Neutrophils # (Auto) 7.2 1.6-8.6 10 ^3/uL Lymphocytes # (Auto) 1.6 0.4-5.4 10 ^3/uL Monocytes # (Auto) 0.7 0-1.3 10 ^3/uL Eosinophils # (Auto) 0.1 0-0.8 10 ^3/uL Basophils # (Auto) 0 0-0.2 10 ^3/uL Nucleated Red Blood Cells 0.0 % Sodium Level 139 136-145 mmol/L Potassium Level 4.2 3.5-5.1 mmol/L Chloride Level 105 98-107 mmol/L Carbon Dioxide Level 23 20-31 mmol/L Anion Gap 11 5-15 Blood Urea Nitrogen 14 9-23 mg/dL Creatinine 1.22 0.700-1.30 mg/dL Glomerular Filtration Rate Calc 67 >90 mL/min BUN/Creatinine Ratio 11.5 10.0-20.0 Serum Glucose 223 H 74-106 mg/dL Calcium Level 9.9 8.7-10.4 mg/dL B-Type Natriuretic Peptide 97.62 0-100 pg/mL Urine Color Light-yellow Yellow Urine Clarity Clear Clear Urine pH 5.0 5.0-9.0 Urine Specific [place] 1.036 H 1.001-1.035 Urine Protein Negative Negative Urine Ketones Negative Negative Urine Blood Negative Negative /uL Urine Nitrite Negative Negative Urine Bilirubin Negative Negative Urine Urobilinogen Normal Negative mg/dL Urine Leukocyte Esterase Negative Negative /uL Urine RBC 1 0 - 3 /hpf Urine Microscopic WBC < 1 0-3 /HPF Urine Squamous Epithelial Cells None seen <5 /hpf Urine Bacteria None seen None Seen /hpf Urine Glucose 4+ H Normal mg/dL POC Glucose 230 H 70-106 mg/dl Assessment/Plan Assessment/Plan Assessment/plan Dizziness likely due to symptomatic bradycardia Acute symptomatic bradycardia SANTINO likely due to vasomotor nephropathy Paroxysmal atrial fibrillation Type 2 diabetes mellitus Primary hypertension Dyslipidemia History of TIA and CVA Plan -EKG showed sinus bradycardia at 50s with no evident AV blocks -current monitor showing bradycardia ranging between 40-45s -discontinue any AV blocking agent. Patient denies taking any beta-katy or calcium channel blockers. -consult cardiology for symptomatic bradycardia and assessment of possibility of pacemaker placement -Start enoxaparin therapeutic dose for afib (hold apixaban), in case pacemaker needs to be placed -Consider transcutaneous pacing if HR <40 -IV fluids 500cc bolus, then cont at 75cc/hr -Cardiac diet -Will check TSH and FT4 Goals of care discussed with the patient at bedside for >35min, FULL CODE Plan discussed with Dr. Brito Plan discussed with: Patient My Orders Orders - ERNESTO BROOKS Procedure Category Date Status Time Admit ADMIT 11/01/24 Transmitted 19:06 Code Status CODE 11/01/24 Transmitted 19:06 Vital Signs GEO 11/01/24 In Process 19:06 Review Orders With GEO 11/01/24 In Process Adm. 19:06 Encourage Activity As GEO 11/01/24 In Process Tolerate 19:06 Acetaminophen Tablet PHA 11/01/24 Logged (Tylenol Tablet) 19:15 Notify Of Changes GEO 11/01/24 In Process From Base 19:06 Advance Directive GEO 11/01/24 In Process 19:06 Echo 2d Mode Cardiac US 11/01/24 Logged DOP 19:06 Basic Metabolic Panel LAB 11/02/24 Verified 04:00 Urinalysis LAB 11/01/24 Logged 19:06 Complete Blood Count LAB 11/02/24 Verified 04:00 Lipid Panel LAB 11/01/24 Logged 19:06 Patient Condition ORDERS 11/01/24 Transmitted 19:06 Allergies GEO 11/01/24 In Process 19:06 Hydrocodone-Acet PHA 11/01/24 Logged 5/325mg Tab ([place] 19:15 Drug Screen LAB 11/01/24 Logged 19:06 Hemoglobin A1c LAB 11/01/24 Logged 19:06 Date of Service: Nov 01, 2024 Billing Provider: QUINCY BRITO MD Common Visit Codes: 91600-MLCCRPR INP/OBS CARE (HIGH) Secondary Visit Codes: 62045-[id number] CARE PLAN 30 MINUTES ERNESTO BROOKS RESIDENT Nov 01, 2024 19:33
[2024-11-01 19:44] VITALS: PULSE 53; O2SAT 96
[2024-11-01 19:45] LABS: Triglycerides 321 mg/dL (< 150)
[2024-11-01] MEDS: SODIUM CHLORIDE 0.9% 500 ML IV ONE (20:41)
[2024-11-01 20:51] LABS: Rapid Influenza A Negative (Negative); Rapid Influenza B Negative (Negative)
[2024-11-01 20:52] LABS: COVID19 ANTIGEN SOFIA FIA NEGATIVE (NEGATIVE)
[2024-11-01 21:13] LABS: Amphetamine Screen, Urine Neg (NEGATIVE)
[2024-11-01 21:14] LABS: Barbiturate Scree,Urine Neg (NEGATIVE); Benzodiazephine Screen, Urine Neg (NEGATIVE); Cannabinoid Screen, Urine Pos (NEGATIVE); Cocaine Screen, Urine Neg (NEGATIVE); Opiate Scree,Urine Pos (NEGATIVE); Phencyclidine Screen, Urine Neg (NEGATIVE)
[2024-11-01] MEDS: HYDROcodone-ACET 5/325MG TAB PO PRN (21:46)
[2024-11-01 21:54] VITALS: BP 135/69; PULSE 47; RESP 18; TEMP 97.6; O2SAT 95
[2024-11-01] MEDS: ENOXAPARIN SOD 100 MG/1 ML SYRINGE SC SCH (23:04)
[2024-11-01 23:09] VITALS: BP 141/77; PULSE 66; RESP 18; TEMP 97.6; O2SAT 95
--- NOTE | 2024-11-01 23:42 | DVHINCON2 ---
Date of service: Nov 01, 2024 Referring Physician Shaista Reason for Consultation Bradycardia History of Present Illness This is a 64 year old male with a PMH of AFIB, Asthma, CVA, DM, High Lipids, HTN, TIA who presented to the ED with complaints of bradycardia, dizziness, and diarrhea. Patient states that he was referred to the ER by his PCP, Dr. Bartlett. Patient reports that the dizziness began yesterday and describes it as "room spinning sensation" and is made worse with movement. Patient reports that he was first told that he had bradycardia back in July 2024. Patients HR was 40 prior earlier today. EKG showed sinus bradycardia at 50s. Chest x-ray shows NAD. CT head shows no acute intracranial process.CBC unremarkable. Gluc elevated in the 200s. Troponin is negative. Patient was admitted to the hospital. I am asked to consult on this patient. Family History: Cancer G8 MOTHER, FH: breast cancer G8 MOTHER, Family history: Cardiovascular disease G8 FATHER, Family history: Diabetes mellitus G8 MOTHER, Family history: Hypertension G8 FATHER, Allergies: Coded Allergies: Vancomycin (Verified Allergy, Severe, 07/19/17) Home Meds Active Scripts Cefdinir (Cefdinir) 300 Mg Cap, 1 CAP PO BID for 5 Days, #10 CAP Prov:KANA HEAD MD 08/20/24 [id number] (Otic) (Cortisporin Otic Soln) [address], 2 DROP OT BID for 3 Days, #3.5 DROP Prov:DOMENICO CAIN PAC 10/13/22 Reported Medications Morphine Sulfate (Morphine Sulfate Cr) 15 Mg Tab, 20 MG PO BID, #60 TAB 07/21/17 Lovastatin (Lovastatin) 10 Mg Tab, 10 MG PO HSMR1, TAB 07/21/17 Pregabalin (Lyrica) 100 Mg Cap, 1 CAP PO BID, #60 CAP 2 Refills 07/20/17 Lovastatin (Lovastatin) 10 Mg Tab, 10 MG PO HS, TAB 11/09/14 Cyclobenzaprine Hcl (Cyclobenzaprine Hcl) 10 Mg Tab, 10 MG PO BID, TAB 11/09/14 Hydrocodone-Acetaminophen ([place] 10/325MG) 1 Tab Tb, 1 TAB PO QID PRN for SEVERE PAIN, #90 TAB 11/09/14 Lisinopril (ZESTRIL TABLET) 5 Mg Tb, 1 TAB PO DAILY, #30 TAB 5 Refills 11/09/14 Metformin Hydrochloride (Metformin Hcl) 1,000 Mg Tab, BID 09/12/11 Current Medications Current Medications Medications (Trade) Dose Ordered Sig/James Route PRN Reason Start Time Stop Time Status Last Admin Nitroglycerin (Ntrostat Sublingual) 0.4 mg Q5MINP PRN SL FOR CHEST PAIN 11/01/24 19:15 Morphine Sulfate 2 mg Q30M PRN IV FOR CHEST PAIN 11/01/24 19:15 Acetaminophen (Tylenol Tablet) 650 mg Q6HP PRN PO PAIN SCALE 1-3 OR TEMP>100.4 11/01/24 19:15 Acetaminophen/ Hydrocodone Bitart ([place] 5/325MG Tab) 1 tab Q4HP PRN PO MODERATE PAIN (4-6 PAIN SCALE) 11/01/24 19:15 11/01/24 21:46 Enoxaparin Sodium (Lovenox) 100 mg Q12HR SC 11/01/24 22:00 11/01/24 23:04 Lisinopril (Zestril Tablet) 5 mg DAILY PO 11/02/24 10:00 Atorvastatin Calcium (Lipitor) 20 mg DAILY PO 11/02/24 10:00 Review of Systems Constitutional: Yes: Weakness, Other (Dizziness); No: Fever, Chills, Sweats, Malaise Eyes: No: Pain, Vision change, Conjunctivae inflammation, Eyelid inflammation, Other, Redness ENT: No: Ear pain, Ear discharge, Nose pain, Nose discharge, Nose congestion, Mouth pain, Mouth swelling, Throat pain, Throat swelling, Other Respiratory: SOB with excertion; No: Cough, Dry, Shortness of breath, Wheezing, Hemoptysis, Pleuritic Pain, Sputum, Wheezing, Other Cardiovascular: Chest Pain; No: Palpitations, Orthopnea, Paroxysmal Noc. Dyspne a, Edema, Lt Headedness, Other Gastrointestinal: No: Nausea, Vomiting, Abdominal Pain, Diarrhea, Constipation, Melena, Hematochezia, Other Genitourinary: No Dysuria, No Frequency, No Incontinence, No Hematuria, No Retention, No Other Musculoskeletal: No: other, neck pain, shoulder pain, arm pain, back pain, hand pain, leg pain, foot pain Skin: No: Rash, Lesions, Jaundice, Bruising, Other Neurological: No: Weakness, Numbness, Incoordination, Change in speech, Confusion, Seizures, Other Vital Signs Vital Signs Date Time Temp Pulse Resp B/P (MAP) Pulse Ox O2 Delivery O2 Flow Rate FiO2 11/01/24 21:55 77 18 141/77 (98) 93 11/01/24 21:54 97.6 97.6 11/01/24 19:44 Room Air* 0 21 Physical Exam GENERAL: Alert and oriented x 3. No acute distress. EYES: PERRL, EOMI. Anicteric. HENT: Moist mucous membranes. LUNGS: Clear to auscultation bilaterally. CARDIOVASCULAR: Regular rate and rhythm. ABDOMEN: Soft, non-tender and non-distended. EXTREMITIES: No edema. NEUROLOGIC: No focal neurological deficits. SKIN: Warm, dry. Labs/Diagnostic Data Labs Test 11/01/24 20:16 11/01/24 14:24 11/01/24 13:19 11/01/24 13:15 Range/Units Influenza Type A Antigen Negative Negative Influenza Type B Antigen Negative Negative SARS-CoV-2 Antigen (Rapid) Negative NEGATIVE Troponin I High Sensitivity 6 </=54 ng/L White Blood Count 9.7 4.4-10.8 10^3/uL Red Blood Count 5.17 4.5-5.90 10^6/uL Hemoglobin 16.0 13.5-17.5 g/dL Hematocrit 47.1 41.0-53.0 % Mean Corpuscular Volume 91.0 80.0-100.0 fL Mean Corpuscular Hemoglobin 31.0 28.0-32.0 pg Mean Corpuscular Hemoglobin Concent 34.1 32.0-36.0 g/dL Red Cell Distribution Width 13.9 11.8-14.3 % Platelet Count 203 140-450 10^3/uL Mean Platelet Volume 10.0 6.9-10.8 fL Neutrophils (%) (Auto) 74.3 37.0-80.0 % Lymphocytes (%) (Auto) 16.9 10.0-50.0 % Monocytes (%) (Auto) 7.7 0.0-12.0 % Eosinophils (%) (Auto) 0.8 0.0-7.0 % Basophils (%) (Auto) 0.3 0.0-2.0 % Neutrophils # (Auto) 7.2 1.6-8.6 10 ^3/uL Lymphocytes # (Auto) 1.6 0.4-5.4 10 ^3/uL Monocytes # (Auto) 0.7 0-1.3 10 ^3/uL Eosinophils # (Auto) 0.1 0-0.8 10 ^3/uL Basophils # (Auto) 0 0-0.2 10 ^3/uL Nucleated Red Blood Cells 0.0 % Sodium Level 139 136-145 mmol/L Potassium Level 4.2 3.5-5.1 mmol/L Chloride Level 105 98-107 mmol/L Carbon Dioxide Level 23 20-31 mmol/L Anion Gap 11 5-15 Blood Urea Nitrogen 14 9-23 mg/dL Creatinine 1.22 0.700-1.30 mg/dL Glomerular Filtration Rate Calc 67 >90 mL/min BUN/Creatinine Ratio 11.5 10.0-20.0 Serum Glucose 223 H 74-106 mg/dL Hemoglobin A1c 7.5 H <5.7 % A1C Calcium Level 9.9 8.7-10.4 mg/dL B-Type Natriuretic Peptide 97.62 0-100 pg/mL Triglycerides Level 321 H < 150 mg/dL Cholesterol Level 170 < 200 mg/dL LDL Cholesterol 63 < 100 mg/dL HDL Cholesterol 48 40-59 mg/dL Thyroid Stimulating Hormone (TSH) 1.18 0.55-4.78 uIU/mL Urine Color Light-yellow Yellow Urine Clarity Clear Clear Urine pH 5.0 5.0-9.0 Urine Specific [place] 1.036 H 1.001-1.035 Urine Protein Negative Negative Urine Ketones Negative Negative Urine Blood Negative Negative /uL Urine Nitrite Negative Negative Urine Bilirubin Negative Negative Urine Urobilinogen Normal Negative mg/dL Urine Leukocyte Esterase Negative Negative /uL Urine RBC 1 0 - 3 /hpf Urine Microscopic WBC < 1 0-3 /HPF Urine Squamous Epithelial Cells None seen <5 /hpf Urine Bacteria None seen None Seen /hpf Urine Glucose 4+ H Normal mg/dL Urine Opiates Screen Pos NEGATIVE Urine Fentanyl Screen Neg NEGATIVE Urine Barbiturates Screen Neg NEGATIVE Urine Phencyclidine Screen Neg NEGATIVE Urine Amphetamines Screen Neg NEGATIVE Urine Benzodiazepines Screen Neg NEGATIVE Urine Cocaine Screen Neg NEGATIVE Urine Cannabinoids Screen Pos NEGATIVE Test 11/01/24 13:14 Range/Units POC Glucose 230 H 70-106 mg/dl Assessment Symptomatic bradycardia. Dizziness. SANTINO likely due to vasomotor nephropathy. Paroxysmal atrial fibrillation. Type 2 diabetes mellitus. Primary hypertension. Dyslipidemia. History of TIA and CVA. Plan/Recommendation I agree with your ongoing assessment and care of plan. Morphine and [place] for pain management. Lipitor. DVT prophylactics. Lisinopril. Nitro SL. Additional plan as per the hospital course. A total of 45 minutes was spent reviewing the patient record, examining the patient, making a diagnostic and therapeutic plan, discussing this plan with medical personnel, following up on diagnostic studies and following the patient for clinical stability excluding any and all procedures. At least 50% of this t bulmaro was spent in direct, [id number] contact. Plan discussed with: Patient BENOIT GARSIA MD Nov 01, 2024 23:42
[2024-11-02] VITALS (8 sets, daily range): BP systolic 101–143; BP diastolic 58–82; PULSE 46–83; RESP 15–18; TEMP 97.5–98.1; O2SAT 94–97
--- NOTE | 2024-11-02 06:48 | ECG ---
[facility] Test Date: 2024-11-01 Test Time: 13:18:03 Pat Name: CONSUELO CARLOS Department: ER Room: 0295T A Gender: M Acquisition Editor: KATHLEEN : 1960 Requested By: IBRAHIMA SINGLETON Order Number: [id number] Reading MD: Jacob Camacho Measurements Intervals [place] Rate: 50 P: 40 ID: [id number] QRS: 27 QRSD: 94 T: 29 QT: 444 QTc: 405 Interpretive Statements Sinus rhythm Low voltage, precordial leads Electronically Signed On 11-02-2024 17:40:34 PDT by Jacob Camacho Please click the below link to view image of tracing.
[2024-11-02 07:16] LABS: Basophils # (auto) 0.1 10 ^3/uL (0-0.2); Eosinophils # (auto) 0.1 10 ^3/uL (0-0.8); Eosinophils % (auto) 1.1 % (0.0-7.0); Hematocrit 44.9 % (41.0-53.0); Hemoglobin 15.1 g/dL (13.5-17.5); Lymphocytes # (auto) 1.5 10 ^3/uL (0.4-5.4); Lymphocytes % (auto) 17.3 % (10.0-50.0); Mean Corpuscular Hemoglobin 30.5 pg (28.0-32.0); Mean Corpuscular Hgb Conc. 33.6 g/dL (32.0-36.0); Mean Corpuscular Volume 90.8 fL (80.0-100.0); Monocytes # (auto) 0.7 10 ^3/uL (0-1.3); Monocytes % (auto) 8.3 % (0.0-12.0); Neutrophils # (auto) 6.3 10 ^3/uL (1.6-8.6); Neutrophils % (auto) 72.3 % (37.0-80.0); Platelet Count (auto) 169 10^3/uL (140-450); Red Blood Cells 4.94 10^6/uL (4.5-5.90); White Blood Cell 8.8 10^3/uL (4.4-10.8)
[2024-11-02 07:33] LABS: Anion Gap 11 (5-15); Carbon Dioxide 23 mmol/L (20-31); Potassium 3.8 mmol/L (3.5-5.1); Sodium 141 mmol/L (136-145)
[2024-11-02 07:34] LABS: Calcium 9.4 mg/dL (8.7-10.4); Chloride 107 mmol/L (98-107)
[2024-11-02 07:39] LABS: BUN/Creatinine Ratio 15.5 (10.0-20.0); Blood Urea Nitrogen 13 mg/dL (9-23)
[2024-11-02 07:41] LABS: Glucose 163 mg/dL (74-106)
[2024-11-02] MEDS: ATORVASTATIN 20 MG TAB PO SCH (09:26)
[2024-11-02] MEDS: LISINOPRIL 5 MG TAB PO SCH (09:27)
[2024-11-02] MEDS ORDERED: METO25TA93 PO (11:09)
[2024-11-02] MEDS ORDERED: TOPI25TA84 PO (11:10)
[2024-11-02] MEDS ORDERED: [UNRECOGNIZED DRUG - CODE] PO (11:15)
[2024-11-02] MEDS ORDERED: APIX2.5T PO (11:16)
[2024-11-02] MEDS ORDERED: TIZA4CAP PO (11:16)
[2024-11-02] MEDS ORDERED: MORP1TAB14 PO (11:19)
[2024-11-02] MEDS ORDERED: OMEP20TA PO (11:20)
[2024-11-02] MEDS ORDERED: MAGN400T40 PO (11:23)
[2024-11-02] MEDS ORDERED: EMPA1TAB3 PO (11:24)
[2024-11-02] MEDS ORDERED: DEXTROSE (50%) 50ML SYRG IV PRN (16:15)
[2024-11-02] MEDS: ACCU-CHEK COMFORT CURVE STRIP VI SCH (17:22)
[2024-11-02] MEDS: InsuLIN REG 1unit/0.01ml Soln (100units/ml) SC SCH (17:29)
[2024-11-02] MEDS: HYDROcodone-ACET 10/325MG TAB PO PRN (19:40)
--- NOTE | 2024-11-02 20:04 | DVHPN2 ---
Subjective dizziness improved Reviewed: H&P, Labs Changes from previous H/P or p: No Changes Eyes: No Pain, No Vision change, No Conjunctivae inflammation, No Eyelid inflammation, No Other, No Redness ENT: No Ear pain, No Ear discharge, No Nose pain, No Nose discharge, No Nose congestion, No Mouth pain, No Mouth swelling, No Throat pain, No Throat swelling, No Other Cardiovascular: Chest Pain; No Palpitations, No Orthopnea, No Paroxysmal Noc. Dyspnea, No Edema, No Lt Headedness, No Other Respiratory: No Cough, No Dry, No Shortness of breath; SOB with excertion; No Wheezing, No Hemoptysis, No Pleuritic Pain, No Sputum, No Other Gastrointestinal: No Nausea, No Vomiting, No Abdominal Pain, No Diarrhea, No Constipation, No Melena, No Hematochezia, No Other Genitourinary: No Dysuria, No Frequency, No Incontinence, No Hematuria, No Retention, No Other Musculoskeletal: No other, No neck pain, No shoulder pain, No arm pain, No back pain, No hand pain, No leg pain, No foot pain Skin: No Rash, No Lesions, No Jaundice, No Bruising, No Other Objective Vitals Vital Signs Date Time Temp Pulse Resp B/P (MAP) Pulse Ox O2 Delivery O2 Flow Rate FiO2 11/02/24 13:00 98.0 47 15 143/63 (89) 97 98.0 11/02/24 08:35 Room Air* 0 21 Intake/Output Intake and Output 11/02/24 07:00 Intake Total 225 ml Output Total 600 ml Balance -375 ml IV Total 225 ml Output Urine Total 600 ml General Appearance: Alert, Oriented X3 HEENT: Atraumatic Lungs: Clear to auscultation Cardiovascular: Regular rate, Normal S1, Normal S2 Abdomen: Normal bowel sounds Medications Current Medications Medications Dose Ordered Sig/James Route Start Time Stop Time Status Last Admin Dose Admin Nitroglycerin 0.4 mg Q5MINP PRN SL 11/01/24 19:15 Morphine Sulfate 2 mg Q30M PRN IV 11/01/24 19:15 Acetaminophen 650 mg Q6HP PRN PO 11/01/24 19:15 Enoxaparin Sodium 100 mg Q12HR SC 11/01/24 22:00 11/02/24 09:28 100 MG Lisinopril 5 mg DAILY PO 11/02/24 10:00 11/02/24 09:27 5 MG Atorvastatin Calcium 20 mg DAILY PO 11/02/24 10:00 11/02/24 09:26 20 MG Acetaminophen/ Hydrocodone Bitart 1 tab Q4HP PRN PO 11/02/24 16:15 11/02/24 19:40 1 TAB Diagnostic Test (Pha) 1 strip ACHS 11/02/24 17:00 11/02/24 17:22 1 STRIP Insulin Human Regular ACHS SC 11/02/24 17:00 11/02/24 17:29 2 UNITS Dextrose 50 ml UD PRN IV 11/02/24 16:15 Empaglifozin 25 mg DAILY PO 11/03/24 10:00 Topiramate 25 mg HS PO 11/02/24 22:00 Pregabalin 225 mg TID PO 11/02/24 22:00 Laboratory Results Laboratory Tests 11/02/24 06:17 Chemistry Test 11/02/24 06:17 Calcium Level 9.4 mg/dL (8.7-10.4) Urinalysis Test 11/01/24 13:15 Urine Color Light-yellow (Yellow) Urine Clarity Clear (Clear) Urine pH 5.0 (5.0-9.0) Urine Specific [place] 1.036 (1.001-1.035) Urine Protein Negative (Negative) Urine Ketones Negative (Negative) Urine Blood Negative /uL (Negative) Urine Nitrite Negative (Negative) Urine Bilirubin Negative (Negative) Urine Urobilinogen Normal mg/dL (Negative) Urine Leukocyte Esterase Negative /uL (Negative) Urine RBC 1 /hpf (0 - 3) Urine Microscopic WBC < 1 /HPF (0-3) Urine Squamous Epithelial Cells None seen /hpf (<5) Urine Bacteria None seen /hpf (None Seen) Urine Glucose 4+ mg/dL (Normal) H Microbiology Microbiology Date/Time Source Procedure Growth Status 11/01/24 23:55 Nose MRSA Screen - Final Complete Assessment/Plan Assessment/Plan Dizziness likely due to symptomatic bradycardia Acute symptomatic bradycardia SANTINO likely due to vasomotor nephropathy Paroxysmal atrial fibrillation Type 2 diabetes mellitus Primary hypertension Dyslipidemia History of TIA and CVA Monitor BMP monitor off metoprolol cardiology consulted echo pending Plan discussed with: Patient My Orders Orders - CORY CRONIN MD Procedure Category Date Status Time Hydrocodone-Acet PHA 11/02/24 In Process 10/325mg Tab ([place] 16:15 Glucose Blood PHA 11/02/24 In Process (Accu-Chek Comfort 17:00 Insulin R (Human) PHA 11/02/24 In Process (Insulin R) 17:00 Dextrose 50% Syringe PHA 11/02/24 In Process 16:15 Empagliflozin PHA 11/03/24 In Process ([place]) 10:00 Topiramate (Topamax) PHA 11/02/24 In Process 22:00 Pregabalin Capsule PHA 11/02/24 In Process (Lyrica Capsule) 22:00 Date of Service: Nov 02, 2024 Billing Provider: CORY CRONIN MD Common Visit Codes: [id number] INP/OBS CARE(HIGH) CORY CRONIN MD Nov 02, 2024 20:04
[2024-11-02] MEDS ORDERED: PREGABALIN CAPSULE 75 MG CAP PO SCH (22:00)
[2024-11-02] MEDS ORDERED: PREGABALIN 25 MG CAP PO SCH ×2 (22:00)
[2024-11-02] MEDS: PREGABALIN CAPSULE 75 MG CAP PO SCH (22:19)
[2024-11-02] MEDS: TOPIRAMATE 25 MG TAB PO SCH (22:19)
--- NOTE | 2024-11-03 00:05 | DVHPN2 ---
Progress Note - Dictate Date Seen: Nov 02, 2024 Medical Necessity Reason Pt with a Central, PICC or Fol: No Subjective Patient was seen and evaluated in follow up. Patient is complaining of dizziness. Patient is complaining of SOB and some chest discomfort. CBC and CMP are unremarkable. MRSA is negative. Telemetry reviewed. vital signs Vital Sign Date Time Temp Pulse Resp B/P (MAP) Pulse Ox O2 Delivery O2 Flow Rate FiO2 11/02/24 21:00 98.1 83 18 121/82 (95) 94 98.1 11/02/24 20:00 Room Air* 0 21 Total Intake and Output 11/02/24 11/02/24 11/03/24 15:00 23:00 07:00 Intake Total 1200 ml Balance 1200 ml medications Current Medications Medications Dose Ordered Sig/James Route Start Time Stop Time Status Last Admin Dose Admin Nitroglycerin 0.4 mg Q5MINP PRN SL 11/01/24 19:15 Morphine Sulfate 2 mg Q30M PRN IV 11/01/24 19:15 Acetaminophen 650 mg Q6HP PRN PO 11/01/24 19:15 Enoxaparin Sodium 100 mg Q12HR SC 11/01/24 22:00 11/02/24 22:19 100 MG Lisinopril 5 mg DAILY PO 11/02/24 10:00 11/02/24 09:27 5 MG Atorvastatin Calcium 20 mg DAILY PO 11/02/24 10:00 11/02/24 09:26 20 MG Acetaminophen/ Hydrocodone Bitart 1 tab Q4HP PRN PO 11/02/24 16:15 11/02/24 19:40 1 TAB Diagnostic Test (Pha) 1 strip ACHS 11/02/24 17:00 11/02/24 22:09 1 STRIP Insulin Human Regular ACHS SC 11/02/24 17:00 11/02/24 22:13 3 UNITS Dextrose 50 ml UD PRN IV 11/02/24 16:15 Empaglifozin 25 mg DAILY PO 11/03/24 10:00 Topiramate 25 mg HS PO 11/02/24 22:00 11/02/24 22:19 25 MG Pregabalin 225 mg TID PO 11/02/24 22:00 11/02/24 22:19 225 MG objective GENERAL: Alert and oriented x 3. No acute distress. EYES: PERRL, EOMI. Anicteric. HENT: Moist mucous membranes. LUNGS: Clear to auscultation bilaterally. CARDIOVASCULAR: Regular rate and rhythm. ABDOMEN: Soft, non-tender and non-distended. EXTREMITIES: No edema. NEUROLOGIC: No focal neurological deficits. SKIN: Warm, dry. laboratory and microbiology Laboratory Tests 11/02/24 06:17 Test 11/02/24 06:17 Range/Units Serum Glucose 163 H 74-106 mg/dL Problem List Symptomatic bradycardia. Dizziness. SANTINO likely due to vasomotor nephropathy. Paroxysmal atrial fibrillation. Type 2 diabetes mellitus. Primary hypertension. Dyslipidemia. History of TIA and CVA. Assessment/Plan Continued all current supportive medical care. Morphine and [place] for pain management. Lipitor. DVT prophylactics. Lisinopril. Nitro SL. Additional plan as per the hospital course. Plan discussed with: Patient BENOIT GARSIA MD Nov 03, 2024 00:05
[2024-11-03 01:00] VITALS: BP 122/69; PULSE 50; RESP 18; TEMP 97.8; O2SAT 95
[2024-11-03 05:00] VITALS: BP 152/66; PULSE 51; RESP 18; TEMP 98.1; O2SAT 97
[2024-11-03 08:00] VITALS: PULSE 48
[2024-11-03 09:30] VITALS: BP 140/68; PULSE 49; RESP 16; TEMP 97.5; O2SAT 95
[2024-11-03] MEDS: EMPAGLIFLOZIN 10 MG TAB PO SCH (09:52)
[2024-11-03 11:40] LABS: Hepatitis B Surface Antigen Negative (Negative); Hepatitis C Antibody Negative (Negative)
[2024-11-03 11:47] LABS: Folate (Folic Acid) 18.18 ng/mL (>5.38)
[2024-11-03 12:54] VITALS: BP 126/64; PULSE 51; RESP 18; TEMP 97.6; O2SAT 96
--- NOTE | 2024-11-03 16:21 | DVHDS2 ---
Discharge Summary Date of Admission Nov 01, 2024 at 19:05 Date of Discharge: Nov 03, 2024 Labs/Diagnostic Data: Laboratory Results Test 11/03/24 11:15 11/02/24 06:17 11/01/24 20:16 11/01/24 14:24 POC Glucose 180 mg/dl (70-106) White Blood Count 8.8 10^3/uL (4.4-10.8) Red Blood Count 4.94 10^6/uL (4.5-5.90) Hemoglobin 15.1 g/dL (13.5-17.5) Hematocrit 44.9 % (41.0-53.0) Mean Corpuscular Volume 90.8 fL (80.0-100.0) Mean Corpuscular Hemoglobin 30.5 pg (28.0-32.0) Mean Corpuscular Hemoglobin Concent 33.6 g/dL (32.0-36.0) Red Cell Distribution Width 14.0 % (11.8-14.3) Platelet Count 169 10^3/uL (140-450) Mean Platelet Volume 10.0 fL (6.9-10.8) Neutrophils (%) (Auto) 72.3 % (37.0-80.0) Lymphocytes (%) (Auto) 17.3 % (10.0-50.0) Monocytes (%) (Auto) 8.3 % (0.0-12.0) Eosinophils (%) (Auto) 1.1 % (0.0-7.0) Basophils (%) (Auto) 1.0 % (0.0-2.0) Neutrophils # (Auto) 6.3 10 ^3/uL (1.6-8.6) Lymphocytes # (Auto) 1.5 10 ^3/uL (0.4-5.4) Monocytes # (Auto) 0.7 10 ^3/uL (0-1.3) Eosinophils # (Auto) 0.1 10 ^3/uL (0-0.8) Basophils # (Auto) 0.1 10 ^3/uL (0-0.2) Nucleated Red Blood Cells 0.0 % Sodium Level 141 mmol/L (136-145) Potassium Level 3.8 mmol/L (3.5-5.1) Chloride Level 107 mmol/L (98-107) Carbon Dioxide Level 23 mmol/L (20-31) Anion Gap 11 (5-15) Blood Urea Nitrogen 13 mg/dL (9-23) Creatinine 0.84 mg/dL (0.700-1.30) Glomerular Filtration Rate Calc 98 mL/min (>90) BUN/Creatinine Ratio 15.5 (10.0-20.0) Serum Glucose 163 mg/dL (74-106) Calcium Level 9.4 mg/dL (8.7-10.4) Hepatitis B Surface Antigen Negative (Negative) Hepatitis C Antibody Negative (Negative) Influenza Type A Antigen Negative (Negative) Influenza Type B Antigen Negative (Negative) SARS-CoV-2 Antigen (Rapid) Negative (NEGATIVE) Troponin I High Sensitivity 6 ng/L (</=54) Test 11/01/24 13:19 11/01/24 13:15 Hemoglobin A1c 7.5 % A1C (<5.7) B-Type Natriuretic Peptide 97.62 pg/mL (0-100) Triglycerides Level 321 mg/dL (< 150) Cholesterol Level 170 mg/dL (< 200) LDL Cholesterol 63 mg/dL (< 100) HDL Cholesterol 48 mg/dL (40-59) Vitamin B12 Level 531 pg/mL (211-911) Folic Acid 18.18 ng/mL (>5.38) Thyroid Stimulating Hormone (TSH) 1.18 uIU/mL (0.55-4.78) Free Thyroxine (T4) Calculated 1.11 ng/dL (0.89-1.76) Urine Color Light-yellow (Yellow) Urine Clarity Clear (Clear) Urine pH 5.0 (5.0-9.0) Urine Specific [place] 1.036 (1.001-1.035) Urine Protein Negative (Negative) Urine Ketones Negative (Negative) Urine Blood Negative /uL (Negative) Urine Nitrite Negative (Negative) Urine Bilirubin Negative (Negative) Urine Urobilinogen Normal mg/dL (Negative) Urine Leukocyte Esterase Negative /uL (Negative) Urine RBC 1 /hpf (0 - 3) Urine Microscopic WBC < 1 /HPF (0-3) Urine Squamous Epithelial Cells None seen /hpf (<5) Urine Bacteria None seen /hpf (None Seen) Urine Glucose 4+ mg/dL (Normal) Urine Opiates Screen Pos (NEGATIVE) Urine Fentanyl Screen Neg (NEGATIVE) Urine Barbiturates Screen Neg (NEGATIVE) Urine Phencyclidine Screen Neg (NEGATIVE) Urine Amphetamines Screen Neg (NEGATIVE) Urine Benzodiazepines Screen Neg (NEGATIVE) Urine Cocaine Screen Neg (NEGATIVE) Urine Cannabinoids Screen Pos (NEGATIVE) Other Laboratory Tests 11/02/24 06:17 Brief Hx & Hospital Course: 64-year-old male with past medical history of AFib, asthma, CVA, type 2 diabetes mellitus, dyslipidemia, hypertension, TIA who presented to the ED due to dizziness. The patient states that he started feeling dizzy but there was no loss of consciousness at any time. Patient reports that this morning before coming to the ED he had an appointment with his PCP Dr. Bartlett, at that time he started feeling dizzy and weak, during the consult they checked his blood pressure and pulse and he was having significant bradycardia in the 40s. His PCP referred him to the ED for further assessment and management of symptomatic bradycardia which he has been dealing with it for months. The patient also reported feeling minimal chest discomfort and mild shortness of breath during the episode of dizziness. The patient denies fever/chills, abdominal pain, vertigo or any other associated symptoms. Upon admission, CBC and BMP were grossly unremarkable. BNP was normal range and troponins came back negative. EKG was reviewed which showed sinus bradycardia at 50s with no significant AV blockage. Chest x-ray was grossly unremarkable without any evidence of consolidations and head CT was unremarkable as well. We will consult Cardiology for further assessment of symptomatic bradycardia to determine the possibility of a pacemaker. We will admit the patient for further assessment and management. Held metoprolol per cardiology HR improved discharged off metoprolol Condition at Discharge: Good Final Diagnosis/Problems List bradycardia Discharge Disposition: Home Discharge Instruct/Medications Diet: Regular Activity: No Restrictions, As Tolerated Follow Up/Referral: cardiology Medications: same home medications Discharge Statement: "Patient was advised to return to the ER or call 911 if any headaches, dizziness, shortness of breath, chest pain, abdominal pain, bleeding, fevers, or worsening of medical condition. Patient was counseled about treatment plan, medications, possible side effects, patientverbalized understanding. All questions were answered to the best of my ability. This discharge took greater then 30 minutes in planning, reviewing documentation, counseling the patient, and discussing with other team members." ASSESSMENT ASSESSMENT Assessment bradycardia Date of Service: Nov 03, 2024 Billing Provider: CORY CRONIN MD Common Visit Codes: [id number] DISCH DAY >30min CORY CRONIN MD Nov 03, 2024 16:21
[2024-11-03 16:37] VITALS: BP 142/87; PULSE 53; RESP 18; TEMP 97.8; O2SAT 97
--- NOTE | 2024-11-03 17:54 | DVHPN2 ---
Progress Note - Dictate Date Seen: Nov 03, 2024 Medical Necessity Reason Pt with a Central, PICC or Fol: No Subjective Patient was seen and evaluated in follow up. Patient has no new complaints at this time. Patient denies any cardiac symptoms. Patient is cardiac stable for discharge. Telemetry reviewed. vital signs Vital Sign Date Time Temp Pulse Resp B/P (MAP) Pulse Ox O2 Delivery O2 Flow Rate FiO2 11/03/24 12:54 97.6 51 18 126/64 (84) 96 97.6 11/03/24 08:00 Room Air* 0 21 Total Intake and Output 11/02/24 11/02/24 11/03/24 15:00 23:00 07:00 Intake Total 1200 ml 450 ml Balance 1200 ml 450 ml medications Current Medications Medications Dose Ordered Sig/James Route Start Time Stop Time Status Last Admin Dose Admin Nitroglycerin 0.4 mg Q5MINP PRN SL 11/01/24 19:15 Morphine Sulfate 2 mg Q30M PRN IV 11/01/24 19:15 Acetaminophen 650 mg Q6HP PRN PO 11/01/24 19:15 Enoxaparin Sodium 100 mg Q12HR SC 11/01/24 22:00 11/03/24 09:48 100 MG Lisinopril 5 mg DAILY PO 11/02/24 10:00 11/03/24 09:51 5 MG Atorvastatin Calcium 20 mg DAILY PO 11/02/24 10:00 11/03/24 09:50 20 MG Acetaminophen/ Hydrocodone Bitart 1 tab Q4HP PRN PO 11/02/24 16:15 11/03/24 09:50 1 TAB Diagnostic Test (Pha) 1 strip ACHS 11/02/24 17:00 11/03/24 11:30 1 STRIP Insulin Human Regular ACHS SC 11/02/24 17:00 11/03/24 11:30 3 UNITS Dextrose 50 ml UD PRN IV 11/02/24 16:15 Empaglifozin 25 mg DAILY PO 11/03/24 10:00 11/03/24 09:52 25 MG Topiramate 25 mg HS PO 11/02/24 22:00 11/02/24 22:19 25 MG Pregabalin 225 mg TID PO 11/02/24 22:00 11/03/24 12:37 225 MG objective GENERAL: Alert and oriented x 3. No acute distress. EYES: PERRL, EOMI. Anicteric. HENT: Moist mucous membranes. LUNGS: Clear to auscultation bilaterally. CARDIOVASCULAR: Regular rate and rhythm. ABDOMEN: Soft, non-tender and non-distended. EXTREMITIES: No edema. NEUROLOGIC: No focal neurological deficits. SKIN: Warm, dry. laboratory and microbiology Laboratory Tests 11/02/24 06:17 Test 11/02/24 06:17 Range/Units Serum Glucose 163 H 74-106 mg/dL Problem List Symptomatic bradycardia. Dizziness. SANTINO likely due to vasomotor nephropathy. Paroxysmal atrial fibrillation. Type 2 diabetes mellitus. Primary hypertension. Dyslipidemia. History of TIA and CVA. Assessment/Plan Continued all current supportive medical care. Morphine and [place] for pain management. Lipitor. DVT prophylactics. Lisinopril. Nitro SL. Additional plan as per the hospital course. Plan discussed with: Patient BENOIT GARSIA MD Nov 03, 2024 15:59
== END 2024-11-03 16:30 | disposition home or self-care (01) | DRG 201 ==
LOC: ER 13:03 → OVERFLOW 19:05 → TELE-WESTW 22:40
PROVIDERS: ADMIT Hospitalist; ATTEND Hospitalist
DX: R00.1 Bradycardia, unspecified (principal); N17.0 Acute kidney failure with tubular necrosis; I48.0 Paroxysmal atrial fibrillation; E11.9 Type 2 diabetes mellitus without complications; R42 Dizziness and giddiness; E78.5 Hyperlipidemia, unspecified; I10 Essential (primary) hypertension; J45.909 Unspecified asthma, uncomplicated; Z20.822 Contact with and (suspected) exposure to COVID-19; R55 Syncope and collapse; Z86.73 Personal history of transient ischemic attack (TIA), and cerebral infarction without residual deficits; Z83.3 Family history of diabetes mellitus; Z82.49 Family history of ischemic heart disease and other diseases of the circulatory system; Z80.3 Family history of malignant neoplasm of breast
CPT/HCPCS: 36415; 70450; 71045; 80048; 80061; 80307; 81001; 82607; 82746; 82962; 83036; 83880; 84439; 84443; 84484; 85025; 86803; 87081; 87340; 87426; 87804; 93005; 96360; 99291; G0378; J1815